=== PATIENT | male | born 1955 | race Caucasian/White ===

== ENCOUNTER → 2018-06-19 08:53 | Outpatient (CLI) | payer OTHER, SELFPAY ==
--- NOTE | 2018-06-19 09:00 | RAD_ITS ---
STUDY: X-RAY CHEST REASON FOR EXAM: Male, 62 years old. Pleural effusion TECHNIQUE: PA and lateral views of the chest. COMPARISON: None. FINDINGS: The lungs are clear and expanded. There is a small left-sided effusion. Normal size heart. Normal mediastinum and jaylyn. Normal visualized pulmonary arteries. Normal visualized aortic arch and descending thoracic aorta. There is a mild thoracolumbar dextroscoliosis. Normal visualized ribs, clavicles, and shoulders. There is no demonstrated abnormality of the visualized soft tissue structures of the upper abdomen. RAD/Chest PA and Lateral IMPRESSION: Small left-sided effusion. Mild thoracolumbar dextroscoliosis. Electronically Signed: Andrea Gary MD at 17:51 EDT , Service support ,
== END ==
PROVIDERS: Family Provider Family Medicine; PCP Family Medicine; Referring Provider Family Medicine; Visit Provider Family Medicine
DX: J90 Pleural effusion, not elsewhere classified (principal)
CPT/HCPCS: 71046

== ENCOUNTER → 2018-11-02 10:15 | Outpatient (CLI) | payer OTHER, SELFPAY ==
[2018-11-02 11:24] LABS: Absolute Lymphocyte Count 0.97 X10^3/uL (0.83-4.51); Absolute Neutrophil Count 2.4 X10^3/uL (2.0-7.7); Basophil# 0.04 X10^3/uL; Basophil% 0.9 % (0-1); Eosinophil# 0.18 X10^3/uL; Eosinophils% 4.1 % (0-5); Hematocrit 43.1 % (40-54); Hemoglobin 14.8 g/dL (13.0-16.5); Lymphocyte # 0.97 X10^3/ul (4.0); Lymphocyte % 22.2 % (19-41); Mean Corp Hgb Conc 34.3 g/dL (32-36); Mean Corpuscular Hgb 34.2 pg (27.0-32.0); Mean Corpuscular Volume 99.5 fL (80-94); Mean Platelet Vol. 10.7 fl (6.2-12.0); Monocyte# 0.73 X10^3/uL; Monocyte% 16.7 % (0-10); NRBC Flagged by Analyzer 0 % (0-5); Neutrophil # 2.42 X10^3/uL (2.7-7.7); Neutrophil % 55.6 % (47-70); Platelet Count 60 K/mm3 (150-450); RBC Distribution Width CV 16.2 % (11.6-14.6); RBC Distribution Width SD 59.4 fl (35.1-43.9); Red Blood Count 4.33 M/mm3 (4.6-6.2); White Blood Count 4.4 K/mm3 (4.4-11.0)
[2018-11-02 11:54] LABS: Anion Gap 11 (5-15); BUN 11 mg/dL (7-18); BUN/Creat Ratio 13.2 RATIO (10-20); Calcium,Total 9.1 mg/dL (8.5-10.1); Chloride 99 mmol/L (98-107); Creatinine, Serum 0.83 mg/dL (0.70-1.30); EST Glomerular Filtration Rate 99 mL/min (>60); Est Glom Filt Rate - Afr Amer 120 mL/min (>60); Glucose 92 mg/dL (74-106); Potassium 3.7 mmol/L (3.5-5.1); Sodium Level 135 mmol/L (136-145); T4 Total, Thyroxin 12.7 ug/dL (4.5-12.1); Thyroid Stim Hormone (TSH) 4.52 uIU/mL (0.358-3.74)
[2018-11-02 17:54] LABS: AST(SGOT) 130 U/L (15-37); Alanine Aminotransfer ALT/SGPT 62 U/L (16-61); Albumin, Serum 3.4 g/dL (3.2-5.0); Alkaline Phosphatase 234 U/L (45-117); Bilirubin, Direct 2.46 mg/dL (0.00-0.30); Globulin 4.4 g/dL (2.2-4.2); Protein, Total 7.8 g/dL (6.4-8.2)
[2018-11-03 09:59] LABS: T3 Total - Triiodothyronine 0.83 ng/mL (0.6-1.81)
== END ==
PROVIDERS: Family Provider Family Medicine; PCP Family Medicine; Referring Provider Family Medicine; Visit Provider Family Medicine
DX: R74.8 Abnormal levels of other serum enzymes (principal); R63.4 Abnormal weight loss
CPT/HCPCS: 36415; 80048; 80076; 84436; 84443; 84480; 85025

== ENCOUNTER → 2018-11-27 07:14 | Outpatient (CLI) | payer OTHER, SELFPAY ==
--- NOTE | 2018-11-27 07:17 | CT_ITS ---
STUDY: CT ABDOMEN WITH CONTRAST REASON FOR EXAM: Male, 62 years old. Elevated LFTs RADIATION DOSAGE (If Supplied By Facility): CTDIvol = ( 10.95 ) mGy, DLP = ( 383.05 ) mGycm TECHNIQUE: Transaxial images were obtained post I.V. administration of 100ml IV/Oral Isovue 300, and oral contrast. Sagittal and coronal images were reconstructed. Individualized dose optimization techniques were used for this CT. COMPARISON: None. FINDINGS: The visualized lung bases are unremarkable. The visualized portions of the heart are within normal limits. The liver is fatty infiltrated without mass or bile duct dilatation. Contracted thick-walled gallbladder containing sludge with subtle pericholecystic fluid. If concern for gallbladder disease ultrasound recommended.. Spleen is enlarged but homogeneous attenuation. Pancreas is normal in size and homogeneous attenuation. There is effacement of the peripancreatic fat which may represent early changes of acute pancreatitis. Normal bilateral adrenal glands. Normal right kidney. Normal left kidney. Normal visualized stomach. Normal small intestine. Normal colon. The appendix is visualized and appears normal. Minor atherosclerotic changes of the aorta without evidence for aneurysm Normal inferior vena cava. Normal retroperitoneum. Normal abdominal wall. Normal osseous structures. CT/Abdomen WITH IV Contrast IMPRESSION: Fatty infiltrated liver and splenomegaly Contracted thick-walled gallbladder with pericholecystic edema possibly representing acute cholecystitis. There is also mild effacement of the peripancreatic fat and mild pancreatitis cannot be entirely excluded. Clinical correlation recommended. Electronically Signed: Richard Elaine MD at 17:24 EDT , Service support ,
== END ==
PROVIDERS: Family Provider Family Medicine; PCP Family Medicine; Referring Provider Family Medicine; Visit Provider Family Medicine
DX: R74.8 Abnormal levels of other serum enzymes (principal)
CPT/HCPCS: 74160; Q9967

== ENCOUNTER → 2018-11-30 15:14 | Outpatient (CLI) | payer OTHER, SELFPAY ==
[2018-11-30 17:12] LABS: ALB/GLOB Ratio 0.7 RATIO (0.9-2.4); AST(SGOT) 63 U/L (15-37); Alanine Aminotransfer ALT/SGPT 51 U/L (16-61); Albumin, Serum 2.9 g/dL (3.2-5.0); Alkaline Phosphatase 162 U/L (45-117); Amylase 80 U/L (25-115); Anion Gap 8 (5-15); BUN 7 mg/dL (7-18); BUN/Creat Ratio 8.4 RATIO (10-20); Calcium,Total 8.7 mg/dL (8.5-10.1); Chloride 107 mmol/L (98-107); Creatinine, Serum 0.83 mg/dL (0.70-1.30); EST Glomerular Filtration Rate 99 mL/min (>60); Est Glom Filt Rate - Afr Amer 119 mL/min (>60); Globulin 4.1 g/dL (2.2-4.2); Glucose 89 mg/dL (74-106); Lipase 383 U/L (73-393); Potassium 3.5 mmol/L (3.5-5.1); Sodium Level 141 mmol/L (136-145)
[2018-11-30 17:18] LABS: Absolute Lymphocyte Count 1.55 X10^3/uL (0.83-4.51); Absolute Neutrophil Count 3.5 X10^3/uL (2.0-7.7); Basophil# 0.05 X10^3/uL; Basophil% 0.8 % (0-1); Eosinophil# 0.36 X10^3/uL; Eosinophils% 6.1 % (0-5); Hematocrit 43.9 % (40-54); Hemoglobin 14.9 g/dL (13.0-16.5); Lymphocyte # 1.55 X10^3/ul (4.0); Lymphocyte % 26.2 % (19-41); Mean Corp Hgb Conc 33.9 g/dL (32-36); Mean Corpuscular Hgb 34.9 pg (27.0-32.0); Mean Corpuscular Volume 102.8 fL (80-94); Mean Platelet Vol. 10.4 fl (6.2-12.0); Monocyte# 0.43 X10^3/uL; Monocyte% 7.3 % (0-10); NRBC Flagged by Analyzer 0 % (0-5); Neutrophil % 59.3 % (47-70); Platelet Count 93 K/mm3 (150-450); RBC Distribution Width CV 13.6 % (11.6-14.6); RBC Distribution Width SD 51.8 fl (35.1-43.9); Red Blood Count 4.27 M/mm3 (4.6-6.2); White Blood Count 5.9 K/mm3 (4.4-11.0)
== END ==
PROVIDERS: Family Provider Family Medicine; PCP Family Medicine; Referring Provider Family Medicine; Visit Provider Family Medicine
DX: K85.20 Alcohol induced acute pancreatitis without necrosis or infection (principal)
CPT/HCPCS: 36415; 80053; 82150; 83690; 85025

== ENCOUNTER 2021-05-23 11:48 | Inpatient (IN) | payer MEDICARE, SELFPAY ==
[2021-05-23] VITALS (9 sets, daily range): BP systolic 143–170; BP diastolic 78–97; PULSE 98–121; RESP 16–24; TEMP 36.8–37.2; O2SAT 92–93; BMI 27.5; BMI 26.6
--- NOTE | 2021-05-23 12:05 | US_ITS ---
STUDY: ABDOMINAL ULTRASOUND REASON FOR EXAM: Male, 65 years old. Jaundice -- ascites, eval liver, pancreas, spleen TECHNIQUE: Transabdominal ultrasound was performed with real-time and static smith scale imaging. TECHNICAL QUALITY: Limited. Examination limited due to the patient?s condition. COMPARISON: Comparison is made with prior CT scan the abdomen dated 11/27/2018. FINDINGS: Liver: The liver measures 13.5 cm. There is a heterogeneous echogenicity of the liver. Nodular contour suggestive of cirrhosis. The bile ducts are within normal limits. There is hepatic color flow. The direction of portal flow is hepatopetal. There is no demonstrated mass lesion. Portal vein measurement: Gallbladder: Normal distended gallbladder. The gallbladder wall is thickened and measures 4 mm. There is a negative sonographic Denson''s sign. There is no pericholecystic fluid. There are multiple echogenic structures within the gallbladder, consistent with multiple gallstones. Common Bile Duct (C.B.D.): The common bile duct was not visualized due to overlying bowel gas. Pancreas: Normal size of the head, body and tail of the pancreas. There is normal echogenicity of the pancreas. There is no demonstrated pancreatic mass or cyst. Spleen: There is splenomegaly. The spleen measures 14.6 cm x 7.3 cm x 7.7 cm. Right Kidney: Normal size of the right kidney. The right kidney measures 10.3 cm x 5.3 cm x 7.1 cm. Normal renal cortex. The right cortex measures 2.3 cm. There is no demonstrated renal mass or cyst. There is no right hydronephrosis. Left Kidney: Normal size of the left kidney. The left kidney measures 10.2 cm x 5.7 cm x 5.4 cm. Normal renal cortex. The left cortex measures 1.3 cm. There is no demonstrated renal mass or cyst. There is no left hydronephrosis. Aorta: Atherosclerotic plaque I.V.C.: The IVC is patent. There is mild ascites. US/Abdomen Complete IMPRESSION: Findings suggestive of a cirrhosis of the liver. Multiple gallstones. Splenomegaly. Ascites Electronically Signed: Andrzej Moncada MD at 14:15 EST ,
--- NOTE | 2021-05-23 12:05 | EKG12_ITS ---
Test Reason : ABDOMINAL PAIN Blood Pressure : / mmHG Vent. Rate : 105 BPM Atrial Rate : 105 BPM P-R Int : 170 ms QRS Dur : 098 ms QT Int : 374 ms P-R-T Axes : 048 -13 041 degrees QTc Int : 494 ms Sinus tachycardia Otherwise normal ECG Confirmed by MARY CARMEN FUENTES, BAM ([id number]), fan mail editor DAREN JIMÉNEZ ([id number]) on 05/24/2021 10:21:23 A M Referred By: FIDEL Confirmed By:ODILON LENTZ MD
--- NOTE | 2021-05-23 12:10 | NURSING ---
NO OLD EKGS
[2021-05-23] MEDS: 0.9% Normal Saline 1,000 ML 1000 ML IV (12:18)
[2021-05-23 12:31] LABS: AST(SGOT) 311 U/L (15-37); Alanine Aminotransfer ALT/SGPT 113 U/L (16-61); Albumin, Serum 2.7 g/dL (3.2-5.0); Alkaline Phosphatase 268 U/L (45-117); Anion Gap 12 (5-15); BUN 16 mg/dL (7-18); BUN/Creat Ratio 13.1 RATIO (10-20); Bilirubin, Direct 8.97 mg/dL (0.00-0.30); Chloride 94 mmol/L (98-107); Creatinine, Serum 1.22 mg/dL (0.70-1.30); EST Glomerular Filtration Rate 63 mL/min (>60); Est Glom Filt Rate - Afr Amer 76 mL/min (>60); Globulin 5.2 g/dL (2.2-4.2); Glucose 134 mg/dL (74-106); Lipase 789 U/L (73-393); Potassium 3.7 mmol/L (3.5-5.1); Protein, Total 7.9 g/dL (6.4-8.2); Sodium Level 130 mmol/L (136-145)
[2021-05-23 12:38] LABS: International Normalized Ratio 1.9; Partial Thromboplast Time 45.1 Seconds (24.1-36.2); Prothrombin Time (Protime)PT. 20.7 SECONDS (11.7-14.9)
[2021-05-23 13:05] LABS: Absolute Lymphocyte Count 0.94 X10^3/uL (0.83-4.51); Absolute Neutrophil Count 4.6 X10^3/uL (2.0-7.7); Basophil# 0.03 X10^3/uL; Basophil% 0.5 % (0-1); Eosinophil# 0.05 X10^3/uL; Eosinophils% 0.8 % (0-5); Hemoglobin 16.5 g/dL (13.0-16.5); Lymphocyte # 0.94 X10^3/ul (0.83-4.51); Lymphocyte % 14.5 % (19-41); Mean Corp Hgb Conc 37.5 g/dL (32-36); Mean Corpuscular Hgb 37.3 pg (27.0-32.0); Mean Corpuscular Volume 99.5 fL (80-94); Mean Platelet Vol. 11.9 fl (6.2-12.0); Monocyte# 0.85 X10^3/uL; Monocyte% 13.1 % (0-10); NRBC Flagged by Analyzer 0 % (0-5); Neutrophil # 4.58 X10^3/uL (2.7-7.7); Neutrophil % 70.8 % (47-70); POSITIVE COUNT YES; POSITIVE MORPHOLOGY YES; RBC Distribution Width CV 19.2 % (11.6-14.6); RBC Distribution Width SD 69.5 fl (35.1-43.9); Red Blood Count 4.42 M/mm3 (4.6-6.2); White Blood Count 6.5 K/mm3 (4.4-11.0)
[2021-05-23 13:07] LABS: Differential Indicated SCAN CRITERIA MET
--- NOTE | 2021-05-23 13:16 | EDS_ITS ---
HPI HPI - GI History of Present Illness Chief Complaint: Abd Pain Informant: patient and spouse/S.O. Narrative Narrative: Patient presenting significant other evaluation increasing abdominal distention and nausea over the past 3 weeks. History of alcohol dependence, he states he was told he had fatty liver 2 to 3 years ago outpatient work-up. He was sober for 10 months however started drinking again. He states he was drinking 2 beers a day would have 2-3 bourbons each evening. Over last 3 to 4 weeks increasing bourbon intake states 750ml bottle would last 3 days. They have also been noticing yellowing of eyes and skin over the same period time. Reports sinus congestion and intermittent dizziness over this period of time. No cough. No vomiting or diarrhea. Today however he was told he had a bowel movement to have black tarry stools. Denies abdominal pain. He does not take anticoagulation medications. He has never seen GI, has never had an upper endoscopy. Nonvaccinated for Covid. Prior similar symptoms: No PFSH PFSH Medical History (Updated 05/23/21 @ 16:[address] Danny Gleason DO) Cirrhosis ETOH abuse Hepatitis Home Medications NK 05/23/21 [History Last Taken Unknown] Allergy/AdvReac Type Severity Reaction Status Date / Time No Known Allergies Allergy Verified 05/23/21 11:49 Surgical History Previous back surgery Social History Smoking Status: Current every day smoker tobacco type: smokeless tobacco ROS ROS ED Constitutional Constitutional ED: Denies chills, fever(s) or sweats Eyes Eyes: Denies change in vision ENT ENT ED: Reports other Details: Sinus congestion ; Denies dysphagia or sore throat Cardiovascular Cardiovascular: Denies chest pain, leg edema, palpitations or racing heartbeat Respiratory/Chest Respiratory/Chest: Denies cough, dyspnea or dyspnea on exertion Gastrointestinal Gastrointestinal: Reports other Details: Abdominal distention, melena ; Denies abdominal pain, diarrhea, nausea or vomiting Genitourinary Genitourinary ED: Denies dysuria, hematuria or urinary frequency Musculoskeletal Musculoskeletal: Denies back pain, extremity pain or neck pain Integumentary Reports other Details: Yellowing of skin ; Denies rash or wounds Neurologic Neurologic: Denies headache(s), paresthesias or weakness EXAM Physical Exam Const Vital Signs: 05/23/21 11:49 05/23/21 13:25 Temperature 98.3 F Temperature Source Temporal Pulse Rate 121 H 101 H Respiratory Rate 24 H 21 H Blood Pressure 166/97 H 143/89 H Blood Pressure Mean 120 107 Pulse Ox 92 93 Oxygen Delivery Method Room Air Room Air Constitutional Narrative: Generalized jaundice, nontoxic General Appearance ED: NAD HEENT Reports moist mucous membranes normocephalic and atraumatic Eyes PERRL, EOMs intact bilaterally and conjunctivae normal General Eye ED: Yes normal appearance of both eyes and scleral icterus Neck no lymphadenopathy and supple General: Negative for tenderness Chest Wall Chest: Negative for tenderness Resp normal respiratory effort and normal air movement Effort and Inspection: symmetric chest movement; Negative for respiratory distress Cardio regular rhythm and no murmurs Rate: tachycardic Peripheral Pulses: pulses 2+ throughout GI normal to inspection, nondistended, normoactive bowel sounds and non-tender GI Narrative: Rectal exam, green color stool, guaiac returned positive. Inspection: abdominal distention Palpation: Negative for guarding or rebound tenderness present Back/Spine no CVA tenderness and no thoracic nor lumbar tenderness Extremity normal to inspection General Extremety ED: Negative for edema or tenderness General Extremity: Negative for edema Neuro oriented x3 and no sensory deficits noted Sensorium / Orientation: awake and alert Skin no rashes or lesions noted and no wounds MDM MDM MDM Narrative Medical decision making narrative: Patient clinical jaundice with concerns for hyperbilirubinemia he has distended abdomen with likely ascites with alcohol history. Stool guaiac was positive. Initially tachycardic which improved with fluids blood pressure stable. He is alert and oriented x3. Work-up initiated noting platelets of 40, INR 1.9, sodium 130, creatinine 1.22, total bili 12.8, direct bili 8.9, AST 311, ALT 113, alk phos 268, lipase 789 alcohol 162. Patient was given Protonix. Ultrasound obtained of the abdomen notes signs suggesting cirrhosis of the liver there is multiple gallstones, splenomegaly and ascites was noted. Patient elevated lipase however no abdominal pain. No vomiting. Pancreas was evaluated from ultrasound normal structures. Patient finding concern fluorosis component of alcoholic hepatitis. I did speak with GI Dr. Friend, agrees and recommending steroids with Solu-Medrol 40 mg IV daily. He will see him as an inpatient. I spoke with hospitalist Dr. Brody for admission to PCU. Lab Data Attestation: I reviewed the patient's lab results. Labs: Laboratory Results - last 24 hr 05/23/21 05/23/21 05/23/21 11:55 11:55 11:55 WBC 6.5 RBC 4.42 L Hgb 16.5 Hct 44.0 MCV 99.5 H MCH 37.3 H MCHC 37.5 H RDW Std Deviation 69.5 H RDW Coeff of Belinda 19.2 H Plt Count 40 L* MPV 11.9 Immature Gran % (Auto) 0.300 Neut % (Auto) 70.8 H Lymph % (Auto) 14.5 L Sebastian % (Auto) 13.1 H Eos % (Auto) 0.8 Baso % (Auto) 0.5 Absolute Neuts (auto) 4.6 Absolute Lymphs (auto) 0.94 Nucleated RBC % 0 Diff Path Review May foll Platelet Estimate MKD DEC RBC Morphology N CHROM Anisocytosis 1+ PT 20.7 H INR 1.9 APTT 45.1 H Sodium 130 L Potassium 3.7 Chloride 94 L Carbon Dioxide 24.0 Anion Gap 12 BUN 16 Creatinine 1.22 Estim Creat Clear Calc 61.50 Est GFR (MDRD) Af Amer 76 Est GFR (MDRD) Non-Af 63 BUN/Creatinine Ratio 13.1 Glucose 134 H Calcium 9.0 Total Bilirubin 12.80 H Direct Bilirubin 8.97 H AST 311 H ALT 113 H Alkaline Phosphatase 268 H Total Protein 7.9 Albumin 2.7 L Globulin 5.2 H Lipase 789 H Ethyl Alcohol Blood Type Antibody Screen 05/23/21 05/23/21 12:15 13:59 WBC RBC Hgb Hct MCV MCH MCHC RDW Std Deviation RDW Coeff of Beilnda Plt Count MPV Immature Gran % (Auto) Neut % (Auto) Lymph % (Auto) Sebastian % (Auto) Eos % (Auto) Baso % (Auto) Absolute Neuts (auto) Absolute Lymphs (auto) Nucleated RBC % Diff Path Review Platelet Estimate RBC Morphology Anisocytosis PT INR APTT Sodium Potassium Chloride Carbon Dioxide Anion Gap BUN Creatinine Estim Creat Clear Calc Est GFR (MDRD) Af Amer Est GFR (MDRD) Non-Af BUN/Creatinine Ratio Glucose Calcium Total Bilirubin Direct Bilirubin AST ALT Alkaline Phosphatase Total Protein Albumin Globulin Lipase Ethyl Alcohol 162.0 Blood Type B POSITIVE Antibody Screen NEGATIVE Radiography Diagnostic Testing: Clinical Impression(s) from Imaging Studies Abdomen Ultrasound 05/23/21 12:05 IMPRESSION: Findings suggestive of a cirrhosis of the liver. Multiple gallstones. Splenomegaly. Ascites Electronically Signed: Andrzej Moncada MD at 14:15 EST , EKG Initial EKG: Attestation: I personally reviewed and interpreted this EKG as follows: Comments: EKG sinus rate of 105, no ST or T wave changes. Discharge Plan Dx/Rx/DC Orders Clinical Impression: Acute alcoholic hepatitis, Hyperbilirubinemia, Cirrhosis, Thrombocytopenia, GI bleed, Alcohol dependence Disposition Disposition: Acute Care [facility]
[2021-05-23 14:13] LABS: Anisocytosis 1+; Platelet Count 40 K/mm3 (150-450); Platelet Estimate MKD DEC (ADEQ); Red Cell Morphology N CHROM NORMAL (NORM C&C)
--- NOTE | 2021-05-23 14:35 | NURSING ---
DR JANNET JORDAN
--- NOTE | 2021-05-23 14:52 | NURSING ---
PCU JANNET ALCOHOLIC HEPATITIS, HYPERBILIRUBINEMIS, ASCITES, GIB
--- NOTE | 2021-05-23 15:15 | CASEMGMT ---
KILEY FRANCIS Assessment: KILEY CM to room to meet with patient for initial transition planning/care coordination assessment. KILEY FRANCIS introduced self and role at [facility]. Patient voices understanding and consents to assessment at this time. Patient's Pat present at bedside and active in transition planning. Patient is alert and oriented and answers all questions appropriately, reclined on ER cart in no apparent distress. Care providers, pharmacy, and demographics verified/updated at this time. Admitting Dx: alcoholic hepatitis with upper GI bleed PCP: Julio Underwood Specialists: Denies Preferred Pharmacy: [facility] Insurance: Darlin [facility] Prescription Benefit: No, uses GoodRx Living Will/HPOA: Patient denies having a living will or HPOA. LNOK: Pat Bases Living Arrangements: Patient lives with , daughter and two grandsons (ages 14 and 16) in single story house with one step to enter the home. Patient states independent with ADLs prior to hospitalization. Patient is retired. Ambulates independently without the use of an assistive device. Smoking/ETOH: Former smoker (quit 5 yrs ago), currently chews oral tobacco, daily ETOH use (reports significant increased daily ETOH intake for the past 5-6 weeks and currently drinking 2 bottles of [place] per week), denies drug use. Patient reports he quit drinking ETOH on his own by tapering his daily intake approximately 3-4 years ago. Reports he was sober for 10 months and then began drinking again. Patient admits to experiencing withdrawal symptoms and shakiness without ETOH. Denies previous withdrawal related seizure history. Transportation: Patient has not felt well enough to drive for 3 weeks. available to drive patient and patient denies transportation concerns. DME/HHC/SNF: Patient reports he has grab bars in his home bathroom. Denies any other DME and denies need for DME at this time. Denies previous HHC or SNF stays. Patient and have no concerns with going home at time of discharge. CM to follow for any discharge planning/needs. Patient voices no concerns/needs at this time. Advised patient and to ask for CM if any questions/concerns/needs arise. Voices understanding. Plan: home
--- NOTE | 2021-05-23 15:33 | HP.PCM.HOS_ITS ---
Documented by User: Jo Ann Walters NP, STOCK PARTS INSPECTOR-C 05/23/21 17:18 HPI - General General Date of Admission: 05/23/21 HPI Narrative LISSETT CASILLAS, is a 65 M who presents to the emergency room due to abdominal bloating, nausea. Patient has an extensive history of alcohol use. He states he has been drinking heavily for 50 years. He states he was seen by his PCP a few years ago for possible cirrhosis and states at that time was told he had fatty liver. He states he weened himself off of and was sober for 10 to 11 months. He states he relapsed and has been drinking heavily again. His last drink was around 9:30 this morning which was a glass of bourbon. He states a bottle of bourbon will typically last him 3 days and he also drinks beer as well. Patient states over the past month he has noted increased abdominal swelling, fatigue, lightheadedness and nausea. He states he has not had an appetite and has had poor oral intake. He denies fever, chills. Denies shortness of breath. Reports black stools today. Denies previous black stools or darrel blood in stool. States his urine has been orange in color. Denies hematemesis. He denies other medical history besides chewing tobacco use. [facility] Medical History Cirrhosis ETOH abuse Hepatitis Home Medications NK 05/23/21 [History Last Taken Unknown] Allergy/AdvReac Type Severity Reaction Status Date / Time No Known Allergies Allergy Verified 05/23/21 11:49 Family History (Updated 05/23/21 @ 16:51 by Jo Ann Walters NP, STOCK PARTS INSPECTOR-C) Father No cardiac disease Mother CAD (coronary artery disease) Surgical History Previous back surgery Social History (Updated 05/23/21 @ 16:52 by Jo Ann Walters NP, STOCK PARTS INSPECTOR-C) household members: spouse current occupational status: retired Smoking Status: Former smoker Smokeless tobacco user: chewing tobacco alcohol intake: current alcohol intake frequency: 3 or more drinks per day Alcohol type: beer and hard liquor ROS Constitutional Constitutional: Reports fatigue and weakness; Denies change in weight, chills or fever(s) Eyes Eyes: Reports other Details: jaundice Cardiovascular Cardiovascular: Reports lightheadedness; Denies chest pain, edema, palpitations or syncope Respiratory/Chest Respiratory/Chest: Denies cough, dyspnea, productive cough, shortness of breath at rest, shortness of breath with exertion or wheezing Gastrointestinal Gastrointestinal: Reports melena and other Details: abdominal distention ; Denies abdominal pain, constipation, diarrhea, nausea or vomiting Genitourinary Genitourinary: Denies burning urination, difficulty urinating, dysuria, hematuria, urinary frequency, urinary incontinence or urinary urgency Musculoskeletal Musculoskeletal: Denies back pain, joint pain or muscle weakness Integumentary Integumentary: Denies erythema, lesions, rash or wounds Neurologic Neurologic: Reports dizziness; Denies abnormal speech, confusion, focal weakness, numbness, paresthesias, seizure-like activity or syncope Psychiatric Psychiatric: Denies anxiety or depression Hematologic/Lymphatic Hematologic/Lymphatic: Denies anemia, easy bleeding or easy bruising Allergic/Immunologic Allergic/Immunologic: Denies hives or asthma Vital Signs Vital Signs Vital Signs: 05/23/21 11:49 05/23/21 13:25 05/23/21 15:24 Temperature 98.3 F 98.2 F Temperature Source Temporal Temporal Pulse Rate 121 H 101 H 100 Respiratory Rate 24 H 21 H 23 H Blood Pressure 166/97 H 143/89 H 152/78 H Blood Pressure Mean 120 107 102 Pulse Ox 92 93 92 Oxygen Delivery Method Room Air Room Air Room Air Weight Weight: 192 lb 0.362 oz Body Mass Index (BMI) 27.5 Physical Exam Const alert, oriented x3 and no apparent distress Constitutional Narrative: Jaundiced appearing Orientation / Consciousness: awake, oriented to person, oriented to place and oriented to time HEENT normocephalic and moist oral mucous membranes Eyes PERRL, EOMs intact bilaterally and conjunctivae normal Neck no lymphadenopathy Resp normal respiratory effort and clear to auscultation bilaterally Cardio regular rate, regular rhythm and no murmurs Peripheral Pulses: pulses 2+ throughout GI normal to inspection, nondistended, normoactive bowel sounds and non-tender GI Narrative: Abdominal distention, ascites Extremity normal to inspection Skin no rashes or lesions noted Skin Narrative: Lower extremity petechial rash Lesions: no lesions Rashes: no rashes Trauma: no lacerations or abrasions Neuro CN's II-XII intact bilaterally, no focal motor deficits, no sensory deficits noted and deep tendon reflexes 2+ bilaterally Psych mental status grossly normal and affect normal Results Lab / Micro Data Result Diagrams: 05/23/21 11:55 05/23/21 11:55 Labs: Laboratory Results - last 24 hr 05/23/21 11:55: PT 20.7 H, INR 1.9, APTT 45.1 H 05/23/21 11:55: WBC 6.5, RBC 4.42 L, Hgb 16.5, Hct 44.0, MCV 99.5 H, MCH 37.3 H, MCHC 37.5 H, RDW Std Deviation 69.5 H, RDW Coeff of Belinda 19.2 H, Plt Count 40 L*, MPV 11.9, Immature Gran % (Auto) 0.300, Neut % (Auto) 70.8 H, Lymph % (Auto) 14.5 L, [place] % (Auto) 13.1 H, Eos % (Auto) 0.8, Baso % (Auto) 0.5, Absolute Neuts (auto) 4.6, Absolute Lymphs (auto) 0.94, Nucleated RBC % 0, Diff Path Review August, Platelet Estimate MKD DEC, RBC Morphology N CHROM, Anisocytosis 1+ 05/23/21 11:55: Sodium 130 L, Potassium 3.7, Chloride 94 L, Carbon Dioxide 24.0, Anion Gap 12, BUN 16, Creatinine 1.22, Estim Creat Clear Calc 61.50, Est GFR (MDRD) Af Amer 76, Est GFR (MDRD) Non-Af 63, BUN/Creatinine Ratio 13.1, Glucose 134 H, Calcium 9.0, Total Bilirubin 12.80 H, Direct Bilirubin 8.97 H, AST 311 H, ALT 113 H, Alkaline Phosphatase 268 H, Total Protein 7.9, Albumin 2.7 L, Globulin 5.2 H, Lipase 789 H 05/23/21 12:15: Blood Type B POSITIVE, Antibody Screen NEGATIVE 05/23/21 13:59: Ethyl Alcohol 162.0 Micro: Microbiology 05/23/21 13:23 Nasal Secretion SARS-CoV-2 Antigen (Rapid) - Final 05/23/21 12:19 Stool Stool Occult Blood (LOULOU) - Final Occult Blood Positive Radiology Impression Abdomen Ultrasound 05/23/21 12:05 IMPRESSION: Findings suggestive of a cirrhosis of the liver. Multiple gallstones. Splenomegaly. Ascites Electronically Signed: Andrzej Moncada MD at 14:15 EST , A/P Addt'l Comments Addt'l Comments 1. Alcoholic decompensated cirrhosis/ascites/hepatitis-abdominal ultrasound suggestive of cirrhosis, ascites. Platelet 40. Bilirubin and lipase elevated. GI consult. Spironolactone 50 mg daily and Lasix 20 mg daily with further adjustment per GI. IV PPI. IV Solu-Medrol 40 mg daily. Consider paracentesis with labs if no improvement with spironolactone, Lasix-will defer to GI. Advised on strict alcohol cessation. Fluid/Na restriction. 2. Thrombocytopenia-secondary to above. Avoid heparin products. Trend CBC. 3. Chronic alcohol abuse/impending withdrawal-initiate withdrawal protocol. Phenobarb taper. CIWA/Ativan protocol. Thiamine, folic acid, multivitamin supplementation. Patient currently not amenable to addiction medicine consult however would recommend continued discussion even long-term alcohol use. 4. Elevated blood pressure without history of hypertension-initiated on spironolactone and Lasix for cirrhosis. As needed hydralazine. 5. Moderate to severe protein calorie malnutrition-poor oral intake, muscle and fat loss. Dietitian consult. 6. Chewing tobacco use-encouraged cessation. 7. Former smoker-states he quit several years ago. Encouraged continued cessation. DVT prophylaxis-SCDs, pharmacologic prophylaxis contraindicated due to thrombocytopenia This patient was seen by RONEN Vitale under the supervision of Dr. Brody. Time spent examining patient, reviewing data and subsequent management of care: 17 Minutes Documented by User: Dr. Bert Brody MD 05/23/21 19:02 HPI - General General Date of Admission: 05/23/21 Date of Service: 05/23/21 Chief Complaint: jaundice, abdominal swelling worsening for last 3 weeks. Heavily drinking alcohol for 2 to 3 months. Melena today HPI Narrative There is a 65-year-old question gentleman with history of chronic alcohol use, dependence and tolerance since teenage came to ER with worsening of abdominal distention, nausea, bloating sensation for last 3 weeks. Patient denies abdominal pain but has increasing abdominal girth and is deeply jaundiced. His noticed yellowing skin for last 1 months. Patient also has black stool, melena today. Denies any previous history of hematemesis, melena or hematochezia. Never had EGD or colonoscopy. Patient denies fever or chills or abdominal pain. He did not drink for 10 months after that he started feeling better and then drinking back for last 2 to 3 months heavily, one and half bottle of bourbon whiskey in 2 days. He started drinking in teenage with beer which progressively got worse. Patient states he goes into severe withdrawal after 9 years of stopping drinking. His last drink was just before coming ER around 9:51 AM. He has required IV drip in the past to control withdrawal symptoms as per the patient. Vitals in the ER shows tachycardia, heart rate 120), tachypnea respiratory rate 2400, BP 176/97, pulse ox 92% on room air. His labs, CT abdomen reviewed and mentioned in HPI. [facility] Medical History Cirrhosis ETOH abuse Hepatitis Home Medications NK 05/23/21 [History Last Taken Unknown] Allergy/AdvReac Type Severity Reaction Status Date / Time No Known Allergies Allergy Verified 05/23/21 11:49 Family History (Updated 05/23/21 @ 16:51 by Jo Ann Walters NP, STOCK PARTS INSPECTOR-C) Father No cardiac disease Mother CAD (coronary artery disease) Surgical History Previous back surgery Social History (Updated 05/23/21 @ 16:52 by Jo Ann Walters NP, STOCK PARTS INSPECTOR-C) household members: spouse current occupational status: retired Smoking Status: Former smoker Smokeless tobacco user: chewing tobacco alcohol intake: current alcohol intake frequency: 3 or more drinks per day Alcohol type: beer and hard liquor ROS ROS Narrative Constitutional: Reports fatigue and weakness, malnourished HEENT: Reports systems reviewed and no addt'l complaints, except as documented Respiratory/Chest: Denies chest pain, shortness of breath at rest. Dyspnea on exertion Gastrointestinal: As mentioned in HPI. Melena Genitourinary: Denies burning urination or new urinary tract symptoms Musculoskeletal: Denies joint pain and limited range of motion Neurologic: Denies seizure-like activity skin: No ulcer. No rash Endocrinology: Reports systems reviewed and no addt'l complaints, except as documented Hematologic/Lymphatic: Reports systems reviewed and no addt'l complaints, except as documented Rest 14 ROS are negative except as mentioned in HPI Physical Exam Narrative Physical exam General: Alert, Oriented x3, Cooperative, cachectic look, BMI 26.6 kg/m? HEENT: Icterus present. Pale conjunctiva. Atraumatic, PERRLA, EOMI, No rmocephalic Oral: Oral mucosa dry. No Gingival or Mucosal Lesions/ Ulcerations Neck: Supple, No JVD, Negative Carotid Bruits Lungs: Air entry diminished in bilateral lung bases. No crepitation/rhonchi Cardiovascular: Sinus tachycardia, Normal S1, Normal S2, No murmurs Abdomen: Bowel Sounds Present, Soft, distended. Fluid thrill and shifting dullness presents history of ascites. Nontender abdomen. No rebound tenderness. : No renal angle tenderness. No suprapubic tenderness. No urine retention. No burning micturition Extremities: No edema, Capillary Refill Less than 3 Seconds Skin: Jaundice is clean. Mild healed bruise/scab on lower legs. No open ulcer. Musculoskeletal: Loss of muscles bulk of extremity, temporal loss of fat. No Tenderness to Palpation of Joints or Extremities Neurological: Cranial nerves II-XII grossly intact, DTR 2+/4 and Symmetrical, Neuro grossly intact Psych/Mental Status: Flat affect. Results Lab / Micro Data Result Diagrams: 05/23/21 11:55 05/23/21 11:55 Charges/Coding Visit Charges Inpatient E&M: 01351 Init Hosp L3 Procedures Hospitalists Procedures: 90547 Advncd Care Plan 30 Min A/P Addt'l Comments Addt'l Comments 1. Upper GI bleed most probably from esophageal varices/portal hypertensive gastropathy: Patient is being admitted in PCU. H&H 16.5/44. Platelet count 40,000 suggestive of severe thrombocytopenia. Patient had one-time melena. Blood pressure is high patient has sinus tachycardia. Patient had IV Protonix 80 mg bolus and then IV Protonix 40 mg every 12 hourly. GI DrErasto Babin is consulted and allergy discussed with him. Plan for EGD tomorrow a.m. 2. Active alcohol drinking with with decompensated alcoholic cirrhosis with jaundice, severe thrombocytopenia, ascites, splenomegaly 60 of portal hypertension. Patient INR is elevated 1.9, total bilirubin 12.8 mainly delayed bilirubinemia, 8.97. AST 311, ALT 113, Touche 2 1 ratio. Alkaline phosphatase 268. Right upper quadrant sonogram. Right upper quadrant sonogram shows cirrhosis of liver with multiple gallstones, splenomegaly and ascites consistent with clinical features. RUQ also shows hepatopetal color-flow, bile ducts within normal limit, no demonstrated mass. GB wall 4 mm, no pericholecystic fluid or negative sonographic Denson sign. Multiple gallstones. CT abdomen in November 2018 shows fatty liver and splenomegaly with contracted thick-walled gallbladder with pericholecystic edema cystic acute cholecystitis at that time. Lasix 20 mg IV now and then started on spironolactone 100 mg oral and Lasix 40 mg oral daily. Started on Coreg for portal hypertension. Patient is started on Solu-Medrol 40 mg IV daily for control of acute direct hyperkalemia most relief from alcoholic hepatitis. Diuresis co-infected is 52.8 which is a poor prognostic sign. 3. Chronic alcohol use with high risk of going acute alcohol withdrawal syndrome: Patient is started on phenobarbital based other adjunctive medications for control of alcohol withdrawal syndrome. Also on IV Ativan as per CIWA protocol. 4. Hypertension and tachycardia: May be related or beginning of alcohol withdrawal. Patient on Lasix and spironolactone and IV hydralazine. Patient also on phenobarbital and hydroxyzine for alcohol withdrawal syndrome. Patient also on Coreg. 5. Severe protein calorie malnutrition evidenced by diffuse muscle loss of extremities and temporal fossa and loss of subcutaneous fat. Echo Tech is consulted. VTE prophylaxis: Bilateral SCDs. Fungal prophylaxis contraindicated Living will/advanced directive/end of life care: Patient does not have living will or advanced directive. His is next to kin and wants to be power of immigration attorney for health. After discussion of benefits/risks procedures involved with full code, DNR CC arrest and DNR CC, the patient opted for full code. Patient does want artificial life support including intubation, tube feed, v entilator and/chest compression, central venous catheter, vasopressor and DC shock if needed Total time spent in [id number] encounter in discussion of advanced directive 16 minutes. Clinical Impression(s) from Imaging Studies Abdomen Ultrasound 05/23/21 12:05
[2021-05-23 17:36] LABS: Mucous, Urine 0 SEEN /hpf (<or=2+); Squamous Epithelial Cells - UA 0 SEEN /hpf (0-5)
[2021-05-23 17:41] LABS: Magnesium 2.2 mg/dL (1.6-2.6)
[2021-05-23 17:45] LABS: Color, Urine Amber (Yellow); Glucose, Dipstick Normal (Normal); Ketone-Dipstick 15 mg/dl (Negative); Leukocyte Esterase-Dipstick 25 /ul (Negative); Nitrite-Dipstick Positive (Negative); Occult Blood-Urine 25 /ul (Negative); Protein-Dipstick 30 mg/dl (Negative); Urine Clarity Clear (Clear); Urine Urobilinogen 12 mg/dl (Normal)
[2021-05-23 17:59] LABS: Urine Bilirubin Dipstick 6 mg/dL (Negative)
[2021-05-23 18:03] LABS: Bacteria 1+ /hpf (None Seen); Red Blood Cells-Urine 0-5 SEEN /hpf (0-5); White Blood Cells 0-5 SEEN /hpf (0-5)
[2021-05-23] MEDS: Phenobarbital 32.4 MG Tablet 64.8 MG PO ×2 (18:10→21:38)
[2021-05-23 18:16] LABS: Hemoglobin A1c 4.7 % (3.8-5.6)
--- NOTE | 2021-05-23 19:25 | CON.PCM.GI_ITS ---
HPI Consult Data Date of Consult: 05/23/21 HPI Narrative HPI Narrative: LISSETT CASILLAS, is a 65 M who presents from home with worsening abdominal distention. He has been having increasing abdominal distention and nausea over the past 3 weeks. History of alcohol dependence, he states he was told he had fatty liver 2 to 3 years ago outpatient work-up. He was sober for 10 months however started drinking again. He states he was drinking 2 beers a day would have 2-3 bourbons each evening. Over last 3 to 4 weeks increasing bourbon intake states 750ml bottle would last 3 days. They have also been noticing yellowing of eyes and skin over the same period time. Reports sinus congestion and intermittent dizziness over this period of time. No cough. No vomiting or diarrhea. Today however he was told he had a bowel movement to have black tarry stools. Denies abdominal pain. He does not take anticoagulation medications. He has never seen GI, has never had an upper endoscopy. [facility] Medical History Cirrhosis ETOH abuse Hepatitis Home Medications NK 05/23/21 [History Last Taken Unknown] Allergy/AdvReac Type Severity Reaction Status Date / Time No Known Allergies Allergy Verified 05/23/21 11:49 Family History (Updated 05/23/21 @ 16:51 by Jo Ann Walters NP, SHEET METAL DUCT INSTALLER APPRENTICE-C) Father No cardiac disease Mother CAD (coronary artery disease) Surgical History Previous back surgery Social History (Updated 05/23/21 @ 16:52 by Jo Ann Walters NP, SHEET METAL DUCT INSTALLER APPRENTICE-C) household members: spouse current occupational status: retired Smoking Status: Former smoker Smokeless tobacco user: chewing tobacco alcohol intake: current alcohol intake frequency: 3 or more drinks per day Alcohol type: beer and hard liquor ROS Gastrointestinal Gastrointestinal: Reports abdominal pain Physical Exam Const alert General Appearance: cooperative Orientation / Consciousness: oriented to person HEENT hearing grossly normal bilaterally Head and Scalp: normal to inspection Face and Sinus: face symmetric Nose: external nose normal Mouth: oral and palatal mucosa normal Eyes conjunctivae normal General Eye: normal appearance of both eyes Neck full ROM General: normal visual inspection Lymph Lymphatic: no lymphadenopathy noted Chest inspection of chest normal and palpation of chest normal Chest: symmetrical chest wall rise Resp normal respiratory effort Effort and Inspection: able to speak in complete sentences Cardio regular rate GI non-distended Palpation: soft Percussion: normal to percussion Rectal Exam: deferred Neuro Speech: speech normal Gait (Neuro): normal gait Lab / Micro Data Result Diagrams: 05/23/21 11:55 05/23/21 11:55 Labs: Laboratory Results - last 24 hr 05/23/21 11:55: PT 20.7 H, INR 1.9, APTT 45.1 H 05/23/21 11:55: WBC 6.5, RBC 4.42 L, Hgb 16.5, Hct 44.0, MCV 99.5 H, MCH 37.3 H, MCHC 37.5 H, RDW Std Deviation 69.5 H, RDW Coeff of Belinda 19.2 H, Plt Count 40 L*, MPV 11.9, Immature Gran % (Auto) 0.300, Neut % (Auto) 70.8 H, Lymph % (Auto) 14.5 L, [place] % (Auto) 13.1 H, Eos % (Auto) 0.8, Baso % (Auto) 0.5, Absolute Neuts (auto) 4.6, Absolute Lymphs (auto) 0.94, Nucleated RBC % 0, Diff Path Review May foll, Platelet Estimate MKD DEC, RBC Morphology N CHROM, Anisocytosis 1+ 05/23/21 11:55: Sodium 130 L, Potassium 3.7, Chloride 94 L, Carbon Dioxide 24.0, Anion Gap 12, BUN 16, Creatinine 1.22, Estim Creat Clear Calc 61.50, Est GFR (MDRD) Af Amer 76, Est GFR (MDRD) Non-Af 63, BUN/Creatinine Ratio 13.1, Glucose 134 H, Calcium 9.0, Total Bilirubin 12.80 H, Direct Bilirubin 8.97 H, AST 311 H, ALT 113 H, Alkaline Phosphatase 268 H, Total Protein 7.9, Albumin 2.7 L, Globulin 5.2 H, Lipase 789 H 05/23/21 11:55: Magnesium 2.2 05/23/21 11:55: Hemoglobin A1c 4.7 05/23/21 12:15: Blood Type B POSITIVE, Antibody Screen NEGATIVE 05/23/21 13:59: Ethyl Alcohol 162.0 05/23/21 17:20: Urine Color Melania, Urine Clarity Clear, Urine pH 6.0, Ur Specific [place] 1.020, Urine Protein 30 H, Urine Glucose (UA) Normal, Urine Ketones 15 H, Urine Occult Blood 25 H, Urine Nitrite Positive H, Urine Bilirubin 6 H, Urine Urobilinogen 12 H, Ur Leukocyte Esterase 25 H, Urine RBC 0-5 SEEN, Urine WBC 0-5 SEEN, Ur Squamous Epith Cells 0 SEEN, Urine Bacteria 1+, Urine Mucus 0 SEEN Micro: Microbiology 05/23/21 13:23 Nasal Secretion SARS-CoV-2 Antigen (Rapid) - Final 05/23/21 12:19 Stool Stool Occult Blood (LOULOU) - Final Occult Blood Positive Radiology Impression Abdomen Ultrasound 05/23/21 12:05 IMPRESSION: Findings suggestive of a cirrhosis of the liver. Multiple gallstones. Splenomegaly. Ascites Electronically Signed: Andrzej Moncada MD at 14:15 EST Reading Location ID and State: [facility] / [place] , Service support , Assessment & Plan Assessment/Plan (1) Acute alcoholic hepatitis: PLAN: Patient has a high Madrey is 63. Recommend steroid therapy with Solu-Medrol. He can be transitioned to prednisolone or prednisone as an outpatient. (2) Cirrhosis: PLAN: This is likely secondary to alcoholic cirrhosis. We will also need to check him for chronic hepatitis B and chronic hepatitis C. (3) Thrombocytopenia: PLAN: This is likely secondary to splenic sequestration from cirrhosis versus bone marrow suppression from acute alcoholic toxicity. (4) GI bleed: PLAN: He should undergo upper endoscopy to rule out variceal bleed as a cause of his hematemesis. Recommend Protonix. He does not have to get octreotide at this time. Not recommended any antibiotics at this time. Charges/Coding Visit Charges Inpatient E&M: 96293 Init Hosp L3
[2021-05-23] MEDS: Spironolactone 50 MG Tablet PO (19:44)
[2021-05-23] MEDS: Carvedilol 6.25 MG Tablet PO (19:55)
[2021-05-23] MEDS: Furosemide 20 MG/2 ML VIAL IV (20:05)
[2021-05-23 22:03] LABS: Hemoglobin 15.8 g/dL (13.0-16.5); POSITIVE COUNT YES
[2021-05-24] VITALS (20 sets, daily range): BP systolic 109–139; BP diastolic 63–86; PULSE 68–85; RESP 16–18; TEMP 36.3–37.6; O2SAT 90–94; BMI 26.6
[2021-05-24] MEDS: Phenobarbital 32.4 MG Tablet 64.8 MG PO ×6 (02:35→22:21)
--- NOTE | 2021-05-24 05:00 | EKG12_ITS ---
Test Reason : AM EKG Blood Pressure : / mmHG Vent. Rate : 072 BPM Atrial Rate : 072 BPM P-R Int : 164 ms QRS Dur : 092 ms QT Int : 438 ms P-R-T Axes : 027 001 022 degrees QTc Int : 479 ms Normal sinus rhythm Normal ECG When compared with ECG of 23-MAY-2021 12:22, MANUAL COMPARISON REQUIRED, DATA IS UNCONFIRMED Confirmed by MARY CARMEN FUENTES, BAM ([id number]), editorial director DAREN JIMÉNEZ ([id number]) on 05/24/2021 1:39:55 PM Referred By: JANNET Confirmed By:ODILON LENTZ MD
[2021-05-24 05:33] LABS: Absolute Lymphocyte Count 0.47 X10^3/uL (0.83-4.51); Absolute Neutrophil Count 3.8 X10^3/uL (2.0-7.7); Hematocrit 36.4 % (40-54); Hemoglobin 13.5 g/dL (13.0-16.5); Lymphocyte # 0.47 X10^3/ul (0.83-4.51); Lymphocyte % 10.3 % (19-41); Mean Corp Hgb Conc 37.1 g/dL (32-36); Mean Corpuscular Hgb 36.3 pg (27.0-32.0); Mean Corpuscular Volume 97.8 fL (80-94); Mean Platelet Vol. 11.5 fl (6.2-12.0); Monocyte# 0.31 X10^3/uL; Monocyte% 6.8 % (0-10); NRBC Flagged by Analyzer 0 % (0-5); Neutrophil # 3.77 X10^3/uL (2.7-7.7); Neutrophil % 82.7 % (47-70); POSITIVE COUNT YES; POSITIVE DIFFERENTIAL YES; POSITIVE MORPHOLOGY YES; RBC Distribution Width CV 18.6 % (11.6-14.6); RBC Distribution Width SD 65.6 fl (35.1-43.9); Red Blood Count 3.72 M/mm3 (4.6-6.2); White Blood Count 4.6 K/mm3 (4.4-11.0)
[2021-05-24 05:34] LABS: Differential Indicated SCAN CRITERIA MET
[2021-05-24 05:35] LABS: Platelet Count 33 K/mm3 (150-450)
[2021-05-24 05:41] LABS: International Normalized Ratio 2.3; Prothrombin Time (Protime)PT. 24.4 SECONDS (11.7-14.9)
[2021-05-24 05:48] LABS: Anisocytosis 2+; Differential Comment SCANNED; Macrocytosis 2+; Platelet Estimate MKD DEC (ADEQ); Target Cells RARE
[2021-05-24 06:10] LABS: ALB/GLOB Ratio 0.4 RATIO (0.9-2.4); AST(SGOT) 239 U/L (15-37); Alanine Aminotransfer ALT/SGPT 92 U/L (16-61); Alkaline Phosphatase 223 U/L (45-117); Anion Gap 7 (5-15); BUN 13 mg/dL (7-18); BUN/Creat Ratio 14.4 RATIO (10-20); Calcium,Total 8.1 mg/dL (8.5-10.1); Chloride 99 mmol/L (98-107); EST Glomerular Filtration Rate 89 mL/min (>60); Est Glom Filt Rate - Afr Amer 108 mL/min (>60); Estimated Creatinine Clearance 83.36 ml/min; Globulin 4.6 g/dL (2.2-4.2); Glucose 121 mg/dL (74-106); Potassium 4.3 mmol/L (3.5-5.1); Protein, Total 6.6 g/dL (6.4-8.2); Sodium Level 131 mmol/L (136-145); Thyroid Stim Hormone (TSH) 0.81 uIU/mL (0.358-3.74)
[2021-05-24] MEDS: 0.9% Saline Lock 10 ML Syringe IV (09:11)
[2021-05-24] MEDS: 0.9% Normal Saline 1,000 ML 15 ML IV (12:00)
--- NOTE | 2021-05-24 12:00 | EGD_PTH ---
PATIENT: LISSETT CASILLAS V LOC: U U#:[id number] AGE/SX: 65/M ROOM: [facility] RE05/23/[address]: Dr. Coreen Green DO : 1955 BED: 1 DIS: 05/26/2021 SPEC #: [id number] RECD: 05/24/21 14:30 STATUS: GONZALO JIMENEZ #: [id number] CHITO: 05/24/21 12:[address]: Ra Olafhsaan DEPT: SURGICAL PATHOLOGY RECD BY: Michael Dupont ENTERED: 05/25/21 09:26 SP TYPE: EGD BIOPSY REE DR: DO Dr. Coreen Mcdowell DO Dr. Prakash Chand, MD Tissues: Duodenum, NOS Procedures: Surgery Specimen Level IV HEADER OPERATION: EGD with biopsy (MAC) PRE-OP DIAGNOSIS: Acute alcoholic hepatitis, cirrhosis, thrombocytopenia, GI bleed TISSUE SUBMITTED: Duodenal ulcer biopsy MICROSCOPIC DIAGNOSIS Duodenal ulcer, biopsy: Minimal nonspecific chronic inflammation. Focal changes suggestive of gastric metaplasia. AM:nick 05/28/2021 MICROSCOPIC DESCRIPTION Slides are reviewed. GROSS DESCRIPTION Received in fixative is one container labeled with the patient's name and designated duodenal ulcer biopsy. The specimen consists of multiple irregular fragments of light rosenberg soft tissue that in aggregate measure 0.5 x 0.2 x 0.1 cm. The specimen is totally submitted in one cassette. / AMARILIS:nick 05/25/2021 TC:3 CPT: 76714
--- NOTE | 2021-05-24 12:02 | SUR.PREOP ---
Pt removing wedding band, silver in color, given to at bedside
--- NOTE | 2021-05-24 12:59 | OP.CCLET_ITS ---
12/24/2021 Julio Underwood Re : Upper GI endoscopy procedure for Luiz Garcia Dear Kj This procedure was performed on May. My impressions and recommendations are as follows: Impressions : - Esophageal plaques were found, consistent with candidiasis. - Grade I esophageal varices. - Portal hypertensive gastropathy. - One oozing duodenal ulcer with a visible vessel. Treated with a heater probe. Biopsied. Recommendations : - Return patient to hospital [facility] for ongoing care. - Advance diet as tolerated. - Continue present medications. Fluconazole 200 mg a day x10 days. Protonix 40 mg twice a day, nadolol 10 mg a day - Await pathology results. - Return to my office. My findings are described in the full procedure note, which is enclosed. If I can be of further assistance, please feel free to contact me at . Sincerely, Ministerio Friend, 05/24/2021 12:59:02 PM This report has been signed electronically.
--- NOTE | 2021-05-24 12:59 | OP.EGD_ITS ---
Patient Name: Luiz Garcia Procedure Date: 05/24/2021 12:33 PM Date of : 1955 Age: 65 Procedure: Upper GI endoscopy Indications: Coffee-ground emesis Providers: Ministerio Babin DO Medicines: See the Anesthesia note for documentation of the administered medications Patient Profile: This is a 65 year old male. Refer to note in patient chart for documentation of history and physical. Patient has symptoms. The symptoms first began 01,. Complications: No immediate complications. Procedure: Pre-Anesthesia Assessment: - Prior to the procedure, a History and Physical was performed, and patient medications and allergies were reviewed. The patient is competent. The risks and benefits of the procedure and the sedation options and risks were discussed with the patient. All questions were answered and informed consent was obtained. Patient identification and proposed procedure were verified by the physician in the pre-procedure area. Mental Status Examination: alert and oriented. Airway Examination: normal oropharyngeal airway and neck mobility. Respiratory Examination: clear to auscultation. CV Examination: normal. Prophylactic Antibiotics: The patient does not require prophylactic antibiotics. Prior Anticoagulants: The patient has taken no previous anticoagulant or antiplatelet agents. ASA Grade Assessment: II - A patient with mild systemic disease. After reviewing the risks and benefits, the patient was deemed in satisfactory condition to undergo the procedure. The anesthesia plan was to use moderate sedation / analgesia (conscious sedation). Immediately prior to administration of medications, the patient was re-assessed for adequacy to receive sedatives. The heart rate, respiratory rate, oxygen saturations, blood pressure, adequacy of pulmonary ventilation, and response to care were monitored throughout the procedure. The physical status of the patient was re-assessed after the procedure. After obtaining informed consent, the endoscope was passed under direct vision. Throughout the procedure, the patient's blood pressure, pulse, and oxygen saturations were monitored continuously. The gastroscope was introduced through the mouth, and advanced to the second part of duodenum. The upper GI endoscopy was accomplished without difficulty. The patient tolerated the procedure well. Moderate Sedation: Moderate (conscious) sedation was administered by the endoscopy nurse and supervised by the endoscopist. The patient's oxygen saturation, heart rate, blood pressure and response to care were monitored. Total physician intraservice time was 15 minutes. Moderate (conscious) sedation was administered by the endoscopy nurse and supervised by the endoscopist. The patient's oxygen saturation, heart rate, blood pressure and response to care were monitored. Total physician intraservice time was 15 minutes. Scope In: 12:47:35 PM Scope Out: 12:50:54 PM Total Procedure Duration Time 0 hours 3 minutes 19 seconds Findings: Diffuse, yellow plaques were found in the upper third of the esophagus and in the middle third of the esophagus. Grade I varices were found in the middle third of the esophagus and in the lower third of the esophagus. They were 5 mm in largest diameter. Severe portal hypertensive gastropathy was found in the entire examined stomach. One oozing cratered duodenal ulcer with a visible vessel was found in the duodenal bulb. The lesion was 6 mm in largest dimension. Coagulation for hemostasis using heater probe was successful. Biopsies were taken with a cold forceps for histology. Verification of patient identification for the specimen was done. Estimated blood loss was minimal. Impression: - Esophageal plaques were found, consistent with candidiasis. - Grade I esophageal varices. - Portal hypertensive gastropathy. - One oozing duodenal ulcer with a visible vessel. Treated with a heater probe. Biopsied. Recommendation: - Return patient to [facility] for [facility] care. - Advance diet as tolerated. - Continue present medications. Fluconazole 200 mg a day x10 days. Protonix 40 mg twice a day, nadolol 10 mg a day - Await pathology results. - Return to my office. Procedure Code(s): --- Professional --- 59431, 59, Esophagogastroduodenoscopy, flexible, transoral; with control of bleeding, any method 71402, Esophagogastroduodenoscopy, flexible, transoral; with biopsy, single or multiple 95100, 59, Moderate sedation services provided by the same physician or other qualified health care transport nurse performing the diagnostic or therapeutic service that the sedation supports, requiring the presence of an independent trained observer to assist in the monitoring of the patient's level of consciousness and physiological status; initial 15 minutes of intraservice time, patient age 5 years or older 16123, 59, Moderate sedation services provided by the same physician or other qualified health care transport nurse performing the diagnostic or therapeutic service that the sedation supports, requiring the presence of an independent trained observer to assist in the monitoring of the patient's level of consciousness and physiological status; initial 15 minutes of intraservice time, patient age 5 years or older CPT copyright 2017 [employer]. All rights reserved. The codes documented in this report are preliminary and upon data coder operator review may be revised to meet current compliance requirements. Ministerio Babin DO 05/24/2021 12:59:02 PM This report has been signed electronically. Number of Addenda: 1 Note Initiated On: 05/24/2021 12:33 PM Addendum Number: 1 Addendum Date: 12/24/2021 6:42:59 AM MAC was used for sedation during this procedure. Ministerio Babin DO 12/24/2021 6:43:06 AM This report has been signed electronically.
[2021-05-24 13:02] LABS: Pathologist Review Reviewed
[2021-05-24 13:17] LABS: Pathologist Review Reviewed
[2021-05-24] MEDS: Spironolactone 50 MG Tablet PO (13:55)
[2021-05-24] MEDS: Thiamine Hydrochloride 100 MG Tablet PO (13:56)
[2021-05-24] MEDS: Multivitamins,Therapeutic Tablet 1 TABLET PO (13:56)
[2021-05-24] MEDS: Furosemide 40 MG Tablet PO (13:56)
[2021-05-24] MEDS: Folic Acid 1 MG Tablet PO (13:56)
[2021-05-24] MEDS: Carvedilol 6.25 MG Tablet PO ×2 (13:57→22:23)
[2021-05-24] MEDS: Phytonadione (Vit K1) 5 MG TABLET PO (13:57)
--- NOTE | 2021-05-24 16:48 | PN.HOSP_ITS ---
Subjective Subjective Feeling ok today. No sign of withdrawal at this time. Waiting for EGD. Has no interest in following with 180 at this time and feels that he will be able to quit drinking alcohol. Objective Data Objective Data Vital Signs: Vital Signs Temp Pulse Resp BP Pulse Ox 98.0 F 83 18 119/75 92 05/24/21 16:40 05/24/21 16:40 05/24/21 16:40 05/24/21 16:40 05/24/21 16:40 Oxygen Flow Rate (L/min) 2 Oxygen Delivery Method Room Air Weight: 84.187 kg Body Mass Index (BMI) 26.6 Intake & Output: Intake and Output for Last 24 Hours 05/22/21 05/23/21 05/24/21 23:59 23:59 23:59 Intake Total 1145 / 1145 170 / 170 Output Total 125 / 125 Balance 1020 / 1020 170 / 170 Medical Nutrition Assessment Dietitian: Malnutrition Criteria Met Start: 05/24/21 10:17 Freq: Status: Active Protocol: Document 05/24/21 10:17 AG (Rec: 05/24/21 10:17 [id number]) Nutrition Malnutrition Evidence of Malnutrition Exists Yes Malnutrition (moderate): Chronic Evidenced By Suboptimal Energy Intake ( Moderate),Physical Changes ( Moderate) Clinical Problem Chronic Disease or Condition Related Malnutrition Etiology chronic, moderate malnutrition r/t inadequate protein/ calorie intake d/t excessive alcohol consumption Signs/Symptoms as evidenced by estimated PO intake meeting <75% of estimated energy needs >3 months, moderate muscle wasting/fat loss per physical exam in temporal, orbital, and acromion regions. Status Active Problem Recommendation Dietitian Recommendations/Changes advance diet as tolerated to cardiac. May benefit from Ensure Compact 4oz 4x/day w/ medpass when PO diet resumed. Lab / Micro Data Result Diagrams: 05/24/21 04:52 05/24/21 04:52 Labs: Laboratory Results - last 24 hr 05/23/21 11:55: Diff Path Review Reviewed 05/23/21 11:55: Magnesium 2.2 05/23/21 11:55: Hemoglobin A1c 4.7 05/23/21 17:20: Urine Color Melania, Urine Clarity Clear, Urine pH 6.0, Ur Specific [place] 1.020, Urine Protein 30 H, Urine Glucose (UA) Normal, Urine Ketones 15 H, Urine Occult Blood 25 H, Urine Nitrite Positive H, Urine Bilirubin 6 H, Urine Urobilinogen 12 H, Ur Leukocyte Esterase 25 H, Urine RBC 0-5 SEEN, Urine WBC 0-5 SEEN, Ur Squamous Epith Cells 0 SEEN, Urine Bacteria 1+, Urine Mucus 0 SEEN 05/23/21 21:50: Hgb 15.8, Hct 41.0 05/24/21 04:52: WBC 4.6, RBC 3.72 L, Hgb 13.5, Hct 36.4 L, MCV 97.8 H, MCH 36.3 H, MCHC 37.1 H, RDW Std Deviation 65.6 H, RDW Coeff of Belinda 18.6 H, Plt Count 33 L*, MPV 11.5, Immature Gran % (Auto) 0.200, Neut % (Auto) 82.7 H, Lymph % (Auto) 10.3 L, [place] % (Auto) 6.8, Eos % (Auto) 0.0, Baso % (Auto) 0.0, Absolute Neuts (auto) 3.8, Absolute Lymphs (auto) 0.47 L, Nucleated RBC % 0, Differential Comment SCANNED, Diff Path Review Reviewed, Platelet Estimate MKD DEC, Anisocytosis 2+, Macrocytosis 2+, Target Cells RARE 05/24/21 04:52: Sodium 131 L, Potassium 4.3, Chloride 99, Carbon Dioxide 25.0, Anion Gap 7, BUN 13, Creatinine 0.90, Estim Creat Clear Calc 83.36, Est GFR (MDRD) Af Amer 108, Est GFR (MDRD) Non-Af 89, BUN/Creatinine Ratio 14.4, Glucose 121 H, Calcium 8.1 L, Total Bilirubin 9.90 H, AST 239 H, ALT 92 H, Alkaline Phosphatase 223 H, Total Protein 6.6, Albumin 2.0 L, Globulin 4.6 H, Albumin/Globulin Ratio 0.4 L, TSH 0.81 05/24/21 04:52: Phosphorus 2.0 L, Magnesium 2.0 05/24/21 04:52: PT 24.4 H, INR 2.3 05/24/21 07:43: Ammonia 11.0 Micro: Microbiology 05/23/21 13:23 Nasal Secretion SARS-CoV-2 Antigen (Rapid) - Final 05/23/21 12:19 Stool Stool Occult Blood (LOULOU) - Final Occult Blood Positive Physical Exam Const alert, oriented x3 and no apparent distress Exam Limitations: no limitations HEENT head/scalp atraumatic, moist oral mucous membranes and oropharynx normal Head and Scalp: normocephalic Eyes PERRL, EOMs intact bilaterally and conjunctivae normal Eyes Narrative: + Scleral icterus Resp normal respiratory effort, no retractions, no use of accessory muscles and clear to auscultation bilaterally Resp Narrative: Diminished but clear Auscultation: Negative for crackles, rales, rhonchi or wheezes Cardio regular rate, regular rhythm, S1 normal heart sound, S2 normal heart sound, no murmurs, no rub, no gallops, no clicks and no JVD GI soft to palpation and non-tender GI Narrative: Mildly distended with positive fluid wave, bowel sounds normal Extremity Extremity Narrative: Trace to 1+ bilateral lower extremity edema, no cyanosis or clubbing Peripheral Pulses: Yes pulses 2+ throughout Neuro oriented x3, CN's II-XII intact bilaterally, moves all extremities, no focal motor deficits and no sensory deficits noted Sensorium / Orientation: awake and alert Assessment & Plan Assessment/Plan (1) Acute alcoholic hepatitis: (2) Hyperbilirubinemia: (3) Cirrhosis: (4) Thrombocytopenia: (5) GI bleed: (6) Alcohol dependence: (7) Elevated INR: (8) Hyponatremia: (9) Hypophosphatemia: PLAN: Acute alcoholic hepatitis -Continue steroid therapy with Solu-Medrol -Liver enzymes are improving -Bilirubin down to 9.9 today from 12 Liver cirrhosis -Hepatitis studies are pending however suspected to be alcoholic cirrhosis -We will need to start Lasix and Aldactone prior to discharge -GI is following Hypophosphatemia -IV sodium Phos replacement -Repeat Phos level in a.m. Elevated INR -May be related to nutrition and therefore 5 mg of oral vitamin K given -May also be related to Thrombocytopenia -Suspected that this is secondary to splenic sequestration and bone marrow suppression with alcohol use -Continue to monitor -Currently stable -Check CBC in a.m. GI bleed -Hemoglobin is stable however Hemoccult was positive -EGD performed today and showed esophageal plaques consistent with candidiasis, grade 1 esophageal varices, portal hypertensive gastropathy with 1 oozing duodenal ulcer and visible vessel that was treated with heater probe -Protonix 40 mg p.o. twice daily recommended to continue at discharge Esophageal varices -No banding required at this time -Nadolol 10 mg a day initiated -GI to follow as an outpatient Esophageal candidiasis -Fluconazole 200 mg a day x10 days initiated Peptic ulcer disease -Protonix p.o. twice daily until follow-up with gastroenterology -Status post heater probe -Biopsies taken Alcohol abuse with impending withdrawal -Continue phenobarbital taper -CIWA with Ativan protocol -Supportive medication Thiamine and folate Patient is reluctant to talk to 180 at this point and indicates he think feels like he can do this on his own -I did highly recommend that he talk to 180 or have some support after julio ibrahim and discussed with him how imperative it will be for him to quit drinking Severe malnutrition -We will liberalize diet once EGD has been completed -Supplements History of tobacco abuse -Patient quit smoking however uses chewing tobacco at this time -Recommend cessation of chewing tobacco DVT prophylaxis -No pharmacological prophylaxis secondary to severe thrombocytopenia -Continue SCDs CODE STATUS -Full code verified Charges/Coding Visit Charges Inpatient E&M: 10792 Subs Hosp L2
[2021-05-24] MEDS: Ceftriaxone 1 GM/50 ML BAG IV (21:34)
[2021-05-25] VITALS (13 sets, daily range): BP systolic 98–126; BP diastolic 61–81; PULSE 60–80; RESP 15–20; TEMP 36.4–36.7; O2SAT 90–92
--- NOTE | 2021-05-25 | FLU_PTH ---
PATIENT: LISSETT CASILLAS V LOC: [facility] U#:[id number] AGE/SX: 65/M ROOM: [facility] RE05/23/[address]: Dr. Coreen Green DO : 1955 BED: 1 DIS: 05/26/2021 SPEC #: [id number] RECD: 05/28/21 11:01 STATUS: GONZALO REQ #: [id number] CHITO: 05/25/21 00:[address]: Coreen Green DEPT: CYTOLOGY RECD BY: Jayson Gonzalez ENTERED: 05/28/21 11:02 SP TYPE: Fluid OTHR DR: DO Dr. Bert Mcdowell MD Dr. Rahsaan Friend, Tissues: PARACENTESIS FLUID Procedures: Special Stain Group II Surgery Specimen Level IV Cytospin Fluid HEADER OPERATION: Paracentesis PRE-OP DIAGNOSIS: Ascites TISSUE SUBMITTED: Paracentesis fluid for cytology DIAGNOSIS CYTOLOGY Paracentesis fluid for cytology (cytospin and cell block): Negative for malignant cells. AM:nick 05/29/2021 CYTOLOGY STUDY Slides are reviewed. CYTOLOGY GROSS Received is 100 ml of red cloudy fluid labeled with the patient's name and and designated per the requisition as paracentesis. Submitted for cytology preparation including cell block. / nick 05/28/2021 TC:5 CPT: 77503, 11540
[2021-05-25] MEDS: Phenobarbital 32.4 MG Tablet 64.8 MG PO ×6 (02:03→22:18)
[2021-05-25 05:48] LABS: Absolute Lymphocyte Count 0.54 X10^3/uL (0.83-4.51); Absolute Neutrophil Count 5.4 X10^3/uL (2.0-7.7); Hematocrit 36.5 % (40-54); Hemoglobin 13.4 g/dL (13.0-16.5); Lymphocyte # 0.54 X10^3/ul (0.83-4.51); Lymphocyte % 8.1 % (19-41); Mean Corp Hgb Conc 36.7 g/dL (32-36); Mean Corpuscular Hgb 35.9 pg (27.0-32.0); Mean Corpuscular Volume 97.9 fL (80-94); Mean Platelet Vol. 11.9 fl (6.2-12.0); Monocyte# 0.69 X10^3/uL; Monocyte% 10.4 % (0-10); NRBC Flagged by Analyzer 0 % (0-5); Neutrophil % 81.2 % (47-70); POSITIVE COUNT YES; POSITIVE DIFFERENTIAL YES; POSITIVE MORPHOLOGY YES; RBC Distribution Width CV 18.9 % (11.6-14.6); Red Blood Count 3.73 M/mm3 (4.6-6.2); White Blood Count 6.7 K/mm3 (4.4-11.0)
[2021-05-25 05:56] LABS: Differential Indicated SCAN CRITERIA MET
[2021-05-25 05:57] LABS: Platelet Count 35 K/mm3 (150-450)
[2021-05-25 06:23] LABS: ALB/GLOB Ratio 0.5 RATIO (0.9-2.4); AST(SGOT) 172 U/L (15-37); Alanine Aminotransfer ALT/SGPT 78 U/L (16-61); Albumin, Serum 1.9 g/dL (3.2-5.0); Alkaline Phosphatase 235 U/L (45-117); Anion Gap 6 (5-15); BUN 19 mg/dL (7-18); BUN/Creat Ratio 15.7 RATIO (10-20); Calcium,Total 7.8 mg/dL (8.5-10.1); Chloride 98 mmol/L (98-107); Creatinine, Serum 1.21 mg/dL (0.70-1.30); EST Glomerular Filtration Rate 64 mL/min (>60); Est Glom Filt Rate - Afr Amer 77 mL/min (>60); Estimated Creatinine Clearance 62.01 ml/min; Globulin 4.2 g/dL (2.2-4.2); Glucose 136 mg/dL (74-106); Potassium 3.9 mmol/L (3.5-5.1); Protein, Total 6.1 g/dL (6.4-8.2); Sodium Level 131 mmol/L (136-145)
[2021-05-25 06:26] LABS: Anisocytosis 2+; Macrocytosis 2+; Platelet Estimate MKD DEC (ADEQ)
[2021-05-25] MEDS: Carvedilol 6.25 MG Tablet PO ×2 (10:10→22:17)
[2021-05-25] MEDS: Folic Acid 1 MG Tablet PO (10:11)
[2021-05-25] MEDS: Thiamine Hydrochloride 100 MG Tablet PO (10:11)
[2021-05-25] MEDS: Multivitamins,Therapeutic Tablet 1 TABLET PO (10:11)
[2021-05-25] MEDS: Furosemide 40 MG Tablet PO (10:11)
[2021-05-25] MEDS: Spironolactone 50 MG Tablet PO (10:11)
--- NOTE | 2021-05-25 11:47 | PN.HOSP_ITS ---
Subjective Subjective Patient states he is feeling okay today. No active signs of withdrawal. Still states he does not want 180 involvement. No acute issues overnight. Objective Data Objective Data Vital Signs: Vital Signs Temp Pulse Resp BP Pulse Ox 97.7 F L 76 20 H 116/66 92 05/25/21 10:04 05/25/21 10:04 05/25/21 10:04 05/25/21 10:04 05/25/21 10:04 Oxygen Flow Rate (L/min) 2 Oxygen Delivery Method Nasal Cannula Weight: 84.187 kg Body Mass Index (BMI) 26.6 Intake & Output: Intake and Output for Last 24 Hours 05/23/21 05/24/21 05/25/21 23:59 23:59 23:59 Intake Total 1145 / 1145 795.17 / 795.17 110.25 / 110.25 Output Total 125 / 125 Balance 1020 / 1020 795.17 / 795.17 110.25 / 110.25 Medical Nutrition Assessment Dietitian: Malnutrition Criteria Met Start: 05/24/21 10:17 Freq: Status: Active Protocol: Document 05/24/21 10:17 AG (Rec: 05/24/21 10:17 [id number]) Nutrition Malnutrition Evidence of Malnutrition Exists Yes Malnutrition (moderate): Chronic Evidenced By Suboptimal Energy Intake ( Moderate),Physical Changes ( Moderate) Clinical Problem Chronic Disease or Condition Related Malnutrition Etiology chronic, moderate malnutrition r/t inadequate protein/ calorie intake d/t excessive alcohol consumption Signs/Symptoms as evidenced by estimated PO intake meeting <75% of estimated energy needs >3 months, moderate muscle wasting/fat loss per physical exam in temporal, orbital, and acromion regions. Status Active Problem Recommendation Dietitian Recommendations/Changes advance diet as tolerated to cardiac. May benefit from Ensure Compact 4oz 4x/day w/ medpass when PO diet resumed. Lab / Micro Data Result Diagrams: 05/25/21 05:09 05/25/21 05:09 Labs: Laboratory Results - last 24 hr 05/23/21 11:55: Diff Path Review Reviewed 05/24/21 04:52: Diff Path Review Reviewed 05/25/21 05:09: WBC 6.7, RBC 3.73 L, Hgb 13.4, Hct 36.5 L, MCV 97.9 H, MCH 35.9 H, MCHC 36.7 H, RDW Std Deviation 68.0 H, RDW Coeff of Belinda 18.9 H, Plt Count 35 L*, MPV 11.9, Immature Gran % (Auto) 0.300, Neut % (Auto) 81.2 H, Lymph % (Auto) 8.1 L, [place] % (Auto) 10.4 H, Eos % (Auto) 0.0, Baso % (Auto) 0.0, Absolute Neuts (auto) 5.4, Absolute Lymphs (auto) 0.54 L, Nucleated RBC % 0, Diff Path Review August, Platelet Estimate MKD DEC, Anisocytosis 2+, Macrocytosis 2+ 05/25/21 05:09: Sodium 131 L, Potassium 3.9, Chloride 98, Carbon Dioxide 27.0, Anion Gap 6, BUN 19 H, Creatinine 1.21, Estim Creat Clear Calc 62.01, Est GFR (MDRD) Af Amer 77, Est GFR (MDRD) Non-Af 64, BUN/Creatinine Ratio 15.7, Glucose 136 H, Calcium 7.8 L, Total Bilirubin 9.10 H, AST 172 H, ALT 78 H, Alkaline Phosphatase 235 H, Total Protein 6.1 L, Albumin 1.9 L, Globulin 4.2, Albumin/Globulin Ratio 0.5 L Micro: Microbiology 05/23/21 13:23 Nasal Secretion SARS-CoV-2 Antigen (Rapid) - Final 05/23/21 12:19 Stool Stool Occult Blood (LOULOU) - Final Occult Blood Positive Physical Exam Const alert, oriented x3 and no apparent distress Constitutional Narrative: Upper middle-aged white male lying in bed, sleeping but awakens easily, still jaundiced appearing, nontoxic Orientation / Consciousness: awake, oriented to person, oriented to place and oriented to time Exam Limitations: no limitations HEENT normocephalic, head/scalp atraumatic, moist oral mucous membranes and oropharynx normal HEENT Narrative: , Mallampati is 2, no thrush, buccal jaundice Head and Scalp: normocephalic Eyes Eyes Narrative: + Scleral icterus Resp normal respiratory effort, no retractions, no use of accessory muscles and clear to auscultation bilaterally Resp Narrative: Diminished but clear Auscultation: Negative for crackles, rales, rhonchi or wheezes Cardio regular rate, regular rhythm, S1 normal heart sound, S2 normal heart sound, no murmurs, no rub, no gallops, no clicks and no JVD Peripheral Pulses: pulses 2+ throughout GI normal to inspection, nondistended, normoactive bowel sounds, soft to palpation and non-tender GI Narrative: Mildly distended with positive fluid wave, bowel sounds normal Extremity normal to inspection Extremity Narrative: Trace to 1+ bilateral lower extremity edema, no cyanosis or clubbing Peripheral Pulses: Yes pulses 2+ throughout Skin Lesions: no lesions Rashes: no rashes Trauma: no lacerations or abrasions Neuro oriented x3, CN's II-XII intact bilaterally, moves all extremities, no focal motor deficits and deep tendon reflexes 2+ bilaterally Sensorium / Orientation: awake and alert Psych mental status grossly normal Assessment & Plan Assessment/Plan (1) Acute alcoholic hepatitis: (2) Hyperbilirubinemia: (3) Cirrhosis: (4) Thrombocytopenia: (5) GI bleed: (6) Alcohol dependence: (7) Elevated INR: (8) Hyponatremia: (9) Hypophosphatemia: (10) Esophageal varices: (11) Portal hypertension: (12) Ascites: PLAN: Acute alcoholic hepatitis -Continue steroid therapy with Solu-Medrol -Liver enzymes are improving -Bilirubin down to 9.1 today from 12 Liver cirrhosis -Hepatitis studies are pending however suspected to be alcoholic cirrhosis -continue Lasix 40 mg daily--> may need to increase the dose -Continue Aldactone 50 mg daily -GI is following Hypophosphatemia -Resolved Elevated INR -May be related to nutrition and therefore 5 mg of oral vitamin K given -May also be related to Liver disease -repeat INR in am Thrombocytopenia -Suspected that this is secondary to splenic sequestration and bone marrow suppression with alcohol use -Continue to monitor -Currently stable -Check CBC in a.m. GI bleed -Hemoglobin is stable however Hemoccult was positive -EGD performed today and showed esophageal plaques consistent with candidiasis, grade 1 esophageal varices, portal hypertensive gastropathy with 1 oozing duodenal ulcer and visible vessel that was treated with heater probe -Protonix 40 mg p.o. twice daily recommended to continue at discharge -Ceftriaxone initiated for SBP prophylaxis and will need discharged on therapy to complete treatment Esophageal varices -No banding required at this time -Continue Coreg 6.25 and convert to nadolol at discharge -GI to follow as an outpatient Esophageal candidiasis -Fluconazole 200 mg a day x10 days initiated Peptic ulcer disease -Protonix p.o. twice daily until follow-up with gastroenterology -Status post heater probe -Biopsies taken Alcohol abuse with impending withdrawal -Continue phenobarbital taper -CIWA with Ativan protocol -Supportive medication Thiamine and folate Patient is reluctant to talk to 180 at this point and indicates he think feels like he can do this on his own -I did highly recommend that he talk to 180 or have some support after discharge and discussed with him how imperative it will be for him to quit drinking--> patient remains reluctant Severe malnutrition -We will liberalize diet once EGD has been completed -Supplements History of tobacco abuse -Patient quit smoking however uses chewing tobacco at this time -Recommend cessation of chewing tobacco DVT prophylaxis -No pharmacological prophylaxis secondary to severe thrombocytopenia -Continue SCDs CODE STATUS -Full code verified Charges/Coding Visit Charges Inpatient E&M: 55774 Subs Hosp L2
--- NOTE | 2021-05-25 11:51 | US_ITS ---
PROCEDURE: Ultrasound guided paracentesis. DATE OF EXAMINATION: 05/25/2021.. INDICATION: Male, 65 years old. Ascites. PHYSICIAN: Andrzej Moncada M.D. TECHNIQUE: The risks, benefits, and alternatives to the procedure were explained to the patient. The specific risks of bleeding, infection, and damage to bowel were detailed and accepted. Witnessed informed consent was obtained. The abdomen was ultrasonographically surveyed. An appropriate pocket of fluid was identified at the right lower quadrant. The skin were cleaned and prepped in the usual sterile fashion. Using ultrasound guidance, the peritoneal cavity was accessed with a 5-Pashto paracentesis needle/catheter system. The trocar was removed. A total of 2270 ml of stella color fluid were removed from the peritoneal cavity. A 120 mL sample was sent to the laboratory. The catheter was removed and a sterile dressing was applied. The procedure was well tolerated. US/Paracentesis with US IMPRESSION: Ultrasound guided paracentesis. Electronically Signed: Andrzej Moncada MD at 15:25 EST ,
[2021-05-25] MEDS: Ceftriaxone 1 GM/50 ML BAG IV (12:24)
[2021-05-25] MEDS: Lidocaine 2% (20 ml mdv) 20 ML Vial INFILT (14:46)
[2021-05-25 16:26] LABS: Glucose, Body Fluid 136 mg/dL (40-70); LDH,Body Fluid 53 Units/l (Not Establ.); Protein, Body Fluid 0.7 g/dL (Not Establ.)
[2021-05-25 16:57] LABS: Body Fluid Mononuclear WBC % 83.3 %; Body Fluid Polynuclear WBC # 0.024 10^3/uL; Body Fluid Polynuclear WBC % 16.7 %; Body Fluid Total Cells Counted 0.173 10^3/ul; Red Cell Count/Body Fluid 0.008 10^6/ul; White Blood Count/Body Fluid 0.144 10^3/uL
[2021-05-25 19:33] LABS: Auto B Fluid Analyzer BKGD Ct COUNTS W/IN LIMITS (W/IN LIMITS)
[2021-05-25 19:35] LABS: Appearance/Body Fluid CLOUDY; Color/Body Fluid YELLOW; Lymphocytes 35 %; Neutrophil (Segs) 22 %; Other Cell Type/BF 43 %; Source- Body Fluid PERITONEAL FLUID
[2021-05-25 19:37] LABS: Body Fluid QC Type(s) BF1Q
[2021-05-26] VITALS (7 sets, daily range): BP systolic 113–115; BP diastolic 73–82; PULSE 64–80; RESP 12–16; TEMP 36.4–36.8; O2SAT 90–94
[2021-05-26 06:25] LABS: ALB/GLOB Ratio 0.4 RATIO (0.9-2.4); AST(SGOT) 135 U/L (15-37); Alanine Aminotransfer ALT/SGPT 72 U/L (16-61); Albumin, Serum 1.8 g/dL (3.2-5.0); Alkaline Phosphatase 282 U/L (45-117); Anion Gap 6 (5-15); BUN 19 mg/dL (7-18); Calcium,Total 7.9 mg/dL (8.5-10.1); Chloride 98 mmol/L (98-107); Creatinine, Serum 1.19 mg/dL (0.70-1.30); EST Glomerular Filtration Rate 65 mL/min (>60); Est Glom Filt Rate - Afr Amer 79 mL/min (>60); Estimated Creatinine Clearance 63.05 ml/min; Globulin 4.3 g/dL (2.2-4.2); Glucose 141 mg/dL (74-106); Protein, Total 6.1 g/dL (6.4-8.2); Sodium Level 131 mmol/L (136-145)
[2021-05-26 06:26] LABS: International Normalized Ratio 2.7; Prothrombin Time (Protime)PT. 28.1 SECONDS (11.7-14.9)
[2021-05-26] MEDS: Folic Acid 1 MG Tablet PO (08:01)
[2021-05-26] MEDS: Furosemide 40 MG Tablet PO (08:01)
[2021-05-26] MEDS: Spironolactone 50 MG Tablet PO (08:01)
[2021-05-26] MEDS: Carvedilol 6.25 MG Tablet PO (08:02)
[2021-05-26] MEDS: Multivitamins,Therapeutic Tablet 1 TABLET PO (08:02)
[2021-05-26] MEDS: Thiamine Hydrochloride 100 MG Tablet PO (08:02)
--- NOTE | 2021-05-26 11:04 | PCM.DC.SUM ---
Providers Date of Admission: 05/23/21 Primary Care Physician: Dr. Julio Underwood, Consultations 05/23/21 18:18 Consult: Gastroenterology Routine Consulting Provider: Ministerio Babin Reason for Consult: hepatitis/cirrhosis/ascites EMERGENT Consult: No MD Notified: Yes Date Notified: 05/23/21 Time Notified: 18:18 Method of Notification: Verbal Comments:: notified by ER Reason For Visit: alcoholic hepatitis with upper gi bleed Diagnosis Discharge Diagnosis (1) Acute alcoholic hepatitis: Status: Acute Code(s): K70.10 - Alcoholic hepatitis without ascites (2) Hyperbilirubinemia: Status: Acute Code(s): E80.6 - Other disorders of bilirubin metabolism (3) Cirrhosis: Status: Acute Code(s): K74.60 - Unspecified cirrhosis of liver (4) Thrombocytopenia: Status: Acute Code(s): D69.6 - Thrombocytopenia, unspecified (5) GI bleed: Status: Acute Code(s): K92.2 - Gastrointestinal hemorrhage, unspecified (6) Alcohol dependence: Status: Acute Code(s): F10.20 - Alcohol dependence, uncomplicated (7) Elevated INR: Status: Acute Code(s): R79.1 - Abnormal coagulation profile (8) Hyponatremia: Status: Acute Code(s): E87.1 - Hypo-osmolality and hyponatremia (9) Hypophosphatemia: Status: Acute Code(s): E83.39 - Other disorders of phosphorus metabolism (10) Esophageal varices: Status: Acute Code(s): I85.00 - Esophageal varices without bleeding (11) Portal hypertension: Status: Acute Code(s): K76.6 - Portal hypertension (12) Ascites: Status: Acute Code(s): R18.8 - Other ascites Medications at Discharge Home Medications carvedilol 6.25 mg PO BID #60 tab 05/26/21 ciprofloxacin HCl [Cipro] 500 mg PO BID #6 tab 05/26/21 fluconazole 200 mg PO DAILY #10 tab 05/26/21 furosemide 40 mg PO DAILY #30 tab 05/26/21 pantoprazole [Protonix] 40 mg PO BID #60 tab 05/26/21 prednisone 40 mg PO DAILY #120 tab 05/26/21 spironolactone 50 mg PO DAILY #30 tab 05/26/21 Hospital Course Operations None Procedures EGD and Paracardiocentesis Summary of Care Provided Minutes Spent on Discharge: 45 Hospital Course: Mr. Garcia is a 65-year-old white male who presented to the emergency department due to abdominal pain bloating and nausea on 05/23/2021. The patient had a known history of extensive alcohol abuse and indicated he been drinking fairly heavily for about 50 years. He was told a few years ago by his primary care physician that he had fatty liver and reported that he had weaned himself off of alcohol and was sober for about 10 to 11 months at that time. He relapsed and has again been drinking heavily. His last drink was about 930 on the day of admission at which time he had a glass of bourbon. He reports a bottle of bourbon will typically last about 3 days and he also drinks beer as well. He indicated on admission that over the last month he had had increased abdominal swelling, fatigue, lightheadedness, and nausea. His appetite has been poor and his oral intake has been inadequate. He reported black stools on the day of admission but had no previous black stools or darrel blood in the stool. He also indicated that his urine has been orange upon presentation. His vital signs were stable on admission however his laboratory data was markedly abnormal. He had a stable hemoglobin however was found to have thrombocytopenia with a platelet count of 40,000. His INR was elevated at 1.9 on admission and maxed out at 2.7 during his hospitalization. He was given 5 mg of oral vitamin K during his stay for possible nutritional vitamin K deficiencies however his INR did not improve with vitamin K administration so I suspect that his INR elevation is predominantly due to liver failure. He had hyponatremia throughout his hospitalization but remained stable. His kidney function was normal. His bilirubin on presentation was 12.8 and trended down slowly to 8.5 on discharge. He had mild transaminitis during his hospitalization with an ALT of 113 on admission which had trended down to 72 on the day of discharge and an AST of 311 on admission and had trended down to 135 on the day of discharge. Was obtained and found to be normal. On admission he was placed on phenobarbital for acute alcohol withdrawal as well as supplemental medications to address symptoms associated with withdrawal. The patient did quite well and had no prolific signs of DTs or alcohol withdrawal. Given his dark stools an EGD was performed by gastroenterology on 05/24/2021 which showed esophageal plaques that were consistent with candidiasis, grade 1 esophageal varices, portal hypertensive gastropathy and 1 oozing duodenal ulcer that had a visible vessel and was treated with heater probe. With these findings he was started on fluconazole 200 mg a day and is to complete a 10-day course. He was placed on Protonix 40 mg p.o. twice daily until he follows with Dr. Babin, and he was placed on a beta-nithya of which were utilized carvedilol 6.25 mg p.o. twice daily. With his GI bleeding he was placed on antibiotics for SBP prophylaxis with ceftriaxone he completed 2 doses prior to discharge and then was discharged on ciprofloxacin 100 mg p.o. twice daily for another 3 days to complete 5 days course. He was also initiated on Lasix and Aldactone during his hospitalization. He had a decent amount of ascites noted on physical exam and imaging and therefore a paracentesis was performed on 05/25/2021 at which time 2270 cc of fluid were removed. Fluid studies were sent and cultures were pending on discharge. Cell counts were not suggestive of SBP at the time. An ultrasound of the liver was performed as well which showed cirrhosis of the liver, multiple gallstones, splenomegaly, and ascites. He did well during his hospitalization and was stable for discharge on 05/26/2021. Prescriptions for all the above medications were faxed to the pharmacy and filled prior to discharge. He was instructed to follow-up with Dr. Babin from gastroenterology in 2 weeks and is to call on Friday for an appointment. We also advised that he call his primary care physician for an appointment in the next 1 to 2 weeks and request a basic metabolic profile be performed within the next week to assess electrolytes and renal function given the new initiation of Lasix and Aldactone. Discharge diagnoses: Liver cirrhosis secondary to alcohol use Mild acute alcoholic hepatitis Hypophosphatemia-resolved Elevated INR secondary to liver disease Thrombocytopenia secondary to splenomegaly and liver disease Acute GI bleed Peptic ulcer disease Esophageal varices Esophageal candidiasis Alcohol abuse Severe malnutrition History of tobacco abuse Physical Exam Const alert, oriented x3 and no apparent distress Constitutional Narrative: Upper middle-aged white male sitting up in bed, appears comfortable, nontoxic, has just finished breakfast and is watching television General Appearance: cooperative, comfortable, well kempt and well developed Orientation / Consciousness: awake, oriented to person, oriented to place and oriented to time Exam Limitations: no limitations HEENT normocephalic, head/scalp atraumatic, hearing grossly normal bilaterally, moist oral mucous membranes and oropharynx normal HEENT Narrative: Mallampati is 2-3, buccal jaundice is noted, no thrush Eyes PERRL, EOMs intact bilaterally and conjunctivae normal Eyes Narrative: + Scleral icterus Neck no lymphadenopathy, supple and no JVD Neck Narrative: Trachea midline, no thyroid enlargement Resp normal respiratory effort, no retractions, no use of accessory muscles and clear to auscultation bilaterally Resp Narrative: Diminished but clear Auscultation: Negative for crackles, rales, rhonchi or wheezes Cardio regular rate, regular rhythm, S1 normal heart sound, S2 normal heart sound, no murmurs, no rub, no gallops, no clicks and no JVD Peripheral Pulses: pulses 2+ throughout GI normal to inspection, nondistended, normoactive bowel sounds, soft to palpation and non-tender GI Narrative: Abdomen is mildly distended but improved since paracentesis Extremity normal to inspection Extremity Narrative: Trace extremity edema, no cyanosis or clubbing Skin no wounds, skin turgor normal and no jaundice Skin Narrative: Skin scaling bilateral lower extremities Lesions: no lesions Rashes: no rashes Trauma: no lacerations or abrasions Neuro oriented x3, CN's II-XII intact bilaterally, moves all extremities, no focal motor deficits and deep tendon reflexes 2+ bilaterally Sensorium / Orientation: awake and alert Speech: speech normal Motor Exam: strength 5/5 throughout Psych mental status grossly normal and affect normal Psych Narrative: Very pleasant and appropriately interactive Medical Records Data Medical Nutrition Assessment Dietitian: Malnutrition Criteria Met Start: 05/24/21 10:17 Freq: Status: Active Protocol: Document 05/24/21 10:17 (Rec: 05/24/21 10:17 [id number]) Nutrition Malnutrition Evidence of Malnutrition Exists Yes Malnutrition (moderate): Chronic Evidenced By Suboptimal Energy Intake ( Moderate),Physical Changes ( Moderate) Clinical Problem Chronic Disease or Condition Related Malnutrition Etiology chronic, moderate malnutrition r/t inadequate protein/ calorie intake d/t excessive alcohol consumption Signs/Symptoms as evidenced by estimated PO intake meeting <75% of estimated energy needs >3 months, moderate muscle wasting/fat loss per physical exam in temporal, orbital, and acromion regions. Status Active Problem Recommendation Dietitian Recommendations/Changes advance diet as tolerated to cardiac. May benefit from Ensure Compact 4oz 4x/day w/ medpass when PO diet resumed. Weight / BMI Weight Weight: 84.187 kg Body Mass Index (BMI) 26.6 ABG / Lab / Microbiology Data Result Diagrams: 05/25/21 05:09 05/26/21 05:10 Laboratory: Laboratory Results - last 24 hr 05/25/21 14:45: Fluid Glucose 136 H, Fluid Total Protein 0.7, Fluid LDH 53 05/25/21 14:45: Fluid Source PERITONEAL FLUID, Fluid Color YELLOW, Fluid Appearance CLOUDY, Fluid WBC 0.144, Fluid RBC 0.008, Fluid Tot Cell Count 0.173, Fld Polynuclear WBCs # 0.024, Fld Polynuclear WBCs % 16.7, Fluid Mononuclear WBCs 0.120, Fld Mononuclear WBCs % 83.3, Fluid Neutrophils 22, Fluid Lymphocytes 35, Fluid Other Cells 43, Fl Pathologist Comment May follow, Fluid Comment 2 SEE COMMENT 05/26/21 05:10: Sodium 131 L, Potassium 4.0, Chloride 98, Carbon Dioxide 27.0, Anion Gap 6, BUN 19 H, Creatinine 1.19, Estim Creat Clear Calc 63.05, Est GFR (MDRD) Af Amer 79, Est GFR (MDRD) Non-Af 65, BUN/Creatinine Ratio 16.0, Glucose 141 H, Calcium 7.9 L, Total Bilirubin 8.50 H, AST 135 H, ALT 72 H, Alkaline Phosphatase 282 H, Total Protein 6.1 L, Albumin 1.8 L, Globulin 4.3 H, Albumin/Globulin Ratio 0.4 L 05/26/21 05:10: PT 28.1 H, INR 2.7 Microbiology: Microbiology 05/23/21 13:23 Nasal Secretion SARS-CoV-2 Antigen (Rapid) - Final 05/23/21 12:19 Stool Stool Occult Blood (LOULOU) - Final Occult Blood Positive Radiography Diagnostic Testing: Radiology Impression Paracentesis Ultrasound 05/25/21 11:51 IMPRESSION: Ultrasound guided paracentesis. Electronically Signed: Andrzej Moncada MD at 15:25 EST , D/C Instructions Discharge Diet: Low fat / Low cholesterol, 8 Cup Fluid Restriction and 2000 mg Sodium Diet Discharge Activity: Return to Normal Activity Meaningful Use Info Meaningful Use Diagnoses (Choose all that apply): None applicable Discharge Plan Admission Admit Date/Time: 05/23/21 14:45 Primary Reason for Your Visit: Alcoholic Hepatitis Attending Provider: Coreen Green Primary Care Provider: Julio Underwood Consulting Providers: Ministerio Babin Instructions Additional Instructions / Restrictions: Please call primary care physician's office on Friday and request a basic metabolic profile to follow kidney function and electrolytes with Lasix and spironolactone use Please call Dr. Babin's office on Friday to make an appointment within the next 2 weeks Please complete all antibiotics as prescribed Discharge Orders/Prescriptions Prescriptions: New furosemide 40 mg Tablet 40 mg PO DAILY Qty: 30 RF: 0 carvedilol 6.25 mg Tablet 6.25 mg PO BID Qty: 60 RF: 0 spironolactone 50 mg Tablet 50 mg PO DAILY Qty: 30 RF: 0 prednisone 10 mg tablet 40 mg PO DAILY Qty: 120 RF: 0 ciprofloxacin HCl [Cipro] 500 mg tablet 500 mg PO BID Qty: 6 RF: 0 pantoprazole [Protonix] 40 mg tablet,delayed release (DR/EC) 40 mg PO BID Qty: 60 RF: 0 fluconazole 200 mg tablet 200 mg PO DAILY Qty: 10 RF: 0 Referrals / Follow Up: Julio Underwood DO [Primary Care Provider] - In 1 Week Ministerio Babin DO [STAFF PHYSICIAN] - Within 2 Weeks (Call office for appointment) Disposition Disposition (needs filled in before D/C Order can be placed): Home, Self Care Charges/Coding Visit Charges Inpatient E&M: 74041 Disch Hosp
[2021-05-26] MEDS: Ceftriaxone 1 GM/50 ML BAG IV (11:11)
[2021-05-26] MEDS: 0.9% Saline Lock 10 ML Syringe IV (11:14)
[2021-05-28 12:42] LABS: Pathologist Review Reviewed
[2021-05-28 14:03] LABS: Pathologist Comment/Body Fluid Reviewed
== END 2021-05-26 15:00 | disposition home or self-care (01) | DRG 378 ==
LOC: ED 14:53 → PCU 15:19
PROVIDERS: Anesthesiology; Internal Medicine Gastroenterology; Nurse Practitioner Family; Admitting Provider Internal Medicine; Emergency Provider Emergency Medicine; PCP Family Medicine; Visit Provider Internal Medicine
PROC: 0DJ08ZZ Inspection of Upper Intestinal Tract, Via Natural or Artificial Opening Endoscopic (ICD-10-PCS; CPT 43235; principal; 2021-05-24 11:55)
DX: K26.4 Chronic or unspecified duodenal ulcer with hemorrhage (principal); E44.0 Moderate protein-calorie malnutrition; B37.81 Candidal esophagitis; E87.1 Hypo-osmolality and hyponatremia; K76.6 Portal hypertension; D69.6 Thrombocytopenia, unspecified; E83.39 Other disorders of phosphorus metabolism; K70.31 Alcoholic cirrhosis of liver with ascites; I85.00 Esophageal varices without bleeding; F10.20 Alcohol dependence, uncomplicated; K70.10 Alcoholic hepatitis without ascites; F17.220 Nicotine dependence, chewing tobacco, uncomplicated; K80.20 Calculus of gallbladder without cholecystitis without obstruction; K31.89 Other diseases of stomach and duodenum; E56.1 Deficiency of vitamin K; K27.4 Chronic or unspecified peptic ulcer, site unspecified, with hemorrhage; Z87.891 Personal history of nicotine dependence
CPT/HCPCS: 36415; 49083; 76700; 80048; 80053; 80076; 81001; 82077; 82140; 82274; 82945; 83036; 83615; 83690; 83735; 84100; 84157; 84443; 85014; 85018; 85025; 85610; 85730; 86850; 86900; 86901; 87426; 88108; 88305; 88313; 89050; 93005; 97162; 97802; 99284; 99406; J7030; J7050; A4216; J1940; J2405; J3490

== ENCOUNTER 2021-06-04 12:19 | Outpatient (CLI) | payer MEDICARE, SELFPAY ==
[2021-06-04 13:25] LABS: Erythrocyte Sedimentation Rate 12 mm/hr (0-20)
[2021-06-04 13:26] LABS: International Normalized Ratio 1.7; Prothrombin Time (Protime)PT. 19.6 SECONDS (11.7-14.9)
[2021-06-04 13:27] LABS: Partial Thromboplast Time 35.8 Seconds (24.1-36.2)
[2021-06-04 13:46] LABS: ALB/GLOB Ratio 0.5 RATIO (0.9-2.4); AST(SGOT) 97 U/L (15-37); Alanine Aminotransfer ALT/SGPT 103 U/L (16-61); Albumin, Serum 2.2 g/dL (3.2-5.0); Alkaline Phosphatase 337 U/L (45-117); Anion Gap 4 (5-15); BUN 17 mg/dL (7-18); BUN/Creat Ratio 14.4 RATIO (10-20); Calcium,Total 8.9 mg/dL (8.5-10.1); Chloride 100 mmol/L (98-107); Creatinine, Serum 1.18 mg/dL (0.70-1.30); EST Glomerular Filtration Rate 66 mL/min (>60); Est Glom Filt Rate - Afr Amer 79 mL/min (>60); Ferritin 1308 ng/mL (26-388); Globulin 4.7 g/dL (2.2-4.2); Glucose 107 mg/dL (74-106); Protein, Total 6.9 g/dL (6.4-8.2); Sodium Level 131 mmol/L (136-145)
[2021-06-04 15:11] LABS: Absolute Lymphocyte Count 1.12 X10^3/uL (0.83-4.51); Absolute Neutrophil Count 7.8 X10^3/uL (2.0-7.7); Basophil# 0.04 X10^3/uL; Basophil% 0.4 % (0-1); Eosinophil# 0.21 X10^3/uL; Eosinophils% 2.1 % (0-5); Lymphocyte # 1.12 X10^3/ul (0.83-4.51); Lymphocyte % 11.1 % (19-41); Mean Corpuscular Volume 99.6 fL (80-94); Mean Platelet Vol. 12.4 fl (6.2-12.0); Monocyte# 0.88 X10^3/uL; Monocyte% 8.7 % (0-10); NRBC Flagged by Analyzer 0 % (0-5); Neutrophil # 7.83 X10^3/uL (2.7-7.7); Neutrophil % 77.2 % (47-70); POSITIVE COUNT YES; POSITIVE MORPHOLOGY YES; Platelet Count 51 K/mm3 (150-450); RBC Distribution Width CV 20.8 % (11.6-14.6); RBC Distribution Width SD 75.5 fl (35.1-43.9); Red Blood Count 4.46 M/mm3 (4.6-6.2); White Blood Count 10.1 K/mm3 (4.4-11.0)
[2021-06-04 15:46] LABS: Differential Indicated SCAN CRITERIA MET; Hemoglobin 16.5 g/dL (13.0-16.5); Mean Corp Hgb Conc 37.2 g/dL (32-36)
[2021-06-04 15:55] LABS: Differential Comment SCANNED
[2021-06-04 15:56] LABS: Hypochromasia 1+; Platelet Estimate MOD DEC (ADEQ); Target Cells 1+
[2021-06-06 16:10] LABS: Anti-Centromere B Ab <0.2 AI (0.0-0.9); Anti-Chromatin <0.2 AI (0.0-0.9); Anti-Jo <0.2 AI (0.0-0.9); Anti-Scleroderma-70 AB <0.2 AI (0.0-0.9); RNP Ab <0.2 AI (0.0-0.9); SJOGREN'S Anti-SS-A test < 0.2 AI (0.0-0.9); SJOGREN'S Anti-SS-B test < 0.2 AI (0.0-0.9); Smith Ab <0.2 AI (0.0-0.9)
[2021-06-06 17:50] LABS: Anti-Mitochondrial AB <20.0 Units (0.0-20.0); Anti-dsDNA Ab <1 IU/mL (0-9)
[2021-06-08 03:07] LABS: Angiotensin Convert Enzyme 132 U/L (14-82); Ceruloplasmin 19.5 mg/dL (16.0-31.0); Cytoplasmic Ab (C-ANCA) <1:20 titer (Neg:<1:20); HEPATITIS B SURFACE AG Negative (Negative); Hepatitis A IgM Antibody Positive (Negative); Hepatitis B Core AB IgM Negative (Negative)
[2021-06-08 15:21] LABS: AFP, Tumor Marker 5.8 ng/mL (0.0-8.3); Anti-Smooth Muscle ABS 14 Units (0-19); Copper, Serum or Plasma 98 ug/dL (69-132); Haptoglobin < 10 mg/dL (32-363); Hep C Antibodies 0.2 s/co ratio (0.0-0.9); Perinuclear Ab (P-ANCA) <1:20 titer (Neg:<1:20)
== END 2021-06-04 23:59 | disposition home or self-care (01) ==
PROVIDERS: PCP Family Medicine; Referring Provider Nurse Practitioner Adult Health; Visit Provider Nurse Practitioner Adult Health
DX: K74.60 Unspecified cirrhosis of liver (principal)
CPT/HCPCS: 36415; 80053; 80074; 82105; 82164; 82390; 82525; 82728; 83010; 83516; 85025; 85610; 85652; 85730; 86140; 86225; 86235; 86256

== ENCOUNTER 2021-07-02 15:09 | Outpatient (CLI) | payer MEDICARE, SELFPAY ==
[2021-07-02 15:47] LABS: Absolute Lymphocyte Count 0.95 X10^3/uL (0.83-4.51); Absolute Neutrophil Count 6.1 X10^3/uL (2.0-7.7); Basophil# 0.01 X10^3/uL; Basophil% 0.1 % (0-1); Eosinophil# 0.02 X10^3/uL; Eosinophils% 0.3 % (0-5); Hematocrit 46.4 % (40-54); Hemoglobin 17.1 g/dL (13.0-16.5); Lymphocyte # 0.95 X10^3/ul (0.83-4.51); Lymphocyte % 12.6 % (19-41); Mean Corp Hgb Conc 36.9 g/dL (32-36); Mean Corpuscular Hgb 37.7 pg (27.0-32.0); Mean Corpuscular Volume 102.4 fL (80-94); Mean Platelet Vol. 10.6 fl (6.2-12.0); Monocyte# 0.41 X10^3/uL; Monocyte% 5.4 % (0-10); NRBC Flagged by Analyzer 0 % (0-5); Neutrophil # 6.12 X10^3/uL (2.7-7.7); Neutrophil % 81.2 % (47-70); POSITIVE COUNT YES; Platelet Count 61 K/mm3 (150-450); RBC Distribution Width CV 16.8 % (11.6-14.6); RBC Distribution Width SD 63.4 fl (35.1-43.9); Red Blood Count 4.53 M/mm3 (4.6-6.2); White Blood Count 7.5 K/mm3 (4.4-11.0)
[2021-07-02 16:10] LABS: International Normalized Ratio 1.6; Prothrombin Time (Protime)PT. 18.5 SECONDS (11.7-14.9)
[2021-07-02 16:11] LABS: Vitamin B12 1785 pg/mL (211-911)
[2021-07-02 16:13] LABS: Ammonia < 10.0 umol/L (11-32)
[2021-07-02 16:23] LABS: ALB/GLOB Ratio 0.6 RATIO (0.9-2.4); AST(SGOT) 147 U/L (15-37); Alanine Aminotransfer ALT/SGPT 250 U/L (16-61); Albumin, Serum 2.5 g/dL (3.2-5.0); Alkaline Phosphatase 201 U/L (45-117); Anion Gap 7 (5-15); BUN 25 mg/dL (7-18); BUN/Creat Ratio 18.9 RATIO (10-20); Bilirubin, Direct 2.67 mg/dL (0.00-0.30); Calcium,Total 9.1 mg/dL (8.5-10.1); Chloride 100 mmol/L (98-107); Creatinine, Serum 1.32 mg/dL (0.70-1.30); EST Glomerular Filtration Rate 58 mL/min (>60); Est Glom Filt Rate - Afr Amer 70 mL/min (>60); Globulin 4.5 g/dL (2.2-4.2); Glucose 98 mg/dL (74-106); Potassium 4.3 mmol/L (3.5-5.1); Sodium Level 135 mmol/L (136-145)
[2021-07-02 16:24] LABS: Differential Indicated SCAN CRITERIA MET
[2021-07-02 16:26] LABS: Platelet Estimate MOD DEC (ADEQ)
[2021-07-02 16:27] LABS: Anisocytosis 1+; Macrocytosis 1+; Red Cell Morphology N CHROM NORMAL (NORM C&C)
[2021-07-05 18:28] LABS: Vitamin D 1,25-Dihydroxy 34.3 pg/mL (19.9-79.3)
== END 2021-07-02 23:59 | disposition home or self-care (01) ==
PROVIDERS: PCP Family Medicine; Visit Provider Nurse Practitioner Adult Health
DX: K74.60 Unspecified cirrhosis of liver (principal)
CPT/HCPCS: 36415; 80053; 82140; 82248; 82607; 82652; 82746; 85025; 85610

== ENCOUNTER → 2021-07-27 | Outpatient (CLI) | payer MEDICARE, SELFPAY ==
--- NOTE | 2021-07-27 10:09 | RAD_ITS ---
INDICATION: PORTAL HTN EXAMINATION/TECHNIQUE: X-RAY - XR Chest 2 Views COMPARISON: 06/19/2018. FINDINGS: LINES/DEVICES: None. LUNGS: No consolidation, edema or effusion. No pneumothorax. MEDIASTINUM AND CARDIOVASCULAR STRUCTURES: Cardiac silhouette not enlarged. Central airways and mediastinal contour are unremarkable. BONES AND SOFT TISSUES: Unremarkable. RAD/Chest PA and Lateral IMPRESSION: No radiographic evidence of acute cardiopulmonary disease. Electronically Signed: Mike Hanson MD at 13:23 EDT ,
[2021-07-27 11:01] LABS: Absolute Lymphocyte Count 0.97 X10^3/uL (0.83-4.51); Absolute Neutrophil Count 5.1 X10^3/uL (2.0-7.7); Basophil# 0.01 X10^3/uL; Basophil% 0.1 % (0-1); Hematocrit 41.6 % (40-54); Hemoglobin 14.8 g/dL (13.0-16.5); Lymphocyte # 0.97 X10^3/ul (0.83-4.51); Mean Corp Hgb Conc 35.6 g/dL (32-36); Mean Corpuscular Hgb 36.6 pg (27.0-32.0); Mean Platelet Vol. 10.8 fl (6.2-12.0); Monocyte# 0.75 X10^3/uL; Monocyte% 10.8 % (0-10); NRBC Flagged by Analyzer 0 % (0-5); Neutrophil # 5.09 X10^3/uL (2.7-7.7); Neutrophil % 73.7 % (47-70); POSITIVE COUNT YES; POSITIVE MORPHOLOGY YES; Platelet Count 66 K/mm3 (150-450); RBC Distribution Width CV 17.5 % (11.6-14.6); RBC Distribution Width SD 67.7 fl (35.1-43.9); Red Blood Count 4.04 M/mm3 (4.6-6.2); White Blood Count 6.9 K/mm3 (4.4-11.0)
[2021-07-27 11:06] LABS: Differential Indicated SCAN CRITERIA MET
[2021-07-27 11:34] LABS: Rheumatoid Factor < 10.0 IU/mL (<15)
[2021-07-27 11:43] LABS: Anisocytosis 1+; Macrocytosis 1+
[2021-07-30 14:32] LABS: CCP IgG Antibodies 8 units (0-19)
== END | disposition home or self-care (01) ==
LOC: RAD 09:54
PROVIDERS: PCP Family Medicine; Visit Provider Internal Medicine Rheumatology
DX: R89.9 Unspecified abnormal finding in specimens from other organs, systems and tissues (principal); K76.6 Portal hypertension; K70.30 Alcoholic cirrhosis of liver without ascites; K25.9 Gastric ulcer, unspecified as acute or chronic, without hemorrhage or perforation
CPT/HCPCS: 36415; 71046; 85025; 86200; 86431

== ENCOUNTER 2021-07-31 11:09 | Day surgery (SDC) | payer MEDICARE, SELFPAY ==
[2021-07-31] VITALS (7 sets, daily range): BP systolic 86–129; BP diastolic 39–86; PULSE 69–78; RESP 16–18; TEMP 36.1–36.4; O2SAT 3–100; BMI 23.3
[2021-07-31] MEDS: Lactated Ringers 1,000 ML 15 ML IV (11:34)
--- NOTE | 2021-07-31 12:18 | PCM.HP.BLA ---
History and Physical Date of Admission: 07/31/21 LISSETT CASILLAS, is a 65 M who presents to the office today for one month f/u acute alcoholic hepatitis and cirrhosis with ascites Feeling more tired and more brain fog--wonders if it's because he is tapering off prednisone, currently at 20 mg daily. He took 40 mg daily x 1 month and now we're tapering him off. Fingers are clamping shut intermittently during the day, started 8 yrs ago but worse recently. Occas cramps in foot and thigh. One episode of sleepwalking, became aware but was out of it. Doing things like leaving the stove burners on. Voice hoarse still since endoscopy Stools normal brown now, BM 1-2x per day Urine clear to light yellow His eyes were yellow a couple weeks ago, had labs done at PCP, reports bilirubin was in 6-range which was improved He has repeat EGD 07/31/21 to f/u esophageal varices Patient introduced to this practice during hospitalization 05/23/21-05/26/21 for acute alcoholic hepatitis and new diagnosis of cirrhosis with ascites. No alcohol since his admission; his last drink was on the morning of admission. He had presented to the emergency department due to abdominal pain, bloating and nausea, hx of extensive alcohol abuse, hx of fatty liver. He had dark stool on day of admission and his urine had been orange; now stools have been normal, and urine is now yellow. He and his report his jaundice is less obvious. He denies pruritus. Denies confusion, mental fogginess. He is less tired overall than before hospitalization, however he reports feeling tired after he takes his medications. BM 1-2x per day, no melena or hematochezia. While hospitalized he was started on carvedilol, furosemide, spironolactone, pantoprazole, and prednisone. High Maddrey score 64 so his alcoholic hepatitis was treated with Solu-Medrol inpatient then transitioned to prednisone. Dr Babin did EGD, found esophageal varices, portal hypertensive gastropathy, bleeding duodenal ulcer which was treated with a heater probe and biopsied, esophageal candidiasis. He was treated with 5 days of fluconazole for the candidiasis. Pathology: gastric metaplasia from duodenal ulcer biopsy. Ammonia was normal. He has had a normal hemoglobin. He has thrombocytopenia, platelets 35,000 at discharge. INR was max of 2.7. He has hyponatremia. Kidney function has been normal. Bilirubin was 12.8 at presentation and decreased to 8.5 at discharge. Using his labs at discharge his MELD score was 30. Primary care doctor got labs on 05/30/2021, bilirubin was 9.8. An ultrasound of the liver was performed as well which showed cirrhosis of the liver, multiple gallstones, splenomegaly, and ascites. CT: Fatty infiltrated liver and splenomegaly Contracted thick-walled gallbladder with pericholecystic edema possibly representing acute cholecystitis. There is also mild effacement of the peripancreatic fat and mild pancreatitis cannot be entirely excluded. He had paracentesis with 2270 mL ascites removed, negative for malignancy. EGD 05/24/21: Impression: - Esophageal plaques were found, consistent with candidiasis. - Grade I esophageal varices. - Portal hypertensive gastropathy. - One oozing duodenal ulcer with a visible vessel. Treated with a heater probe. Biopsied. ROS Const Constitutional: Positive for fatigue and weight change ENT ENT: Positive for hoarseness and sore throat; No difficulty swallowing Gastro GI: No abdominal pain, belching, bloating, change in bowel habits, change in stool character, coffee ground emesis, constipation, cramping, diarrhea, heartburn, difficulty swallowing, feeling full early, excessive flatus, incontinent of stools, Vomiting blood/hematemesis, Blood in stool, loose stools, Black,tarry stools, nausea/dyspepsia, pain with swallowing, vomiting or other Genitourinary Male: Positive for urinary frequency and urinary urgency Musc Musculoskeletal: Positive for joint pain, muscle cramps, muscle weakness and stiffness Skin Skin: No yellowing of the eye or itchy eyes Psych Psychiatric: No anxiety and No depression Endo Endocrine: Positive for fatigue and weight change Aller/Imm Allergy/Immunologic: No itchy eyes Pedro/Lymp Hematologic/Lymphatic: No easy bleeding or easy bruising Exam Const General: ill appearing chronically Eyes Conjunctivae: conjunctivae normal Sclera: sclerae normal GI Inspection: distended and other (bruising from his recent hernia repair surgery) Palpation: soft and tender in the epigastrum and in the RUQ Quality Reporting Tobacco Screening ([facility] 138) Smoking Status: Former smoker Assessment and Plan Assessment and Plan (1) Cirrhosis: Status: Acute (2) Acute alcoholic hepatitis: Status: Acute Orders: Orders: Vitamin B12 Today K74.60 Folates, (Folic Acid) Today K74.60 Comprehensive Metabolic Profil Today K74.60 Prothrombin Time w/INR Today K74.60 CBC W/Diff, Automated Today K74.60 Ammonia Today K74.60 Vitamin D 1,25-Dihydroxy Today K74.60 Plan - Melissa Navarrete [facility], [facility]: Labs today Continue tapering off prednisone, used for alcoholic hepatitis Continue diuretics for ascites Continue carvedilol for esophageal varices Nystatin swish and swallow for hoarse voice from keara Lactulose for hepatic encephalopathy He is scheduled for EGD in 4 wks to f/u F/u after EGD w/ Dr Babin Plan Details Other Medications: New: nystatin 500,000 units (5 mL) PO Q6H 473 mL 0RF swish and swallow lactulose 20 grams (30 mL) PO BID 3,000 mL 1RF I have re-examined the patient. There are no clinical changes since date of exam.
--- NOTE | 2021-07-31 12:43 | OP.EGD_ITS ---
Patient Name: Luiz Garcia Procedure Date: 07/31/2021 11:29 AM Date of : 1955 Age: 65 Procedure: Upper GI endoscopy Indications: Cirrhosis with suspected esophageal varices Providers: Ministerio Babin DO Referring MD: Julio Underwood Medicines: See the Anesthesia note for documentation of the administered medications Patient Profile: This is a 65 year old male. Refer to note in patient chart for documentation of history and physical. Patient has symptoms. Complications: No immediate complications. Procedure: Pre-Anesthesia Assessment: - Prior to the procedure, a History and Physical was performed, and patient medications and allergies were reviewed. The risks and benefits of the procedure and the sedation options and risks were discussed with the patient. All questions were answered and informed consent was obtained. Patient identification and proposed procedure were verified by the physician in the pre-procedure area. Mental Status Examination: alert and oriented. Airway Examination: normal oropharyngeal airway and neck mobility. Respiratory Examination: clear to auscultation. CV Examination: normal. Prophylactic Antibiotics: The patient does not require prophylactic antibiotics. Prior Anticoagulants: The patient has taken no previous anticoagulant or antiplatelet agents. After reviewing the risks and benefits, the patient was deemed in satisfactory condition to undergo the procedure. The anesthesia plan was to use moderate sedation / analgesia (conscious sedation). Immediately prior to administration of medications, the patient was re-assessed for adequacy to receive sedatives. The heart rate, respiratory rate, oxygen saturations, blood pressure, adequacy of pulmonary ventilation, and response to care were monitored throughout the procedure. The physical status of the patient was re-assessed after the procedure. After obtaining informed consent, the endoscope was passed under direct vision. Throughout the procedure, the patient's blood pressure, pulse, and oxygen saturations were monitored continuously. The gastroscope was introduced through the mouth, and advanced to the second part of duodenum. The upper GI endoscopy was accomplished without difficulty. The patient tolerated the procedure well. Moderate Sedation: Moderate (conscious) sedation was administered by the endoscopy nurse and supervised by the endoscopist. The patient's oxygen saturation, heart rate, blood pressure and response to care were monitored. Total physician intraservice time was 15 minutes. Scope In: 12:24:18 PM Scope Out: 12:33:52 PM Total Procedure Duration Time 0 hours 9 minutes 34 seconds Findings: Three columns of non-bleeding grade II varices were found in the mid esophagus and in the distal esophagus, 35 cm from the incisors. They were 5 mm in largest diameter. Stigmata of recent bleeding were evident and red liliana signs were present. Three bands were successfully placed with incomplete eradication of varices. There was no bleeding during the procedure. Mild portal hypertensive gastropathy was found in the entire examined stomach. Four non-bleeding cratered gastric ulcers with no stigmata of bleeding were found in the gastric antrum. The largest lesion was 6 mm in largest dimension. Biopsies were taken with a cold forceps for histology. Verification of patient identification for the specimen was done. Estimated blood loss was minimal. Patchy mildly erythematous mucosa without active bleeding and with no stigmata of bleeding was found in the duodenal bulb. Impression: - Recently bleeding grade II esophageal varices. Incompletely eradicated. Banded. - Portal hypertensive gastropathy. - Non-bleeding gastric ulcers with no stigmata of bleeding. Biopsied. - Erythematous duodenopathy. Recommendation: - Discharge patient to home. - Resume previous diet. - Use Protonix (pantoprazole) 40 mg PO BID for 8 weeks. - Use sucralfate tablets 1 gram PO BID for 4 weeks. - Continue present medications. Procedure Code(s): --- Professional --- 04546, Esophagogastroduodenoscopy, flexible, transoral; with band ligation of esophageal/gastric varices 45304, Esophagogastroduodenoscopy, flexible, transoral; with biopsy, single or multiple G0500, Moderate sedation services provided by the same physician or other qualified health home health care respiratory therapist performing a gastrointestinal endoscopic service that sedation supports, requiring the presence of an independent trained observer to assist in the monitoring of the patient's level of consciousness and physiological status; initial 15 minutes of intra-service time; patient age 5 years or older (additional time may be reported with 65275, as appropriate) CPT copyright 2017 [employer]. All rights reserved. The codes documented in this report are preliminary and upon sports commentator review may be revised to meet current compliance requirements. Ministerio Babin DO 07/31/2021 12:43:26 PM This report has been signed electronically. Number of Addenda: 1 Note Initiated On: 07/31/2021 11:29 AM Addendum Number: 1 Addendum Date: 01/03/2022 6:24:45 AM MAC was used as sedation for this procedure. Ministerio Babin DO 01/03/2022 6:24:53 AM This report has been signed electronically.
--- NOTE | 2021-07-31 12:43 | OP.CCLET_ITS ---
01/03/2022 Julio Underwood Re : Upper GI endoscopy procedure for Luiz Garcia Dear Kj This procedure was performed on Saturday, July 31, 2021. My impressions and recommendations are as follows: Impressions : - Recently bleeding grade II esophageal varices. Incompletely eradicated. Banded. - Portal hypertensive gastropathy. - Non-bleeding gastric ulcers with no stigmata of bleeding. Biopsied. - Erythematous duodenopathy. Recommendations : - Discharge patient to home. - Resume previous diet. - Use Protonix (pantoprazole) 40 mg PO BID for 8 weeks. - Use sucralfate tablets 1 gram PO BID for 4 weeks. - Continue present medications. My findings are described in the full procedure note, which is enclosed. If I can be of further assistance, please feel free to contact me at . Sincerely, Ministerio Babin, 07/31/2021 12:43:26 PM This report has been signed electronically.
== END 2021-07-31 13:42 | disposition home or self-care (01) ==
LOC: EN 11:13 → AC 11:13
PROVIDERS: PCP Family Medicine; Referring Provider Family Medicine; Visit Provider Internal Medicine Gastroenterology
PROC: 0DJ08ZZ Inspection of Upper Intestinal Tract, Via Natural or Artificial Opening Endoscopic (ICD-10-PCS; CPT 43235; principal; 2021-07-31 11:55)
DX: K70.10 Alcoholic hepatitis without ascites (principal); K76.6 Portal hypertension; I85.01 Esophageal varices with bleeding; K74.60 Unspecified cirrhosis of liver; K31.89 Other diseases of stomach and duodenum; Z87.891 Personal history of nicotine dependence; K25.9 Gastric ulcer, unspecified as acute or chronic, without hemorrhage or perforation
CPT/HCPCS: 43239; 43244; 87426; C9803; J7120; J2405

== ENCOUNTER 2021-08-03 08:05 | Inpatient (IN) | payer MEDICARE, SELFPAY ==
[2021-08-03] VITALS (37 sets, daily range): BP systolic 64–100; BP diastolic 31–68; PULSE 78–105; RESP 17–23; TEMP 36.4–37.6; O2SAT 88–97; BMI 23.6; BMI 23.1
--- NOTE | 2021-08-03 08:27 | EKG12_ITS ---
Test Reason : Blood Pressure : / mmHG Vent. Rate : 084 BPM Atrial Rate : 084 BPM P-R Int : 148 ms QRS Dur : 086 ms QT Int : 370 ms P-R-T Axes : 008 -15 001 degrees QTc Int : 437 ms Normal sinus rhythm Nonspecific ST-Segment abnormality Compared with the previous ECG of 05/24/2021 (05:00) there are similar type changes Confirmed by MIRTHA FUENTES, DESHAWN ([id number]), news videotape editor DAREN JIMÉNEZ ([id number]) on 08/06/2021 11:25:08 AM Referred By: ERNIE Confirmed By:DESHAWN SHANNON MD
--- NOTE | 2021-08-03 08:28 | EX.ED.DYSGE1 ---
HPI History of Present Illness Chief Complaint: Weakness Informant: patient and family Onset/Context/Timing Onset: Days (2) Context: Gradual Onset Timing: Continuous Quality: Weak and sore/achy Location: Mainly both lower extremities Current Severity: Severe Maximum Severity: Severe Worsened by: Trying to walk Relieved by: Resting lying down Associated Symptoms Associated Symptoms: Hematuria overnight, no others that are new Narrative Narrative: Patient has hepatic cirrhosis, he is chronically disoriented off and on, it waxes and wanes, and that is no different. 2 days ago he had an EGD and had some varices that were banded according to family. He was not vomiting any blood prior to that, nor is he now. Denies any blood in his stools that he knows of. Blood at the urethral meatus and with urinating started overnight and into this morning. No recent falls or injury. He has been drinking water, his appetite is poor but he has been eating some things and when he does swallow he has no issues or symptoms. No more confusion than usual. He is on lactulose and has been compliant with it. [facility] Medical History Alcohol dependence Anxiety Ascites Chewing tobacco use Cirrhosis ETOH abuse GI bleed Hepatitis History of ulceration Hyperbilirubinemia Hypertension Hyponatremia Hypophosphatemia Occasional tremors Poor historian Portal hypertension Shortness of breath on exertion Thrombocytopenia Home Medications lactulose 20 gram/30 mL oral solution 20 g PO BID #3000 ml 07/02/21 [Rx Last Taken Unknown] prednisone 10 mg tablet See Rx Instructions PO DAILY #60 tab 07/09/21 [Rx Last Taken 07/31/21] carvedilol 6.25 mg tablet 6.25 mg PO BID #60 tab 07/18/21 [Rx Last Taken 07/31/21] furosemide 40 mg tablet 40 mg PO DAILY #30 tab 07/18/21 [Rx Last Taken Unknown] pantoprazole 40 mg tablet,delayed release 40 mg PO BID #60 tab 07/18/21 [Rx Last Taken 07/31/21] spironolactone 50 mg tablet 50 mg PO DAILY #30 tab 07/18/21 [Rx Last Taken Unknown] sucralfate 100 mg/mL oral suspension 10 ml PO Q6H 28 Days #1120 ml 07/31/21 [Rx Last Taken Unknown] Allergy/AdvReac Type Severity Reaction Status Date / Time No Known Allergies Allergy Verified 08/03/21 08:09 Family History Father No cardiac disease Mother CAD (coronary artery disease) Surgical History Hx of esophagogastroduodenoscopy Previous back surgery Social History household members: spouse current occupational status: retired Smoking Status: Smoker, status unknown tobacco type: smokeless tobacco Smokeless tobacco user: chewing tobacco alcohol intake: current alcohol intake frequency: 3 or more drinks per day Alcohol type: beer and hard liquor ROS ROS ED Constitutional Constitutional ED: Reports fatigue; Denies chills or fever(s) Eyes Eyes: Denies change in vision or diplopia ENT ENT ED: Reports dry mouth; Denies rhinorrhea or sore throat Cardiovascular Cardiovascular: Denies chest pain or palpitations Respiratory/Chest Respiratory/Chest: Denies cough or dyspnea Gastrointestinal Gastrointestinal: Denies abdominal pain, diarrhea, nausea or vomiting Genitourinary Genitourinary ED: Denies dysuria or hematuria Musculoskeletal Musculoskeletal: Reports extremity pain; Denies back pain or neck pain Integumentary Denies abscess or rash Neurologic Neurologic: Reports as per HPI, confusion and weakness; Denies headache(s) or paresthesias Psychiatric Psychiatric: Denies anxiety or suicidal thoughts EXAM Physical Exam Const Vital Signs: 08/03/21 08:06 08/03/21 08:27 08/03/21 08:46 Temperature 98.0 F Temperature Source Oral Pulse Rate 88 78 Respiratory Rate 18 20 H Respiratory Effort Respiratory Pattern Blood Pressure 85/59 L Blood Pressure Mean 67 Pulse Ox 89 94 94 Oxygen Delivery Method Room Air Nasal Cannula Nasal Cannula Oxygen Flow Rate (L/min) 2 2 08/03/21 08:49 08/03/21 09:08 08/03/21 10:02 Temperature 98.8 F Temperature Source Oral Pulse Rate 81 89 Respiratory Rate 20 H 22 H Respiratory Effort Normal Non-Labored Respiratory Pattern Normal Blood Pressure 89/61 L 100/60 Blood Pressure Mean 70 73 Pulse Ox 92 93 Oxygen Delivery Method Nasal Cannula Nasal Cannula Oxygen Flow Rate (L/min) 2 2 Positive well nourished and well developed General Appearance ED: well developed and NAD HEENT Reports moist mucous membranes HEENT Narrative: Oral mucous membranes are moist but lips are dry normocephalic and atraumatic Eyes PERRL and EOMs intact bilaterally General Eye ED: Yes scleral icterus Neck full ROM and supple Resp normal respiratory effort and clear to auscultation bilaterally Cardio regular rate, regular rhythm and no murmurs GI non-tender GI Narrative: Very mildly distended, soft, and not firm. No tenderness, nor rebound tenderness. Auscultation: normoactive bowel sounds Palpation: soft Back/Spine no CVA tenderness General Back: other FROM Extremity normal to inspection and no pedal edema Extremity Narrative: All compartments in both lower extremities are soft and nondistended and normal, symmetric appearing. No palpable cords. No tender joints, no calf tenderness, no foot tenderness. They are normal-appearing with 2+/4 pulses bilaterally. Better range of motion when I assist him with regards to the hip and knee, which do not hurt to range passively. General Extremety ED: Negative for edema, pulses abnormal or tenderness General Extremity: Negative for edema or pulses abnormal Neuro oriented x3, CN's II-XII intact bilaterally and no sensory deficits noted Neuro Narrative: Occasional mild disorientation although patient eventually answers orientation questions correctly, such as the day of the week, date, year. Patient moves all 4 extremities, and symmetrically. Strength evaluation of the lower extremities is limited somewhat by pain when he moves them, from the knees down both sides. Sensorium / Orientation: awake and alert Skin no rashes or lesions noted and no wounds General Skin Exam: jaundice MDM MDM MDM Narrative Medical decision making narrative: Work-up consistent with septic shock due to lactate over 4 (according to SIRS criteria), he is mildly hypotensive but keenly alert clinically. After the initial 500cc bolus of IV fluids, an additional 2 L were ordered to make his 30 cc/kg bolus. Antibiotics were ordered, plan is for admission to the hospital for what appears to be left lower lobe pneumonia. At this point he has not yet urinated for us, he has no symptoms of urinary retention and prefer to hold off on a catheter. At this time prior to initiating the additional 2 L of IV fluid as noted above, his blood pressure has come up some at 100/60. Troponin nonspecifically elevated in context of what is a normal EKG and no symptoms of angina, I suspect this is probably related to hypoxemia due to the pneumonia. On 2 L nasal cannula he is satting well into the 90s and is not dyspneic. He states he has not had a cough recently either. Since the infiltrates showed up on the x-ray done a week ago, and he has not been treated with antibiotics, I suspect that the procedure that he had 2 days ago did not cause the pneumonia. Lab Data Attestation: I reviewed the patient's lab results. Labs: Laboratory Results - last 24 hr 08/03/21 08/03/21 08/03/21 08:38 08:38 08:38 WBC 18.1 H RBC 3.99 L Hgb 15.1 Hct 42.2 MCV 105.8 H MCH 37.8 H MCHC 35.8 RDW Std Deviation 66.4 H RDW Coeff of Belinda 16.9 H Plt Count 61 L MPV 10.4 Immature Gran % (Auto) 1.400 H Neut % (Auto) 85.9 H Lymph % (Auto) 6.0 L Burke % (Auto) 5.8 Eos % (Auto) 0.3 Baso % (Auto) 0.6 Absolute Neuts (auto) 15.6 H Absolute Lymphs (auto) 1.09 Nucleated RBC % 0.1 Differential Comment Platelet Estimate MKD DEC RBC Morphology N CHROM Anisocytosis 1+ PT INR Sodium 134 L Potassium 5.0 Chloride 98 Carbon Dioxide 28.0 Anion Gap 8 BUN 39 H Creatinine 1.95 H Estim Creat Clear Calc 38.48 Est GFR (MDRD) Af Amer 44 L Est GFR (MDRD) Non-Af 37 L BUN/Creatinine Ratio 20.0 Glucose 120 H Lactic Acid Calcium 9.6 Total Bilirubin 13.90 H Direct Bilirubin 7.89 H AST 88 H ALT 110 H Alkaline Phosphatase 219 H Ammonia < 10.0 L Troponin I High Sens 265 H* Total Protein 5.6 L Albumin 1.7 L Globulin 3.9 Albumin/Globulin Ratio 0.4 L 08/03/21 08/03/21 08:38 08:38 WBC RBC Hgb Hct MCV MCH MCHC RDW Std Deviation RDW Coeff of Belinda Plt Count MPV Immature Gran % (Auto) Neut % (Auto) Lymph % (Auto) Burke % (Auto) Eos % (Auto) Baso % (Auto) Absolute Neuts (auto) Absolute Lymphs (auto) Nucleated RBC % Differential Comment Platelet Estimate RBC Morphology Anisocytosis PT 27.2 H INR 2.6 Sodium Potassium Chloride Carbon Dioxide Anion Gap BUN Creatinine Estim Creat Clear Calc Est GFR (MDRD) Af Amer Est GFR (MDRD) Non-Af BUN/Creatinine Ratio Glucose Lactic Acid 4.6 H* Calcium Total Bilirubin Direct Bilirubin AST ALT Alkaline Phosphatase Ammonia Troponin I High Sens Total Protein Albumin Globulin Albumin/Globulin Ratio Radiography Chest X-Ray - ED: 1 View, Read by ED Physician and Left Infiltrate Diagnostic Testing: Clinical Impression(s) from Imaging Studies Chest X-Ray 08/03/21 08:50 IMPRESSION: Progressive left lower lobe infiltrate with blunting of the left costophrenic angle. 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
[2021-08-03 08:50] LABS: Absolute Lymphocyte Count 1.09 X10^3/uL (0.83-4.51); Absolute Neutrophil Count 15.6 X10^3/uL (2.0-7.7); Basophil% 0.6 % (0-1); Eosinophil# 0.05 X10^3/uL; Eosinophils% 0.3 % (0-5); Hematocrit 42.2 % (40-54); Hemoglobin 15.1 g/dL (13.0-16.5); Lymphocyte # 1.09 X10^3/ul (0.83-4.51); Mean Corp Hgb Conc 35.8 g/dL (32-36); Mean Corpuscular Hgb 37.8 pg (27.0-32.0); Mean Corpuscular Volume 105.8 fL (80-94); Mean Platelet Vol. 10.4 fl (6.2-12.0); Monocyte# 1.05 X10^3/uL; Monocyte% 5.8 % (0-10); NRBC Flagged by Analyzer 0.1 % (0-5); Neutrophil % 85.9 % (47-70); POSITIVE COUNT YES; POSITIVE MORPHOLOGY YES; Platelet Count 61 K/mm3 (150-450); RBC Distribution Width CV 16.9 % (11.6-14.6); RBC Distribution Width SD 66.4 fl (35.1-43.9); Red Blood Count 3.99 M/mm3 (4.6-6.2); White Blood Count 18.1 K/mm3 (4.4-11.0)
--- NOTE | 2021-08-03 08:50 | RAD_ITS ---
STUDY: X-RAY CHEST REASON FOR EXAM: Male, 65 years old. Weakness. TECHNIQUE: Single AP portable view of the chest. COMPARISON: Comparison is made with prior study dated 07/27/2021. FINDINGS: EKG electrodes are seen. Since prior study, there is evidence of progressive infiltrate in the posterior medial segment of the left lower lobe. There is blunting of the left phrenic angle. Normal size heart. Normal mediastinum and jaylyn. Normal visualized pulmonary arteries. Normal visualized aortic arch and descending thoracic aorta. There are degenerative changes of the visualized thoracic spine. Normal visualized ribs, clavicles, and shoulders. There is no demonstrated abnormality of the visualized soft tissue structures of the upper abdomen. RAD/Chest 1 View (Portable) IMPRESSION: Progressive left lower lobe infiltrate with blunting of the left costophrenic angle. Electronically Signed: Andrzej Moncada MD at 9:14 EDT ,
[2021-08-03 08:55] LABS: Differential Indicated SCAN CRITERIA MET
[2021-08-03 08:59] LABS: International Normalized Ratio 2.6; Prothrombin Time (Protime)PT. 27.2 SECONDS (11.7-14.9)
[2021-08-03 09:26] LABS: ALB/GLOB Ratio 0.4 RATIO (0.9-2.4); AST(SGOT) 88 U/L (15-37); Alanine Aminotransfer ALT/SGPT 110 U/L (16-61); Albumin, Serum 1.7 g/dL (3.2-5.0); Alkaline Phosphatase 219 U/L (45-117); Anion Gap 8 (5-15); BUN 39 mg/dL (7-18); Bilirubin, Direct 7.89 mg/dL (0.00-0.30); Calcium,Total 9.6 mg/dL (8.5-10.1); Chloride 98 mmol/L (98-107); Creatinine, Serum 1.95 mg/dL (0.70-1.30); EST Glomerular Filtration Rate 37 mL/min (>60); Est Glom Filt Rate - Afr Amer 44 mL/min (>60); Estimated Creatinine Clearance 38.48 ml/min; Globulin 3.9 g/dL (2.2-4.2); Glucose 120 mg/dL (74-106); Protein, Total 5.6 g/dL (6.4-8.2); Sodium Level 134 mmol/L (136-145); Troponin-I HS 265 pg/mL (3.0-78.0)
[2021-08-03 09:28] LABS: Anisocytosis 1+; Platelet Estimate MKD DEC (ADEQ); Red Cell Morphology N CHROM NORMAL (NORM C&C)
[2021-08-03 09:32] LABS: Lactic Acid 4.6 mmol/L (0.4-1.9)
--- NOTE | 2021-08-03 09:32 | NURSING ---
Dr. Harris made aware lactic 4.6
[2021-08-03 09:56] LABS: Ammonia < 10.0 umol/L (11-32)
[2021-08-03] MEDS: 0.9% Normal Saline 1,000 ML 999 ML IV ×2 (09:57→11:56)
--- NOTE | 2021-08-03 10:03 | NURSING ---
DR AYALA FOR DR KEITH
--- NOTE | 2021-08-03 10:15 | NURSING ---
PCU LUCY SEPSIS, PNEUMONIA, HEMATURIA, AI, HYPOXIA, ALCOHOLIC CIRRHOSIS
--- NOTE | 2021-08-03 10:24 | NURSING ---
Addendum entered by Britney Ventura 08/03/21 10:25: 116 Original Note: 114
--- NOTE | 2021-08-03 10:36 | ED.RN ---
NOTIFIED OF LAST 2 CONSECUTIVE PRESSURES OF MAP <65. MD STATES TO CONTINUE FLUID BOLUS AND MONITOR. NO CHANGES IN LOC OF PATIENT.
--- NOTE | 2021-08-03 12:23 | HP.PCM.HOS_ITS ---
HPI - General General Date of Admission: 08/03/21 Date of Service: 08/03/21 Chief Complaint: weakness HPI Narrative LISSETT CASILLAS, is a 65 M who presents with weakness, confusion and shortness of breath. Presents to the emergency room as he was having pain in the leg just unable to get up. Patient presented to the emergency room where he was noted to be hypotensive and lactic acid was elevated 4.6. Patient received 30 cc/kg of IV fluids in the emergency room. Chest x-ray is concerning for pneumonia and patient did receive ceftriaxone and azithromycin in the emergency room. Patient had esophageal varices seal banding performed on and patient actually felt fine after going home that day but the following day, on the , patient just felt weak and was unable to get up. In the interim, patient not been eating or drinking much and just feeling to progress which is what led him to present to the hospital. He has been coughing which has been productive and short of breath. [facility] Medical History Alcohol dependence Anxiety Ascites Chewing tobacco use Cirrhosis ETOH abuse GI bleed Hepatitis History of ulceration Hyperbilirubinemia Hypertension Hyponatremia Hypophosphatemia Occasional tremors Poor historian Portal hypertension Shortness of breath on exertion Thrombocytopenia Home Medications lactulose 20 gram/30 mL oral solution 20 g PO BID #3000 ml 07/02/21 [Rx Last Taken Unknown] prednisone 10 mg tablet See Rx Instructions PO DAILY #60 tab 07/09/21 [Rx Last Taken 07/31/21] carvedilol 6.25 mg tablet 6.25 mg PO BID #60 tab 07/18/21 [Rx Last Taken 2] furosemide 40 mg tablet 40 mg PO DAILY #30 tab 07/18/21 [Rx Last Taken Unknown] pantoprazole 40 mg tablet,delayed release 40 mg PO BID #60 tab 07/18/21 [Rx Last Taken 07/31/21] spironolactone 50 mg tablet 50 mg PO DAILY #30 tab 07/18/21 [Rx Last Taken Unknown] sucralfate 100 mg/mL oral suspension 10 ml PO Q6H 28 Days #1120 ml 07/31/21 [Rx Last Taken Unknown] Allergy/AdvReac Type Severity Reaction Status Date / Time No Known Allergies Allergy Verified 08/03/21 08:09 Family History (Updated 08/03/21 @ 12:[address] Lj Christian DO) Father No cardiac disease Mother CAD (coronary artery disease) Uncle Cirrhosis Surgical History Hx of esophagogastroduodenoscopy Previous back surgery Social History (Updated 08/03/21 @ 12:[address] Lj Christian DO) household members: spouse current occupational status: retired Smoking Status: Smoker, status unknown tobacco type: smokeless tobacco Smokeless tobacco user: chewing tobacco alcohol intake: former year quit: 2021 ROS ROS Narrative Patient does have abdominal distention and did have a paracentesis back in May but has not required 1 since. Denies any lower extremity edema. Patient does have had tremors that has had for years but has gotten worse as of late. Does have periods where the tremor does get worse and better at times. Does have bruising and jaundice. All review of systems were negative except as mentioned above in the history of present illness and the other review of systems. Vital Signs Vital Signs Vital Signs: 08/03/21 08:06 08/03/21 08:27 08/03/21 08:46 Temperature 36.7 C Temperature Source Oral Pulse Rate 88 78 Respiratory Rate 18 20 H Respiratory Effort Respiratory Pattern Blood Pressure 85/59 L Blood Pressure Mean 67 Blood Pressure Source Blood Pressure Position Blood Pressure Location Pulse Ox 89 94 94 Oxygen Delivery Method Room Air Nasal Cannula Nasal Cannula Oxygen Flow Rate (L/min) 2 2 08/03/21 08:49 08/03/21 09:08 08/03/21 10:02 Temperature 37.1 C Temperature Source Oral Pulse Rate 81 89 Respiratory Rate 20 H 22 H Respiratory Effort Normal Non-Labored Respiratory Pattern Normal Blood Pressure 89/61 L 100/60 Blood Pressure Mean 70 73 Blood Pressure Source Blood Pressure Position Blood Pressure Location Pulse Ox 92 93 Oxygen Delivery Method Nasal Cannula Nasal Cannula Oxygen Flow Rate (L/min) 2 2 08/03/21 10:07 08/03/21 10:31 08/03/21 10:58 Temperature 37.2 C 36.9 C Temperature Source Oral Oral Pulse Rate 88 91 90 Respiratory Rate 18 17 17 Respiratory Effort Respiratory Pattern Blood Pressure 74/53 L 84/50 L 93/59 L Blood Pressure Mean 60 61 70 Blood Pressure Source Monitor Blood Pressure Position Semi-Fowlers Blood Pressure Location Right Arm Pulse Ox 93 93 94 Oxygen Delivery Method Nasal Cannula Nasal Cannula Nasal Cannula Oxygen Flow Rate (L/min) 2 2 3 08/03/21 11:21 Temperature Temperature Source Pulse Rate 89 Respiratory Rate Respiratory Effort Respiratory Pattern Blood Pressure Blood Pressure Mean Blood Pressure Source Blood Pressure Position Blood Pressure Location Pulse Ox Oxygen Delivery Method Oxygen Flow Rate (L/min) Weight Weight: 73.3 kg Body Mass Index (BMI) 23.1 Physical Exam Const alert and no apparent distress General Appearance: cooperative HEENT normocephalic, head/scalp atraumatic and moist oral mucous membranes Eyes Eyes Narrative: Icterus Neck no lymphadenopathy Resp normal respiratory effort, no retractions, no use of accessory muscles and clear to auscultation bilaterally Cardio regular rate, regular rhythm, S1 normal heart sound and S2 normal heart sound GI normal to inspection, nondistended, normoactive bowel sounds, soft to palpation, non-tender and non-distended Extremity normal to inspection and full ROM Skin Skin Narrative: Palmar erythema Neuro Neuro Narrative: Asterixis Sensorium / Orientation: awake and alert Psych affect normal Mood & Affect: depressed Results Lab / Micro Data Attestation: I reviewed the patient's lab results. Result Diagrams: 08/03/21 08:38 08/03/21 08:38 Labs: Laboratory Results - last 24 hr 08/03/21 08:38: Sodium 134 L, Potassium 5.0, Chloride 98, Carbon Dioxide 28.0, Anion Gap 8, BUN 39 H, Creatinine 1.95 H, Estim Creat Clear Calc 38.48, Est GFR (MDRD) Af Amer 44 L, Est GFR (MDRD) Non-Af 37 L, BUN/Creatinine Ratio 20.0, Glucose 120 H, Calcium 9.6, Total Bilirubin 13.90 H, Direct Bilirubin 7.89 H, AST 88 H, ALT 110 H, Alkaline Phosphatase 219 H, Troponin I High Sens 265 H*, Total Protein 5.6 L, Albumin 1.7 L, Globulin 3.9, Albumin/Globulin Ratio 0.4 L 08/03/21 08:38: Ammonia < 10.0 L 08/03/21 08:38: WBC 18.1 H, RBC 3.99 L, Hgb 15.1, Hct 42.2, MCV 105.8 H, MCH 37.8 H, MCHC 35.8, RDW Std Deviation 66.4 H, RDW Coeff of Belinda 16.9 H, Plt Count 61 L, MPV 10.4, Immature Gran % (Auto) 1.400 H, Neut % (Auto) 85.9 H, Lymph % (Auto) 6.0 L, Rice % (Auto) 5.8, Eos % (Auto) 0.3, Baso % (Auto) 0.6, Absolute Neuts (auto) 15.6 H, Absolute Lymphs (auto) 1.09, Nucleated RBC % 0.1, Differential Comment , Platelet Estimate MKD DEC, RBC Morphology N CHROM, Aniso cytosis 1+ 08/03/21 08:38: PT 27.2 H, INR 2.6 08/03/21 08:38: Lactic Acid 4.6 H* Radiology Impression Chest X-Ray 08/03/21 08:50 IMPRESSION: Progressive left lower lobe infiltrate with blunting of the left costophrenic angle. Electronically Signed: Andrzej Moncada MD at 9:14 EDT , Assessment & Plan Assessment/Plan (1) Elevated INR: (2) Acute alcoholic hepatitis: (3) Sepsis: QUALIFIERS: Sepsis type: sepsis due to unspecified organism Sepsis acute organ dysfunction status: with acute organ dysfunction Severe sepsis acute organ dysfunction type: acute renal failure Acute renal failure type: unspecified Severe sepsis shock status: without septic shock Qualified Code(s): A41.9 - Sepsis, unspecified organism; R65.20 - Severe sepsis without s eptic shock; N17.9 - Acute kidney failure, unspecified (4) Pneumonia: QUALIFIERS: Pneumonia type: due to unspecified organism Laterality: bilateral Lung location: lower lobe of lung Qualified Code(s): J18.9 - Pneumonia, unspecified organism (5) Elevated troponin: (6) ROLAND (acute kidney injury): PLAN: 1. Sepsis * Present on arrival * qSOFA of 2 * Septic shock ruled out patient responded well with IV fluids * Secondary to pneumonia * Follow-up infectious work-up 2. Pneumonia * Presumed pneumococcal * Continue with ceftriaxone azithromycin * Check urinary antigen Streptococcus Legionella 3. Acute kidney injury * Likely prerenal * Continue with IV fluids * Consider additional studies if no improvement or worsening. * Low suspicion for hepatorenal syndrome 4. Elevated troponins * Suspect due to demand, type II event * Patient not a candidate for aspirin or antiplatelet medications given his severe thrombocytopenia * Will check 2D echocardiogram and if gross abnormality may consider cardiology consultation. Patient is not a candidate for a cardiac catheterization given his multiple medical comorbidities. 5. Cirrhosis * Secondary to alcohol * Patient stopped drinking alcohol May 2021 * Patient had recent variceal banding performed by Dr. Babin. * No urgent needs for gastroenterology at this point in time so we will hold off on consulting. Patient made aware. Patient did request that Dr. Babin be made aware of the patient being hospitalized and will forward this note to Dr. Babin. 6. Thrombocytopenia * Secondary to cirrhosis and probable splenomegaly * Chronic 7. VTE prophylaxis * Hold chemical prophylaxis is contraindicated with thrombocytopenia * SCDs 8. CODE STATUS * Addressed with the patient. Patient wishes to be DNR Comfort Care arrest no intubation 9. COVID-19, unvaccinated * Patient denies any recent exposure to any with COVID-19 and that he himself denies ever having had COVID-19. * Patient at higher risk given his other underlying medical comorbidities for potential for severe infection from COVID-19. Charges/Coding Visit Charges Inpatient E&M: 32134 Init Hosp L3
--- NOTE | 2021-08-03 12:31 | ECHOCS_ITS ---
Reason For Study: Elevated Troponins Procedure This was a 2D Doppler, Color Flow transthoracic echocardiogram. The study was technically difficult. Contrast injection was performed. Second Tech needed to help hold patient on left side for Definity images. Exam performed portable in ICU/CCU. Left Ventricle Based upon the 2D echocardiographic and contrast enhanced images obtained there appears to be grossly normal left ventricular size, wall motion, and systolic function. The estimated ejection fraction is 70 %. Diastolic function is indeterminate. Right Ventricle Based upon the 2D echocardiographic images obtained there appears to be grossly normal right ventricular size and systolic function. Atria Normal left atrium. Normal right atrium. No doppler evidence for ASD. Mitral Valve There is no mitral annular calcification. Normal mitral valve. Trivial mitral valve insufficiency. Tricuspid Valve Normal tricuspid valve. Trivial tricuspid valve insufficiency. Unable to estimate RV systolic pressure/pulmonary artery pressure due to technically difficult study. Aortic Valve The aortic valve is not well visualized. Pulmonic Valve The pulmonic valve is not well visualized. Great Vessels The aortic root was not well visualized. Pericardium/Pleural No pericardial effusion. Echolucency compatible with a pleural effusion. Medication Diluted definity 3ml given slow IV push to enhance endocardial definition. MMode/2D Measurements & Calculations LVIDd: 4.3 cm IVSd: 1.00 cm LA dimension: 2.9 cm LVIDs: 2.9 cm LVPWd: 1.3 cm FS: 31.2 % Time Measurements MV dec time: 0.26 sec Doppler Measurements & Calculations MV E max chandrakant: 52.1 cm/sec Lat Peak E' Chandrakant: 6.8 cm/sec Med Peak E' Chandrakant: 6.9 cm/sec MV A max chandrakant: 67.6 cm/sec E/E' lat: 7.7 E/E' med: 7.5 MV E/A: 0.77 PA V2 max: 88.6 cm/sec ECHO/Echo Complete W/ Contrast Interpretation Summary The study was technically difficult. Contrast injection was performed. Based upon the 2D echocardiographic and contrast enhanced images obtained there appears to be grossly normal left ventricular size, wall motion, and systolic function. The estimated ejection fraction is 70 %. Trivial mitral valve insufficiency. Trivial tricuspid valve insufficiency. Echolucency compatible with a pleural effusion. Unable to estimate RV systolic pressure/pulmonary artery pressure due to techni ernst difficult study. Diastolic function is indeterminate. Ordering Physician: Lj Christian Referring Physician: Julio Underwood Performed By: Misbah Garcia RCS
[2021-08-03] MEDS: 0.9% Normal Saline 1,000 ML 150 ML IV (12:40)
[2021-08-03 12:45] LABS: Reflex Lactate? Y
--- NOTE | 2021-08-03 13:06 | NURSING ---
Pt's 2L of IV fluids per sepsis protocol was started in ED. Times of MAR are incorrect; Second bag started at 1100 when patient arrived to the unit and finished at 1200.
[2021-08-03 13:20] LABS: Lactic Acid 4.8 mmol/L (0.4-1.9)
--- NOTE | 2021-08-03 13:59 | NURSING ---
in to see patient plan for transfer to icu called supervisor shipping room awaiting bed
--- NOTE | 2021-08-03 14:00 | CASEMGMT ---
KILEY FRANCIS Face to Face with patient for initial transition planning/care coordination assessment. RN CM introduced self and role at [facility]. Patient lying in bed, alert and oriented. Patient willing to participate in assessment and is able to answer all questions appropriately. Care providers, pharmacy, and demographics verified. Patient wishes to discharge home, will monitor for need for HHC at discharge. Patient states he has no further needs or concerns at this time. CM to follow for discharge planning needs that may arise. PCP: Kj Specialists: Friend, VARSHA Preferred Pharmacy: [facility] Insurance: [employer] [facility] Prescription Benefit: yes Living Will/HPOA: none LNOK: , daughter Living Arrangements: Patient lives with in a 2 story home with bed and bath on first floor. 1 step to enter the home. Patient states he was independent at home with providing assistance at time Transportation: DME/HHC: patient states he has cane and grab bars at home. Will monitor for walker and home oxygen at discharge. No preferences for DME. Disposition Plan: Patient to discharge home with family support and follow-up plans in place. Will monitor for HHC at discharge pending therapy. Bryanna PARIKH, RN, CM
--- NOTE | 2021-08-03 14:13 | NURSING ---
Report called to INSPECTOR SALVAGEKILEY Garcia.
--- NOTE | 2021-08-03 14:17 | NURSING ---
This RN called Pt's , Pat, and informed her that pt is being sent up to ICU to room 201.
--- NOTE | 2021-08-03 14:27 | NURSING ---
took patient to icu
[2021-08-03] MEDS: 0.9% Saline Lock 10 ML Syringe IV ×2 (14:40→18:38)
[2021-08-03] MEDS: Hydrocortisone Sod Succinate 100 MG/2 ML Vial IV (14:53)
--- NOTE | 2021-08-03 15:00 | CON.PCM.CC_ITS ---
Assessment & Plan Assessment/Plan (1) Sepsis: QUALIFIERS: Sepsis type: sepsis due to unspecified organism Sepsis acute organ dysfunction status: with acute organ dysfunction Severe sepsis acute organ dysfunction type: acute renal failure Acute renal failure type: unspecified Severe sepsis shock status: without septic shock Qualified Code(s): A41.9 - Sepsis, unspecified organism; R65.20 - Severe sepsis without septic shock; N17.9 - Acute kidney failure, unspecified (2) Cirrhosis: (3) Elevated INR: (4) Esophageal varices in cirrhosis: (5) Portal hypertension: PLAN: RECOMMENDATIONS: 1. Attempts of vitamin K supplementation 2. Place PICC line for possible pressors 3. Obtain panculture 4. Continue empiric antibiotics 5. BiPAP rescue if necessary overnight. No intubation. IMPRESSIONS: 1. Sepsis secondary to possible left lower lobe pneumonia Patient does appear to have a possible infiltrate in the left lower lobe. Repeat chest x-ray following volume resuscitation may be more helpful. Patient would be at risk for SBP given recent banding. Ceftriaxone and azithromycin should be appropriate. Pancultures will be ordered. Patient will have a lower blood pressure secondary to oncotic issues associated with cirrhosis. Agree with placement of PICC line. Patient may require pressor therapy overnight, especially gram-negative's are noted. Patient did have significant collapse of the IVC and jugular veins with inhalation indicating low intravascular pressures. 2. Coagulopathy/thrombocytopenia/esophageal varices/portal hypertension secondary to cirrhosis Patient with recent GI banding. Patient stopped drinking in May 2021. No concerns for withdrawal at this time. Patient has not had any significant bleeding. Unclear if urethral bleeding is secondary to trauma. Patient will have a Parker placed. We will hold on irrigation at this time. Despite coagulopathy, hemoglobin is normal. We will hold off on any serial H&H's. 3. Acute kidney injury Clinical suspicion for prerenal etiology secondary to problem #1. Continue with IV fluids. Renal function was adequate previously, so hepatorenal syndrome is not highly suspected at this time. We will continue to monitor closely. Hyperkalemia likely secondary to acidosis related to problem #1. We will continue to address vascular status. Telemetry will be continued. 4. Elevated troponin/recent intervention/history of alcoholism Complicates care, management, recovery and prognosis. Clinical suspicion for supply demand mismatch for elevated troponin. Echocardiogram is currently pending. HPI Consult Data Date of Consult: 08/03/21 HPI Narrative HPI Narrative: LISSETT CASILLAS is a 65 M, with past medical history listed below, who presents to [facility] on 08/03/2021 secondary to progressive weakness and generalized achiness. Patient has a long history of hepatic cirrhosis with complications such as esophageal varices that were recently banded. Patient reported no hematemesis prior to this procedure. Patient denies any hematochezia or hematemesis. Patient reportedly has noted some blood at his urethral meatus that started overnight. Patient has not had any recent falls or injury. Patient does report a poor appetite and some soreness with swallowing. Patient does not believe that he is any more confused and has been compliant with his lactulose. Patient is not on any anticoagulation at this time. Patient is not reporting an abdominal pain. In the ER, patient was afebrile, but saturating 89% on room air. Patient's blood pressures were marginal 85/59. Laboratory work-up showed a white blood cell count of 18.1, hemoglobin of 15.1 and a platelet count of 61. Chemistries were obtained showing a potassium of 5, BUN of 39 and creatinine of 1.95. Total bili is elevated at 14 with a direct of 7.9. Ammonia was within normal limits. Troponin was slightly elevated. INR was elevated at 2.6. Patient's lactate was elevated. Chest x-ray showed a left lower lobe infiltrate. Patient did receive Rocephin, azithromycin and 30 cc/kg IV fluids. Patient arrived to the intensive care unit on nasal cannula oxygen. Patient states that he felt relatively improved from presentation. Patient reports global weakness, but is not reporting any abdominal pain. Patient does report hematuria without dysuria. Patient does not report any urethral trauma. Review of systems otherwise negative from a constitutional, HEENT, respiratory, cardiovascular, GI, genitourinary, musculoskeletal, skin, neurologic, psychiatric and hematologic system unless stated above. [facility] Medical History (Updated 08/03/21 @ 15:[address] Kunal Prince MD) Alcohol dependence Anxiety Ascites Chewing tobacco use Cirrhosis ETOH abuse GI bleed Hepatitis History of ulceration Hyperbilirubinemia Hypertension Hyponatremia Hypophosphatemia Occasional tremors Poor historian Portal hypertension Shortness of breath on exertion Thrombocytopenia Home Medications lactulose 20 gram/30 mL oral solution 20 g PO BID #3000 ml 07/02/21 [Rx Last Taken Unknown] prednisone 10 mg tablet See Rx Instructions PO DAILY #60 tab 07/09/21 [Rx Last Taken 07/31/21] carvedilol 6.25 mg tablet 6.25 mg PO BID #60 tab 07/18/21 [Rx Last Taken 07/31/21] furosemide 40 mg tablet 40 mg PO DAILY #30 tab 07/18/21 [Rx Last Taken Unknown] pantoprazole 40 mg tablet,delayed release 40 mg PO BID #60 tab 07/18/21 [Rx Last Taken 07/31/21] spironolactone 50 mg tablet 50 mg PO DAILY #30 tab 07/18/21 [Rx Last Taken Unkno wn] sucralfate 100 mg/mL oral suspension 10 ml PO Q6H 28 Days #1120 ml 07/31/21 [Rx Last Taken Unknown] Allergy/AdvReac Type Severity Reaction Status Date / Time No Known Allergies Allergy Verified 08/03/21 08:09 Family History Father No cardiac disease Mother CAD (coronary artery disease) Uncle Cirrhosis Surgical History Hx of esophagogastroduodenoscopy Previous back surgery Social History household members: spouse current occupational status: retired Smoking Status: Smoker, status unknown tobacco type: smokeless tobacco Smokeless tobacco user: chewing tobacco alcohol intake: former year quit: 2021 ROS ROS Narrative See HPI Physical Exam Const alert and no apparent distress General Appearance: cooperative HEENT normocephalic, head/scalp atraumatic and moist oral mucous membranes Eyes Eyes Narrative: Glasses in place Sclera: sclera abnormal Positive for bilateral (Icterus) Neck no lymphadenopathy Resp normal respiratory effort, no retractions, no use of accessory muscles and clear to auscultation bilaterally Cardio regular rate, regular rhythm, S1 normal heart sound and S2 normal heart sound GI soft to palpation and non-tender GI Narrative: Slightly distended abdomen. No rebound or guarding noted Extremity normal to inspection and full ROM Skin Skin Narrative: Palmar erythema Neuro Neuro Narrative: Asterixis Sensorium / Orientation: awake and alert Psych affect normal Mood & Affect: depressed Lab / Micro Data Result Diagrams: 08/03/21 08:38 08/03/21 08:38 Labs: Laboratory Results - last 24 hr 08/03/21 08:38: Sodium 134 L, Potassium 5.0, Chloride 98, Carbon Dioxide 28.0, Anion Gap 8, BUN 39 H, Creatinine 1.95 H, Estim Creat Clear Calc 38.48, Est GFR (MDRD) Af Amer 44 L, Est GFR (MDRD) Non-Af 37 L, BUN/Creatinine Ratio 20.0, Glucose 120 H, Calcium 9.6, Total Bilirubin 13.90 H, Direct Bilirubin 7.89 H, AST 88 H, ALT 110 H, Alkaline Phosphatase 219 H, Troponin I High Sens 265 H*, Total Protein 5.6 L, Albumin 1.7 L, Globulin 3.9, Albumin/Globulin Ratio 0.4 L 08/03/21 08:38: Ammonia < 10.0 L 08/03/21 08:38: WBC 18.1 H, RBC 3.99 L, Hgb 15.1, Hct 42.2, MCV 105.8 H, MCH 37.8 H, MCHC 35.8, RDW Std Deviation 66.4 H, RDW Coeff of Belinda 16.9 H, Plt Count 61 L, MPV 10.4, Immature Gran % (Auto) 1.400 H, Neut % (Auto) 85.9 H, Lymph % (Auto) 6.0 L, [place] % (Auto) 5.8, Eos % (Auto) 0.3, Baso % (Auto) 0.6, Absolute Neuts (auto) 15.6 H, Absolute Lymphs (auto) 1.09, Nucleated RBC % 0.1, Differential Comment , Platelet Estimate MKD DEC, RBC Morphology N CHROM, Anisocytosis 1+ 08/03/21 08:38: PT 27.2 H, INR 2.6 08/03/21 08:38: Lactic Acid 4.6 H* 08/03/21 12:43: Lactic Acid 4.8 H* Radiology Impression Chest X-Ray 08/03/21 08:50 IMPRESSION: Progressive left lower lobe infiltrate with blunting of the left costophrenic angle. Electronically Signed: Andrzej Moncada MD at 9:14 EDT , Charges/Coding Visit Charges Inpatient E&M: 72485 Init Hosp L3
[2021-08-03 16:11] LABS: Mucous, Urine 0 SEEN /hpf (<or=2+); Squamous Epithelial Cells - UA 0 SEEN /hpf (0-5)
[2021-08-03 16:22] LABS: Glucose, Dipstick Normal (Normal); Ketone-Dipstick 5 mg/dl (Negative); Leukocyte Esterase-Dipstick 100 /ul (Negative); Nitrite-Dipstick Negative (Negative); Occult Blood-Urine 150 /ul (Negative); Protein-Dipstick 30 mg/dl (Negative); Urine Urobilinogen 1 mg/dl (Normal)
[2021-08-03] MEDS: Sucralfate 1 GM Tablet PO ×2 (16:41→22:37)
[2021-08-03 16:47] LABS: Color, Urine Amber (Yellow); Urine Bilirubin Dipstick 3 mg/dL (Negative); Urine Clarity Sl Cldy (Clear)
[2021-08-03 16:50] LABS: Bacteria 2+ /hpf (None Seen); Red Blood Cells-Urine 0-5 SEEN /hpf (0-5); White Blood Cells 5-10 SEEN /hpf (0-5)
[2021-08-03 16:50] LABS: Reflex Lactate? Y
[2021-08-03] MEDS: Lactulose 20 GM/30 ML UDC PO (22:37)
[2021-08-03] MEDS: Pantoprazole Sodium 40 MG Tablet PO (22:37)
[2021-08-04] VITALS (52 sets, daily range): BP systolic 64–138; BP diastolic 52–111; PULSE 87–131; RESP 15–21; TEMP 36.1–36.9; O2SAT 86–97
[2021-08-04] MEDS: TITRATION PARAMETER CHANGE 1 EACH IV (00:25)
[2021-08-04] MEDS: Hydrocortisone Sod Succinate 100 MG/2 ML Vial 50 MG IV ×5 (00:25→22:46)
[2021-08-04 04:38] LABS: Absolute Lymphocyte Count 1.27 X10^3/uL (0.83-4.51); Absolute Neutrophil Count 17.2 X10^3/uL (2.0-7.7); Basophil# 0.12 X10^3/uL; Basophil% 0.6 % (0-1); Eosinophil# 0.05 X10^3/uL; Eosinophils% 0.3 % (0-5); Hematocrit 40.3 % (40-54); Hemoglobin 14.4 g/dL (13.0-16.5); Lymphocyte # 1.27 X10^3/ul (0.83-4.51); Lymphocyte % 6.4 % (19-41); Mean Corp Hgb Conc 35.7 g/dL (32-36); Mean Corpuscular Volume 106.3 fL (80-94); Mean Platelet Vol. 11.4 fl (6.2-12.0); Monocyte% 4.6 % (0-10); NRBC Flagged by Analyzer 0.1 % (0-5); Neutrophil # 17.22 X10^3/uL (2.7-7.7); Neutrophil % 87.3 % (47-70); POSITIVE COUNT YES; POSITIVE MORPHOLOGY YES; Platelet Count 66 K/mm3 (150-450); RBC Distribution Width CV 16.7 % (11.6-14.6); RBC Distribution Width SD 65.1 fl (35.1-43.9); Red Blood Count 3.79 M/mm3 (4.6-6.2); White Blood Count 19.7 K/mm3 (4.4-11.0)
[2021-08-04 04:39] LABS: Differential Indicated SCAN CRITERIA MET
[2021-08-04 04:45] LABS: International Normalized Ratio 2.9; Prothrombin Time (Protime)PT. 29.7 SECONDS (11.7-14.9)
[2021-08-04 04:53] LABS: ALB/GLOB Ratio 0.4 RATIO (0.9-2.4); AST(SGOT) 102 U/L (15-37); Alanine Aminotransfer ALT/SGPT 112 U/L (16-61); Albumin, Serum 1.4 g/dL (3.2-5.0); Alkaline Phosphatase 206 U/L (45-117); Anion Gap 3 (5-15); BUN 47 mg/dL (7-18); BUN/Creat Ratio 26.6 RATIO (10-20); Chloride 104 mmol/L (98-107); Creatinine, Serum 1.77 mg/dL (0.70-1.30); EST Glomerular Filtration Rate 41 mL/min (>60); Est Glom Filt Rate - Afr Amer 50 mL/min (>60); Estimated Creatinine Clearance 42.39 ml/min; Globulin 3.5 g/dL (2.2-4.2); Glucose 166 mg/dL (74-106); Protein, Total 4.9 g/dL (6.4-8.2); Sodium Level 135 mmol/L (136-145)
[2021-08-04 05:21] LABS: Anisocytosis 1+; Differential Comment SCANNED; Macrocytosis 1+; Pathologist Review May foll; Platelet Estimate MOD DEC (ADEQ); Vacuolated Cells 1+
[2021-08-04] MEDS: Sucralfate 1 GM Tablet PO ×4 (06:38→22:46)
--- NOTE | 2021-08-04 06:47 | PCM.PN.INT ---
Assessment & Plan Assessment/Plan (1) Sepsis: QUALIFIERS: Sepsis type: sepsis due to unspecified organism Sepsis acute organ dysfunction status: with acute organ dysfunction Severe sepsis acute organ dysfunction type: acute renal failure Acute renal failure type: unspecified Severe sepsis shock status: without septic shock Qualified Code(s): A41.9 - Sepsis, unspecified organism; R65.20 - Severe sepsis without septic shock; N17.9 - Acute kidney failure, unspecified (2) Cirrhosis: (3) Elevated INR: (4) Esophageal varices in cirrhosis: (5) Portal hypertension: PLAN: RECOMMENDATIONS: 1. Wean Levophed as tolerated 2. Initiate vancomycin given staff aureus 3. Wean supplemental oxygen as tolerated 4. Continue empiric antibiotics 5. BiPAP rescue if necessary overnight. No intubation. IMPRESSIONS: 1. Septic shock secondary to possible left lower lobe pneumonia Patient does appear to have a possible infiltrate in the left lower lobe. Repeat chest x-ray following volume resuscitation may be more helpful. Patient would be at risk for SBP given recent banding. Ceftriaxone and azithromycin should be appropriate. Pancultures pending. Patient will have a lower blood pressure secondary to oncotic issues associated with cirrhosis. Wean pressors as tolerated 2. Coagulopathy/thrombocytopenia/esophageal varices/portal hypertension secondary to cirrhosis Patient with recent GI banding. Patient stopped drinking in May 2021. No concerns for withdrawal at this time. Patient has not had any significant bleeding. Unclear if urethral bleeding is secondary to trauma. No significant hematuria but noted with Parker. We will hold on irrigation at this time. Despite coagulopathy, hemoglobin is normal. We will hold off on any serial H&H's. 3. Acute kidney injury Slightly improved. Clinical suspicion for prerenal etiology secondary to problem #1. Continue with IV fluids. Renal function was adequate previously, so hepatorenal syndrome is not highly suspected at this time. We will continue to monitor closely. Hyperkalemia likely secondary to acidosis related to problem #1. We will continue to address vascular status. Telemetry will be continued. 4. Acute hypoxic respiratory failure secondary to probable left lower lobe pneumonia Patient requiring significant supplemental oxygen. Initial chest x-ray did show some infiltrate in the left lower lobe. Will obtain a repeat chest x-ray to see if infiltrate is more noticeable. 5. Elevated troponin/recent intervention/history of alcoholism Complicates care, management, recovery and prognosis. Clinical suspicion for supply demand mismatch for elevated troponin. Echocardiogram is currently pending. TIME: 32 minutes critical care time spent addressing patient's septic shock, acute hypoxic respiratory failure, acute kidney injury, coagulopathy, review of all data and collaboration with care team Subjective Subjective The patient did okay overnight. The patient did have a PIC line placed yesterday evening without complications. Patient did have to be placed on Levophed overnight secondary to hypotension. Patient has tolerated this well. Overnight, patient has tested positive for staph aureus in multiple blood culture bottles. No significant nausea, vomiting or abdominal pain has been reported. Objective Data Objective Data Vital Signs: Vital Signs Temp Pulse Resp BP Pulse Ox 36.4 C L 94 18 98/68 96 08/04/21 06:00 08/04/21 06:00 08/04/21 06:00 08/04/21 06:00 08/04/21 06:00 Oxygen Flow Rate (L/min) 8 Oxygen Delivery Method High Flow Weight: 76.3 kg Body Mass Index (BMI) 23.1 Intake & Output: Intake and Output for Last 24 Hours 08/02/21 08/03/21 08/04/21 23:59 23:59 23:59 Intake Total 4013.57 / 4141.07 160.65 / 160.65 Output Total 420 / 870 850 / 850 Balance 3593.57 / 3271.07 -689.35 / -689.35 Lab / Micro Data Result Diagrams: 08/04/21 04:27 08/04/21 04:27 Labs: Laboratory Results - last 24 hr 08/03/21 08:38: Sodium 134 L, Potassium 5.0, Chloride 98, Carbon Dioxide 28.0, Anion Gap 8, BUN 39 H, Creatinine 1.95 H, Estim Creat Clear Calc 38.48, Est GFR (MDRD) Af Amer 44 L, Est GFR (MDRD) Non-Af 37 L, BUN/Creatinine Ratio 20.0, Glucose 120 H, Calcium 9.6, Total Bilirubin 13.90 H, Direct Bilirubin 7.89 H, AST 88 H, ALT 110 H, Alkaline Phosphatase 219 H, Troponin I High Sens 265 H*, Total Protein 5.6 L, Albumin 1.7 L, Globulin 3.9, Albumin/Globulin Ratio 0.4 L 08/03/21 08:38: Ammonia < 10.0 L 08/03/21 08:38: WBC 18.1 H, RBC 3.99 L, Hgb 15.1, Hct 42.2, MCV 105.8 H, MCH 37.8 H, MCHC 35.8, RDW Std Deviation 66.4 H, RDW Coeff of Belinda 16.9 H, Plt Count 61 L, MPV 10.4, Immature Gran % (Auto) 1.400 H, Neut % (Auto) 85.9 H, Lymph % (Auto) 6.0 L, [place] % (Auto) 5.8, Eos % (Auto) 0.3, Baso % (Auto) 0.6, Absolute Neuts (auto) 15.6 H, Absolute Lymphs (auto) 1.09, Nucleated RBC % 0.1, Differential Comment , Platelet Estimate MKD DEC, RBC Morphology N CHROM, Anisocytosis 1+ 08/03/21 08:38: PT 27.2 H, INR 2.6 08/03/21 08:38: Lactic Acid 4.6 H* 08/03/21 12:43: Lactic Acid 4.8 H* 08/03/21 16:00: Urine Color Melania, Urine Clarity Sl Cldy, Urine pH 6.0, Ur Specific [place] 1.020, Urine Protein 30 H, Urine Glucose (UA) Normal, Urine Ketones 5 H, Urine Occult Blood 150 H, Urine Nitrite Negative, Urine Bilirubin 3 H, Urine Urobilinogen 1 H, Ur Leukocyte Esterase 100 H, Urine RBC 0-5 SEEN, Urine WBC 5-10 SEEN, Ur Squamous Epith Cells 0 SEEN, Urine Bacteria 2+, Urine Mucus 0 SEEN 08/04/21 04:27: WBC 19.7 H, RBC 3.79 L, Hgb 14.4, Hct 40.3, MCV 106.3 H, MCH 38.0 H, MCHC 35.7, RDW Std Deviation 65.1 H, RDW Coeff of Belinda 16.7 H, Plt Count 66 L, MPV 11.4, Immature Gran % (Auto) 0.800, Neut % (Auto) 87.3 H, Lymph % (Auto) 6.4 L, [place] % (Auto) 4.6, Eos % (Auto) 0.3, Baso % (Auto) 0.6, Absolute Neuts (auto) 17.2 H, Absolute Lymphs (auto) 1.27, Nucleated RBC % 0.1, Differential Comment SCANNED, Diff Path Review May foll, Toxic Vacuolation 1+, Platelet Estimate MOD DEC, Anisocytosis 1+, Macrocytosis 1+ 08/04/21 04:27: PT 29.7 H, INR 2.9 08/04/21 04:27: Sodium 135 L, Potassium 5.0, Chloride 104, Carbon Dioxide 28.0, Anion Gap 3 L, BUN 47 H, Creatinine 1.77 H, Estim Creat Clear Calc 42.39, Est GFR (MDRD) Af Amer 50 L, Est GFR (MDRD) Non-Af 41 L, BUN/Creatinine Ratio 26.6 H, Glucose 166 H, Calcium 9.0, Total Bilirubin 13.50 H, AST 102 H, ALT 112 H, Alkaline Phosphatase 206 H, Total Protein 4.9 L, Albumin 1.4 L, Globulin 3.5, Albumin/Globulin Ratio 0.4 L Micro: Microbiology 08/03/21 08:04 Blood Culture (Wb) - Anticubital Right Blood Culture - Final Staphylococcus aureus 08/03/21 08:38 Blood Culture (Wb) - Anticubital Left Bacteria Detection (PCR) - Final Staphylococcus aureus 08/03/21 08:38 Blood Culture (Wb) - Anticubital Left Blood Culture - Preliminary Staphylococcus aureus 08/03/21 16:00 Urine Catheter - Parker Legionella Antigen - Final 08/03/21 16:00 Urine Catheter - Parker Streptococcus pneumoniae Antigen (M - Final Radiography Diagnostic Testing: Radiology Impression Chest X-Ray 08/03/21 08:50 IMPRESSION: Progressive left lower lobe infiltrate with blunting of the left costophrenic angle. Electronically Signed: Andrzej Moncada MD at 9:14 EDT , Echocardiogram 08/03/21 12:31 Interpretation Summary The study was technically difficult. Contrast injection was performed. Based upon the 2D echocardiographic and contrast enhanced images obtained there appears to be grossly normal left ventricular size, wall motion, and systolic function. The estimated ejection fraction is 70 %. Trivial mitral valve insufficiency. Trivial tricuspid valve insufficiency. Echolucency compatible with a pleural effusion. Unable to estimate RV systolic pressure/pulmonary artery pressure due to technically difficult study. Diastolic function is indeterminate. Ordering Physician: Lj Christian Referring Physician: Julio Underwood Performed By: Misbah Garcia RCS Physical Exam Const alert and no apparent distress Constitutional Narrative: Significant jaundice General Appearance: cooperative HEENT normocephalic, head/scalp atraumatic and moist oral mucous membranes Eyes Eyes Narrative: Glasses in place Sclera: sclera abnormal Positive for bilateral (Icterus) Neck no lymphadenopathy Resp normal respiratory effort, no retractions, no use of accessory muscles and clear to auscultation bilaterally Cardio regular rate, regular rhythm, S1 normal heart sound and S2 normal heart sound GI soft to palpation and non-tender GI Narrative: Slightly distended abdomen. No rebound or guarding noted Extremity normal to inspection and full ROM Skin Skin Narrative: Palmar erythema Neuro Neuro Narrative: Asterixis Sensorium / Orientation: awake and alert Psych affect normal Mood & Affect: depressed Charges/Coding Procedures Hospitalists Procedures: 47192 Critial Care 1st Hr
--- NOTE | 2021-08-04 07:02 | PN.HOSP_ITS ---
Subjective Subjective Developed aflutter today. Objective Data Objective Data Vital Signs: Vital Signs Temp Pulse Resp BP Pulse Ox 36.4 C L 94 18 97/74 96 08/04/21 06:00 08/04/21 06:00 08/04/21 06:00 08/04/21 06:45 08/04/21 06:00 Oxygen Flow Rate (L/min) 8 Oxygen Delivery Method High Flow Weight: 76.3 kg Body Mass Index (BMI) 23.1 Intake & Output: Intake and Output for Last 24 Hours 08/02/21 08/03/21 08/04/21 23:59 23:59 23:59 Intake Total 4013.57 / 4141.07 163.50 / 163.50 Output Total 420 / 870 850 / 850 Balance 3593.57 / 3271.07 -686.50 / -686.50 Lab / Micro Data Result Diagrams: 08/04/21 04:27 08/04/21 04:27 Labs: Laboratory Results - last 24 hr 08/03/21 08:38: Sodium 134 L, Potassium 5.0, Chloride 98, Carbon Dioxide 28.0, Anion Gap 8, BUN 39 H, Creatinine 1.95 H, Estim Creat Clear Calc 38.48, Est GFR (MDRD) Af Amer 44 L, Est GFR (MDRD) Non-Af 37 L, BUN/Creatinine Ratio 20.0, Glucose 120 H, Calcium 9.6, Total Bilirubin 13.90 H, Direct Bilirubin 7.89 H, AST 88 H, ALT 110 H, Alkaline Phosphatase 219 H, Troponin I High Sens 265 H*, Total Protein 5.6 L, Albumin 1.7 L, Globulin 3.9, Albumin/Globulin Ratio 0.4 L 08/03/21 08:38: Ammonia < 10.0 L 08/03/21 08:38: WBC 18.1 H, RBC 3.99 L, Hgb 15.1, Hct 42.2, MCV 105.8 H, MCH 37.8 H, MCHC 35.8, RDW Std Deviation 66.4 H, RDW Coeff of Belinda 16.9 H, Plt Count 61 L, MPV 10.4, Immature Gran % (Auto) 1.400 H, Neut % (Auto) 85.9 H, Lymph % (Auto) 6.0 L, [place] % (Auto) 5.8, Eos % (Auto) 0.3, Baso % (Auto) 0.6, Absolute Neuts (auto) 15.6 H, Absolute Lymphs (auto) 1.09, Nucleated RBC % 0.1, Differential Comment , Platelet Estimate MKD DEC, RBC Morphology N CHROM, Anisocytosis 1+ 08/03/21 08:38: PT 27.2 H, INR 2.6 08/03/21 08:38: Lactic Acid 4.6 H* 08/03/21 12:43: Lactic Acid 4.8 H* 08/03/21 16:00: Urine Color Melania, Urine Clarity Sl Cldy, Urine pH 6.0, Ur Specific [place] 1.020, Urine Protein 30 H, Urine Glucose (UA) Normal, Urine Ketones 5 H, Urine Occult Blood 150 H, Urine Nitrite Negative, Urine Bilirubin 3 H, Urine Urobilinogen 1 H, Ur Leukocyte Esterase 100 H, Urine RBC 0-5 SEEN, Urine WBC 5-10 SEEN, Ur Squamous Epith Cells 0 SEEN, Urine Bacteria 2+, Urine Mucus 0 SEEN 08/04/21 04:27: WBC 19.7 H, RBC 3.79 L, Hgb 14.4, Hct 40.3, MCV 106.3 H, MCH 38.0 H, MCHC 35.7, RDW Std Deviation 65.1 H, RDW Coeff of Belinda 16.7 H, Plt Count 66 L, MPV 11.4, Immature Gran % (Auto) 0.800, Neut % (Auto) 87.3 H, Lymph % (Auto) 6.4 L, [place] % (Auto) 4.6, Eos % (Auto) 0.3, Baso % (Auto) 0.6, Absolute Neuts (auto) 17.2 H, Absolute Lymphs (auto) 1.27, Nucleated RBC % 0.1, Differential Comment SCANNED, Diff Path Review May foll, Toxic Vacuolation 1+, Platelet Estimate MOD DEC, Anisocytosis 1+, Macrocytosis 1+ 08/04/21 04:27: PT 29.7 H, INR 2.9 08/04/21 04:27: Sodium 135 L, Potassium 5.0, Chloride 104, Carbon Dioxide 28.0, Anion Gap 3 L, BUN 47 H, Creatinine 1.77 H, Estim Creat Clear Calc 42.39, Est GFR (MDRD) Af Amer 50 L, Est GFR (MDRD) Non-Af 41 L, BUN/Creatinine Ratio 26.6 H , Glucose 166 H, Calcium 9.0, Total Bilirubin 13.50 H, AST 102 H, ALT 112 H, Alkaline Phosphatase 206 H, Total Protein 4.9 L, Albumin 1.4 L, Globulin 3.5, Albumin/Globulin Ratio 0.4 L Micro: Microbiology 08/03/21 08:04 Blood Culture (Wb) - Anticubital Right Blood Culture - Final Staphylococcus aureus 08/03/21 08:38 Blood Culture (Wb) - Anticubital Left Bacteria Detection (PCR) - Final Staphylococcus aureus 08/03/21 08:38 Blood Culture (Wb) - Anticubital Left Blood Culture - Preliminary Staphylococcus aureus 08/03/21 16:00 Urine Catheter - Parker Legionella Antigen - Final 08/03/21 16:00 Urine Catheter - Parker Streptococcus pneumoniae Antigen (M - Final Radiography Diagnostic Testing: Radiology Impression Chest X-Ray 08/03/21 08:50 IMPRESSION: Progressive left lower lobe infiltrate with blunting of the left costophrenic angle. Electronically Signed: Andrzej Moncada MD at 9:14 EDT , Echocardiogram 08/03/21 12:31 Interpretation Summary The study was technically difficult. Contrast injection was performed. Based upon the 2D echocardiographic and contrast enhanced images obtained there appears to be grossly normal left ventricular size, wall motion, and systolic function. The estimated ejection fraction is 70 %. Trivial mitral valve insufficiency. Trivial tricuspid valve insufficiency. Echolucency compatible with a pleural effusion. Unable to estimate RV systolic pressure/pulmonary artery pressure due to technically difficult study. Diastolic function is indeterminate. ____ Ordering Physician: Lj Christian Referring Physician: Julio Underwood Performed By: Misbah Garcia RCS Physical Exam Const alert and no apparent distress HEENT HEENT Narrative: icterus. Resp normal respiratory effort, no retractions, no use of accessory muscles and clear to auscultation bilaterally Cardio regular rate, regular rhythm, S1 normal heart sound and S2 normal heart sound GI soft to palpation GI Narrative: distended. Extremity General Extremity: edema Skin Skin Narrative: jaundice. palmar erythema Neuro Sensorium / Orientation: awake and alert Assessment & Plan Assessment/Plan (1) Elevated INR: (2) Acute alcoholic hepatitis: (3) Pneumonia: QUALIFIERS: Laterality: bilateral Lung location: lower lobe of lung Pneumonia type: due to unspecified organism Qualified Code(s): J18.9 - Pneumonia, unspecified organism (4) Elevated troponin: (5) ROLAND (acute kidney injury): (6) Septic shock: (7) Bacteremia: PLAN: 1. Septic shock * 2/2 pneumonia and bacteremia (UA unremarkable for infection) * qSOFA of 2 * received 30 cc/kg of IV in ED and was normotensive, only to drop again once he got to the PCU. Subsequently, transferred to ICU. * currently on norepinephrine * cannot rule out component of adrenal insufficiency given his long-term steroid use (since May). Started on Hydrocortisone. 2. Pneumonia * Presumed pneumococcal * Continue with ceftriaxone azithromycin * Urinary antigen Streptococcus Legionella negative 3. Staph aureus bacteremia * unclear source * repeat BCx * now on Vancomycin 4. Acute kidney injury * Likely prerenal. Slightly improved today * Continue with IV fluids * Consider additional studies if no improvement or worsening. * Low suspicion for hepatorenal syndrome at this time 5. Elevated troponins * Suspect due to demand, type II event * Patient not a candidate for aspirin or antiplatelet medications given his severe thrombocytopenia * 2D echo shows EF 70% * Patient is not a candidate for a cardiac catheterization given his multiple medical comorbidities. 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 Babin. * MELD 33 with a 3 month mortality of 52.6%. Child Dominguez 13 * Likely, he is not a candidate for transplant at this time given his recent cessation of alcohol. * Cannot rule out decompensated cirrhosis. * [place] Friend, he advises albumin 50g IV Q6h. * Abd US ordered to eval for cholecystitis 7. 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 VTE prophylaxis * Hold chemical prophylaxis is contraindicated with thrombocytopenia * SCDs 9. CODE STATUS * Addressed with the patient. Patient wishes to be DNR Comfort Care arrest no intubation 10. COVID-19, unvaccinated * Patient denies any recent exposure to any with COVID-19 and that he himself denies ever having had COVID-19. * Patient at higher risk given his other underlying medical comorbidities for potential for severe infection from COVID-19. 11. Atrial flutter * transiet. * currently in NSR Greater than 45 minutes of which greater than for present time was discussing with specialists, with doctors friend and trisha ball. Also discussing the family bedside about the patient's overall sepsis picture, septic shock, cirrhosis. Charges/Coding Visit Charges Inpatient E&M: 94071 Subs Hosp L3
--- NOTE | 2021-08-04 07:02 | PCM.RX.CS ---
Consult Pharmacy has been consulted to manage selected antiobiotic: Vancomycin Type of Consult: New start Suspected Infection: Sepsis, Pneumonia Prior Doses of Antibiotics Received/Current Regimen: Medications Vancomycin HCl () 500 mg in 100 mls @ 100 mls/hr IV Q12H JULY Vancomycin HCl 2,000 mg/ (Sodium Chloride) 540 mls @ 250 mls/hr IV X1 ONE Stop: 08/04/21 08:09 Last Admin: 08/04/21 06:39 Dose: 250 mls/hr Documented by: Labs: Sodium 135 mmol/L (136-145) L 08/04/21 04:27 Potassium 5.0 mmol/L (3.5-5.1) 08/04/21 04:27 Chloride 104 mmol/L (98-107) 08/04/21 04:27 Carbon Dioxide 28.0 mmol/L (21.0-32.0) 08/04/21 04:27 Anion Gap 3 (5-15) L 08/04/21 04:27 BUN 47 mg/dL (7-18) H 08/04/21 04:27 Creatinine 1.77 mg/dL (0.70-1.30) H 08/04/21 04:27 Est GFR (MDRD) Af Amer 50 mL/min (>60) L 08/04/21 04:27 Est GFR (MDRD) Non-Af 41 mL/min (>60) L 08/04/21 04:27 BUN/Creatinine Ratio 26.6 RATIO (10-20) H 08/04/21 04:27 Glucose 166 mg/dL (74-106) H 08/04/21 04:27 Microbiology: Microbiology 08/03/21 08:04 Blood Culture (Wb) - Anticubital Right Blood Culture - Final Staphylococcus aureus 08/03/21 08:38 Blood Culture (Wb) - Anticubital Left Bacteria Detection (PCR) - Final Staphylococcus aureus 08/03/21 08:38 Blood Culture (Wb) - Anticubital Left Blood Culture - Preliminary Staphylococcus aureus 08/03/21 16:00 Urine Catheter - Parker Legionella Antigen - Final 08/03/21 16:00 Urine Catheter - [place] Streptococcus pneumoniae Antigen (M - Final Weight used for dosin.3 kg Estimated Creatinine Clearance: 42 Goal Trough: 15-20 mcg/mL Pharmacy Plan for Drug Dosing: Pharmacy Service will continue to monitor and adjust dosing as required. Follow-Up Labs: Trough Vancomycin Labs to be done on [date and time ordered]: 08/05/21 @1800
--- NOTE | 2021-08-04 07:35 | RAD_ITS ---
STUDY: X-RAY CHEST REASON FOR EXAM: Male, 65 years old. Concern for left lower lobe pneumonia TECHNIQUE: Single AP portable view of the chest. COMPARISON: 08/03/2021 FINDINGS: Interval placement of right upper extremity PICC with tip the catheter overlying the junction of the right atrium and spur vena cava. Poor inspiration with some bibasilar atelectasis. There is no demonstrated pleural abnormality. Normal size heart. Normal mediastinum and jaylyn. Normal visualized pulmonary arteries. Normal visualized aortic arch and descending thoracic aorta. Normal visualized thoracic spine. Normal visualized ribs, clavicles, and shoulders. There is no demonstrated abnormality of the visualized soft tissue structures of the upper abdomen. RAD/Chest 1 View (Portable) IMPRESSION: 1. Interval placement of right upper extremity PICC with tip the catheter overlying the junction of the right atrium and spur vena cava. 2. Poor inspiration with some bibasilar atelectasis. Electronically Signed: Kwesi Davis MD at 8:14 EDT ,
--- NOTE | 2021-08-04 07:50 | EKG12_ITS ---
Test Reason : RYTHM CHANGE Blood Pressure : / mmHG Vent. Rate : 043 BPM Atrial Rate : 033 BPM P-R Int : 000 ms QRS Dur : 096 ms QT Int : 442 ms P-R-T Axes : 000 005 011 degrees QTc Int : 373 ms Atrial fibrillation Abnormal ECG When compared with ECG of 03-AUG-2021 08:35, Atrial fibrillation has replaced Sinus rhythm Vent. rate has decreased BY 41 BPM Nonspecific T wave abnormality now evident in Lateral leads QT has shortened Confirmed by GALI FUENTES, PHILLY ([id number]), editor city DAREN JIMÉNEZ ([id number]) on 08/14/2021 8:23:39 AM Referred By: JOVANNY Confirmed By:PHILLY TALBERT MD
[2021-08-04] MEDS: Lactulose 20 GM/30 ML UDC PO ×2 (09:40→22:46)
[2021-08-04] MEDS: ALBUMIN HUMAN IV ×4 (09:40→22:49)
[2021-08-04] MEDS: Pantoprazole Sodium 40 MG Tablet PO ×2 (09:41→22:48)
--- NOTE | 2021-08-04 10:45 | US_ITS ---
STUDY: ABDOMINAL ULTRASOUND REASON FOR EXAM: Male, 65 years old. sepsis TECHNIQUE: Transabdominal ultrasound was performed with real-time and static smith scale imaging. TECHNICAL QUALITY: Adequate. COMPARISON: 05/23/2021 FINDINGS: Liver: The liver measures 12.9 cm. There is a heterogeneous echogenicity of the liver. The bile ducts are within normal limits. There is hepatic color flow. The direction of portal flow is hepatopetal. There is no demonstrated mass lesion. Portal vein measurement: Gallbladder: The gallbladder is not visualized.. Common Bile Duct (C.B.D.): The common bile duct measures 3 mm. Pancreas: Normal size of the head, body and tail of the pancreas. There is normal echogenicity of the pancreas. There is no demonstrated pancreatic mass or cyst. Spleen: There is splenomegaly. The spleen measures 15.0 cm. Right Kidney: Normal size of the right kidney. The right kidney measures 10.3 cm. Normal renal cortex. The right cortex measures 1.3 cm. There is no demonstrated renal mass or cyst. There is no right hydronephrosis. Left Kidney: Normal size of the left kidney. The left kidney measures 10.5 cm. Normal renal cortex. The left cortex measures 1.6 cm. There is no demonstrated renal mass or cyst. There is no left hydronephrosis. Aorta: No abdominal aortic aneurysm. I.V.C.: The IVC is patent. There is mild ascites. US/Abdomen Complete IMPRESSION: Cirrhosis with a small amount of ascites and moderate splenomegaly from portal hypertension. Electronically Signed: Kwesi Davis MD at 12:26 EDT ,
--- NOTE | 2021-08-04 11:08 | PCM.CONS.C ---
Assessment & Plan Assessment/Plan (1) Elevated troponin: PLAN: The patient does have findings of an elevated troponin I level. At the present time this is thought to be related to a type II event secondary to his noncardiovascular comorbidities including concerns such as his sepsis. At the present time the patient has undergone noninvasive evaluation as noted. The patient does not appear to be an ideal candidate for invasive cardiovascular evaluation such as diagnostic cardiac catheterization based upon his ongoing multiple noncardiac comorbidities and hematologic abnormalities and renal insufficiency, etc. Thus the patient should continue medical management for his multiple noncardiac comorbidities and additional cardiovascular diagnoses as deemed appropriate. (2) Atrial fibrillation and flutter: PLAN: The patient had paroxysmal atrial fibrillation/flutter. He had spontaneous conversion to sinus rhythm. At the moment he is not an ideal candidate for rate control therapy with beta-blockers or calcium channel antagonist based upon his low blood pressure requiring IV vasopressor support. He may be a candidate for rate control therapy with digitalis taking into consideration the need to monitor his renal insufficiency. He is not an ideal candidate for antiarrhythmic therapy such as amiodarone based upon his underlying hepatic insufficiency, however, if need be during an urgent/emergent event his only option may be temporary IV amiodarone therapy. He is not an ideal candidate for other antiarrhythmics such as 1C agent such as flecainide as it is not known whether he has any underlying significant CAD. He is not an ideal candidate for other antiarrhythmic agents such as sotalol which could potentially lower his blood pressure and there was concern of interaction with his renal insufficiency. He is not an ideal candidate for other antiarrhythmic agents such as dofetilide based upon concerns of his underlying renal insufficiency. He is auto anticoagulated based upon his hepatic insufficiency and his INR being elevated. (3) Bacteremia: PLAN: He is under going evaluation and care for concerns of bacteremia. (4) Acute alcoholic hepatitis: PLAN: He does have a history of what is thought to be alcoholic hepatitis. His hepatic transaminases were elevated. He continues evaluation care as noted above. (5) Cirrhosis: PLAN: He does have a history of cirrhosis. This appears to be secondary to his alcoholic intake. He is undergoing evaluation care by internal medicine as well as pulmonology/critical care medicine. He may need additional evaluation care per gastroenterology/hepatology. (6) Elevated INR: PLAN: His INR is elevated thought secondary to his underlying hepatic insufficiency. This does need to be monitored. If his INR corrects and he has continued evidence of atrial dysrhythmias then he may need to be considered for some form of anticoagulant therapy if deemed safe based upon his multiple comorbidities. (7) Thrombocytopenia: PLAN: He does have thrombocytopenia thought it was underlying hepatic insufficiency. This would pose a concern with respect to attempting invasive evaluation or care as well as potentially anticoagulant therapy. (8) ROLAND (acute kidney injury): PLAN: His renal and patient's he does to be monitored and taken into consideration with adjustment of medications. (9) Hypertension: PLAN: At the time he is hypotensive not secondary to his underlying bacteremia/sepsis syndrome. He is requiring IV vasopressor support. Addt'l Comments At the present time the case was discussed and reviewed with the patient, his spouse, his daughter, and the [facility] medical staff. From a cardiac standpoint he will continue to be monitored. He has already undergone noninvasive cardiovascular evaluation. If he has recurrent concerns of atrial dysrhythmias then consideration will be given at the time, based upon his multiple noncardiac comorbidities, as to how to best assist with rate control/rhythm control, etc. This note was generated using a voice recognition system and there may be incorrect words, spelling or punctuation that were not noted when reviewing the office note prior to saving. HPI Consult Data Date of Consult: 08/04/21 HPI Narrative HPI Narrative: LISSETT CASILLAS, is a 65 year old white male who presents for concerns of abnormal cardiac enzymes, findings compatible with paroxysmal atrial fibrillation/flutter, superimposed upon bacteremia, alcoholic related hepatitis, cirrhosis, coagulopathy, thrombocytopenia, renal insufficiency, and a history of hypertension. The patient has been noted to have multiple noncardiac comorbidities which led to his hospitalization. He has been undergoing evaluation care per internal medicine and pulmonology/critical care medicine. He has been noted to have abnormal troponin I levels which have been thought secondary to his noncardiac comorbidities. He has been noted to have, this morning, findings compatible with paroxysmal atrial fibrillation/flutter with rapid ventricular response with spontaneous conversion back to sinus rhythm, and he has undergone evaluation with a transthoracic echocardiogram which has been noted below. He has required medical therapy for his multiple noncardiovascular conditions including concerns of hypotension requiring IV vasopressor therapy with Levophed. At the present time the patient denies any known cardiac history. He denies any ongoing concerns of chest discomfort. He has been noted to have an element of shortness of breath and dyspnea with activity but has denied any acute orthopnea or PND. He denies any history of peripheral pitting edema. He states he has had abdominal related involvement with ascites which has required paracentesis in the past. There has been no report of near syncope or syncope. He does not recall going through previous cardiovascular evaluation. He states he has been trying to refrain from any alcohol intake for some time now. His hope is that over time he would be, a candidate for hepatic transplant. His spouse and daughter are with him today. They appear to be unaware of any cardiovascular history. [facility] Medical History (Updated 08/04/21 @ 11:[address] Roberto Bravo MD) Alcohol dependence Anxiety Ascites Atrial fibrillation and flutter Chewing tobacco use Cirrhosis ETOH abuse GI bleed Hepatitis History of ulceration Hyperbilirubinemia Hypertension Hyponatremia Hypophosphatemia Occasional tremors Poor historian Portal hypertension Shortness of breath on exertion Thrombocytopenia Thrombocytopenia Home Medications lactulose 20 gram/30 mL oral solution 20 g PO BID #3000 ml 07/02/21 [Rx Last Taken Unknown] prednisone 10 mg tablet See Rx Instructions PO DAILY #60 tab 07/09/21 [Rx Last Taken 07/31/21] carvedilol 6.25 mg tablet 6.25 mg PO BID #60 tab 07/18/21 [Rx Last Taken 07/31/21] furosemide 40 mg tablet 40 mg PO DAILY #30 tab 07/18/21 [Rx Last Taken Unknown] pantoprazole 40 mg tablet,delayed release 40 mg PO BID #60 tab 07/18/21 [Rx Last Taken 07/31/21] spironolactone 50 mg tablet 50 mg PO DAILY #30 tab 07/18/21 [Rx Last Taken Unknown] sucralfate 100 mg/mL oral suspension 10 ml PO Q6H 28 Days #1120 ml 07/31/21 [Rx Last Taken Unknown] Allergy/AdvReac Type Severity Reaction Status Date / Time No Known Allergies Allergy Verified 08/03/21 08:09 Family History Father No cardiac disease Mother CAD (coronary artery disease) Uncle Cirrhosis Surgical History Hx of esophagogastroduodenoscopy Previous back surgery Social History household members: spouse current occupational status: retired Smoking Status: Smoker, status unknown tobacco type: smokeless tobacco Smokeless tobacco user: chewing tobacco alcohol intake: former year quit: 2021 ROS Constitutional Constitutional: Reports fatigue Eyes Eyes: Reports as per HPI ENT HEENT: Reports as per HPI Cardiovascular Cardiovascular: Reports dyspnea on exertion Respiratory/Chest Respiratory/Chest: Reports dyspnea on exertion Gastrointestinal Gastrointestinal: Reports as per HPI Genitourinary Genitourinary: Reports as per HPI Musculoskeletal Musculoskeletal: Reports as per HPI Integumentary Integumentary: Reports jaundice Neurologic Neurologic: Reports as per HPI Psychiatric Psychiatric: Reports as per HPI Physical Exam Narrative This is a 65-year-old jaundiced and weak appearing male. Const alert and oriented x3 Orientation / Consciousness: awake HEENT normocephalic, head/scalp atraumatic and hearing grossly normal bilaterally Eyes Eyes Narrative: Sclera: Positive icterus Neck full ROM, supple and no JVD Resp Resp Narrative: Diminished respiratory effort Cardio regular rate, regular rhythm, S1 normal heart sound and S2 normal heart sound GI GI Narrative: Somewhat distended appearing: Positive bowel sounds Extremity no pedal edema Skin Skin Narrative: Jaundiced appearing Neuro oriented x3, moves all extremities, no focal motor deficits and no sensory deficits noted Psych Psych Narrative: Affect: Flat Risk Stratification Risk Stratification Applicable: Yes Age >/= 65: Yes >/= 3 CAD Risk Factors (HTN, HLD, DM, family hx of CAD, or current smoker): No Aspirin Use in the Past 7 Days: No Severe Angina (>/= episodes in 24 hours): No EKG ST Changes >/= 0.5mm: No Positive Cardiac Marker: Yes SAMAN Risk Stratification Score: 2 SAMAN % Risk: 8% Risk Procedure Criteria Type of Procedure Procedure Type: Elective Elective Risks - COVID COVID Risk Discussion: The surgeon/proceduralist and patient have discussed in detail the risk of exposure to and/or potential harm posed by the COVID-19 virus with having a surgery/procedure at this time versus the risk of delaying the surgery/procedure. It is not possible to know either the risk of delaying the surgery or procedure or chance of getting an infection with perfect accuracy, but a joint decision was made between the patient and the surgeon/proceduralist to proceed at this time with the scheduled surgery/procedure as indicated on the consent form. Objective Data Vital Signs: Vital Signs Temp Pulse Resp BP Pulse Ox 97.2 F L 128 H 17 92/76 95 08/04/21 08:00 08/04/21 09:00 08/04/21 09:00 08/04/21 09:30 08/04/21 09:00 Oxygen Flow Rate (L/min) 6 Oxygen Delivery Method High Flow Weight: 168 lb 3.403 oz Body Mass Index (BMI) 23.1 Intake & Output: Intake and Output for Last 24 Hours 08/02/21 08/03/21 08/04/21 23:59 23:59 23:59 Intake Total 4013.57 / 4141.07 762.00 / 762.00 Output Total 420 / 870 850 / 850 Balance 3593.57 / 3271.07 -88.00 / -88.00 Lab / Micro Data Result Diagrams: 08/04/21 04:27 08/04/21 04:27 Labs: Laboratory Results - last 24 hr 08/03/21 12:43: Lactic Acid 4.8 H* 08/03/21 16:00: Urine Color Melania, Urine Clarity Sl Cldy, Urine pH 6.0, Ur Specific Hagerman 1.020, Urine Protein 30 H, Urine Glucose (UA) Normal, Urine Ketones 5 H, Urine Occult Blood 150 H, Urine Nitrite Negative, Urine Bilirubin 3 H, Urine Urobilinogen 1 H, Ur Leukocyte Esterase 100 H, Urine RBC 0-5 SEEN, Urine WBC 5-10 SEEN, Ur Squamous Epith Cells 0 SEEN, Urine Bacteria 2+, Urine Mucus 0 SEEN 08/04/21 04:27: WBC 19.7 H, RBC 3.79 L, Hgb 14.4, Hct 40.3, MCV 106.3 H, MCH 38.0 H, MCHC 35.7, RDW Std Deviation 65.1 H, RDW Coeff of Belinda 16.7 H, Plt Count 66 L, MPV 11.4, Immature Gran % (Auto) 0.800, Neut % (Auto) 87.3 H, Lymph % (Auto) 6.4 L, [place] % (Auto) 4.6, Eos % (Auto) 0.3, Baso % (Auto) 0.6, Absolute Neuts (auto) 17.2 H, Absolute Lymphs (auto) 1.27, Nucleated RBC % 0.1, Differential Comment SCANNED, Diff Path Review May foll, Toxic Vacuolation 1+, Platelet Estimate MOD DEC, Anisocytosis 1+, Macrocytosis 1+ 08/04/21 04:27: PT 29.7 H, INR 2.9 08/04/21 04:27: Sodium 135 L, Potassium 5.0, Chloride 104, Carbon Dioxide 28.0, Anion Gap 3 L, BUN 47 H, Creatinine 1.77 H, Estim Creat Clear Calc 42.39, Est GFR (MDRD) Af Amer 50 L, Est GFR (MDRD) Non-Af 41 L, BUN/Creatinine Ratio 26.6 H, Glucose 166 H, Calcium 9.0, Total Bilirubin 13.50 H, AST 102 H, ALT 112 H, Alkaline Phosphatase 206 H, Total Protein 4.9 L, Albumin 1.4 L, Globulin 3.5, Albumin/Globulin Ratio 0.4 L Micro: Microbiology 08/03/21 16:00 Urine Catheter - Parker Urine Culture - Preliminary Staphylococcus aureus 08/03/21 08:04 Blood Culture (Wb) - Anticubital Right Blood Culture - Final Staphylococcus aureus 08/03/21 08:38 Blood Culture (Wb) - Anticubital Left Bacteria Detection (PCR) - Final Staphylococcus aureus 08/03/21 08:38 Blood Culture (Wb) - Anticubital Left Blood Culture - Preliminary Staphylococcus aureus 08/03/21 16:00 Urine Catheter - Parker Legionella Antigen - Final 08/03/21 16:00 Urine Catheter - Parker Streptococcus pneumoniae Antigen (M - Final Cardiology Labs/Tests 08/03/21 12:43: Lactic Acid 4.8 H* 08/03/21 16:00: Urine Color Melania, Urine Clarity Sl Cldy, Urine pH 6.0, Ur Specific Hagerman 1.020, Urine Protein 30 H, Urine Glucose (UA) Normal, Urine Ketones 5 H, Urine Occult Blood 150 H, Urine Nitrite Negative, Urine Bilirubin 3 H, Urine Urobilinogen 1 H, Ur Leukocyte Esterase 100 H, Urine RBC 0-5 SEEN, Urine WBC 5-10 SEEN 08/04/21 04:27: WBC 19.7 H, RBC 3.79 L, Hgb 14.4, Hct 40.3, MCV 106.3 H, MCH 38.0 H, MCHC 35.7, Plt Count 66 L, MPV 11.4, Immature Gran % (Auto) 0.800, Neut % (Auto) 87.3 H, Lymph % (Auto) 6.4 L, [place] % (Auto) 4.6, Eos % (Auto) 0.3, Baso % (Auto) 0.6, Absolute Neuts (auto) 17.2 H, Nucleated RBC % 0.1 08/04/21 04:27: PT 29.7 H, INR 2.9 08/04/21 04:27: Sodium 135 L, Potassium 5.0, Chloride 104, Carbon Dioxide 28.0, Anion Gap 3 L, BUN 47 H, Creatinine 1.77 H, Est GFR (MDRD) Af Amer 50 L, Est GFR (MDRD) Non-Af 41 L, BUN/Creatinine Ratio 26.6 H, Glucose 166 H, Calcium 9.0, Total Bilirubin 13.50 H Rhythm: Sinus rhythm; paroxysmal atrial fibrillation/flutter EKG: ECHO: As noted below Radiography Diagnostic Testing: Radiology Impression Echocardiogram 08/03/21 12:31 Interpretation Summary The study was technically difficult. Contrast injection was performed. Based upon the 2D echocardiographic and contrast enhanced images obtained there appears to be grossly normal left ventricular size, wall motion, and systolic function. The estimated ejection fraction is 70 %. Trivial mitral valve insufficiency. Trivial tricuspid valve insufficiency. Echolucency compatible with a pleural effusion. Unable to estimate RV systolic pressure/pulmonary artery pressure due to technically difficult study. Diastolic function is indeterminate. Ordering Physician: Lj Christian Referring Physician: Julio Underwood Performed By: Misbah Garcia RCS Chest X-Ray 08/04/21 07:35 IMPRESSION: 1. Interval placement of right upper extremity PICC with tip the catheter overlying the junction of the right atrium and spur vena cava. 2. Poor inspiration with some bibasilar atelectasis. Electronically Signed: Kwesi Davis MD at 8:14 EDT ,
[2021-08-04 11:15] LABS: LDH 330 U/L (87-241)
[2021-08-04 11:41] LABS: Lactic Acid 2.3 mmol/L (0.4-1.9)
[2021-08-04] MEDS: 0.9% Saline Lock 10 ML Syringe IV ×2 (12:00→14:04)
[2021-08-04 12:01] LABS: Allen Test Positive; Base Excess 0 mmol/L (-2 to +2); Bicarbonate 24.4 mmol/L (22-26); Blood Gas Specimen Type ART; O2 Delivery Device Cannula; PO2 68 mmHG (75-100); SITE R Radial; SO2 94 % (95-99); Total Carbon Dioxide 25 mmol/L; pCO2 34.8 mmHg (35-45); pH 7.45 (7.35-7.45)
[2021-08-04] MEDS: Midodrine HCl 5 MG Tablet 10 MG PO ×2 (12:22→15:59)
--- NOTE | 2021-08-04 12:30 | CASEMGMT ---
Social Work SW spoke w/pt briefly in regard to history of alcohol abuse. Pt states he has not drank since May. He is not in counseling, has quit on his own. SW inquired if he is interested in counseling or information on counseling. Pt states he will take some literature. SW gave pt information on [facility], [facility], [facility], and list of local AA meetings. PERCY Perez
[2021-08-04] MEDS: Digoxin 250 MCG/ML Ampul 500 MCG IV (14:03)
[2021-08-04 15:07] LABS: Reflex Lactate? Y
[2021-08-04] MEDS: Vancomycin IV 500 MG/100 ML BAG 100 MG IV (17:50)
--- NOTE | 2021-08-04 22:17 | PCM.CONS.GEN ---
Assessment & Plan Assessment/Plan (1) Thrombocytopenia: PLAN: Thrombocytopenia secondary to cirrhosis and splenic sequestration in the setting of possible DIC from sepsis (2) Atrial fibrillation and flutter: PLAN: Patient is being seen by cardiology. (3) Bacteremia: PLAN: Blood cultures are negative thus far for any specific bacteria. The source for meet may be a calculus cholecystitis. No gallbladder was seen on imaging at this time. We will need a CT scan of the abdomen pelvis as his previous images did show gallstones. He has no pain on exam and he has no pain by history. (4) Esophageal varices in cirrhosis: PLAN: Status post banding of 2 esophageal varices. His white count has been stable. (5) Sepsis: QUALIFIERS: Sepsis type: sepsis due to unspecified organism Sepsis acute organ dysfunction status: with acute organ dysfunction Severe sepsis acute organ dysfunction type: acute renal failure Acute renal failure type: unspecified Severe sepsis shock status: without septic shock Qualified Code(s): A41.9 - Sepsis, unspecified organism; R65.20 - Severe sepsis without septic shock; N17.9 - Acute kidney failure, unspecified PLAN: Other possible source for his bacteremia and sepsis-like picture could be SBP either primary or secondary bacterial peritonitis. He is on appropriate antibiotic coverage. With his INR of 2.9 I would not pursue a diagnostic paracentesis at this time because he has minimal amount of fluid. (6) Acute alcoholic hepatitis: PLAN: Acute alcoholic hepatitis with a high Madrey score greater than 32 initially he was started on prednisone therapy and after 7 days a Catalina score was calculated and it was still high so the recommendation would be to continue steroid therapy however in the setting of possible sepsis if he still continues to be hypotensive and requiring pressor therapy despite the use of midodrine and increasing oncotic pressure due to albumin then I would not pursue steroids anymore at this time. (7) ROLAND (acute kidney injury): PLAN: Acute kidney injury differential diagnosis does include ATN, prerenal azotemia, hepatorenal syndrome type II. He is on octreotide drip, albumin and midodrine. If his tachycardia still continues we will have to decrease the midodrine. We will continue to follow I will start him on Xifaxan 550 mg 2 times a day. Hopefully his INR will decrease with a second dose of vitamin K he may need FFP. If she still continues to have increased lactate along with acute kidney injury despite his recent alcoholic hepatitis he may need to be considered for liver transplant. Clinically he is more stable at this time however he is still very sick. HPI Consult Data Date of Consult: 08/04/21 HPI Narrative HPI Narrative: LISSETT CASILLAS, is a 65 M who presents to the ED with hematuria. He has a history of alcoholic cirrhosis complicated by ascites, encephalopathy in alcoholic hepatitis. In the ED he was diagnosed with sepsis due to his low blood pressure and increased white blood cell count. However he was on steroids for alcoholic otitis prior to him coming into the hospital. His baseline meld sodium score is 20-22. Work-up consistent with septic shock due to lactate over 4 (according to SIRS criteria), he was mildly hypotensive but keenly alert clinically. After the initial 500cc bolus of IV fluids, an additional 2 L were ordered to make his 30 cc/kg bolus. Antibiotics were ordered, plan is for admission to the hospital for what appears to be left lower lobe pneumonia. At this point he has not yet urinated for us, he has no symptoms of urinary retention and prefer to hold off on a catheter. At this time prior to initiating the additional 2 L of IV fluid as noted above, his blood pressure has come up some at 100/60. I was asked to see him due to his now requirement for pressors. He is also had mild worsening kidney function. His white blood cell count also increased along with his requirement for pressors did reach criteria for SIRS without clear sepsis due to no positive blood cultures or source for infection. I requested that we get an ultrasound of his right upper quadrant and his abdomen. It showed mild fluid and no visible gallbladder. The hepatobiliary system was not able to be evaluated due to his low blood pressure. He has been auto anticoagulating himself with a INR 2.9. This morning he also went into atrial fibrillation flutter and he was seen by cardiology due to mildly elevated troponin thought to be secondary to sepsis. At this time he is not on any antiarrhythmics because of the concern that it would worsen his liver function and kidney function. As per nursing he did have 2 bowel movements today after being constipated for 5 days. Patient introduced to this practice during hospitalization 05/23/21-05/26/21 for acute alcoholic hepatitis and new diagnosis of cirrhosis with ascites. No alcohol since his admission; his last drink was on the morning of admission. He had presented to the emergency department due to abdominal pain, bloating and nausea, hx of extensive alcohol abuse, hx of fatty liver. He had dark stool on day of admission and his urine had been orange; now stools have been normal, and urine is now yellow. He and his report his jaundice is less obvious. He denies pruritus. Denies confusion, mental fogginess. He is less tired overall than before hospitalization, however he reports feeling tired after he takes his medications. BM 1-2x per day, no melena or hematochezia. While hospitalized he was started on carvedilol, furosemide, spironolactone, pantoprazole, and prednisone. High Maddrey score 64 so his alcoholic hepatitis was treated with Solu-Medrol inpatient then transitioned to prednisone. Dr Babin did EGD, found esophageal varices, portal hypertensive gastropathy, bleeding duodenal ulcer which was treated with a heater probe and biopsied, esophageal candidiasis. He was treated with 5 days of fluconazole for the candidiasis. Pathology: gastric metaplasia from duodenal ulcer biopsy. Ammonia was normal. He has had a normal hemoglobin. He has thrombocytopenia, platelets 35,000 at discharge. INR was max of 2.7. He has hyponatremia. Kidney function has been normal. Bilirubin was 12.8 at presentation and decreased to 8.5 at discharge. Using his labs at discharge his MELD score was 30. Primary care doctor got labs on 05/30/2021, bilirubin was 9.8. An ultrasound of the liver was performed as well which showed cirrhosis of the liver, multiple gallstones, splenomegaly, and ascites. CT: Fatty infiltrated liver and splenomegaly Contracted thick-walled gallbladder with pericholecystic edema possibly representing acute cholecystitis. There is also mild effacement of the peripancreatic fat and mild pancreatitis cannot be entirely excluded. He had paracentesis with 2270 mL ascites removed, negative for malignancy. [facility] Medical History (Updated 08/04/21 @ 11:[address] Roberto Bravo MD) Alcohol dependence Anxiety Ascites Atrial fibrillation and flutter Chewing tobacco use Cirrhosis ETOH abuse GI bleed Hepatitis History of ulceration Hyperbilirubinemia Hypertension Hyponatremia Hypophosphatemia Occasional tremors Poor historian Portal hypertension Shortness of breath on exertion Thrombocytopenia Thrombocytopenia Home Medications lactulose 20 gram/30 mL oral solution 20 g PO BID #3000 ml 07/02/21 [Rx Last Taken Unknown] prednisone 10 mg tablet See Rx Instructions PO DAILY #60 tab 07/09/21 [Rx Last Taken 07/31/21] carvedilol 6.25 mg tablet 6.25 mg PO BID #60 tab 07/18/21 [Rx Last Taken 07/31/21] furosemide 40 mg tablet 40 mg PO DAILY #30 tab 07/18/21 [Rx Last Taken Unknown] pantoprazole 40 mg tablet,delayed release 40 mg PO BID #60 tab 07/18/21 [Rx Last Taken 07/31/21] spironolactone 50 mg tablet 50 mg PO DAILY #30 tab 07/18/21 [Rx Last Taken Unknown] sucralfate 100 mg/mL oral suspension 10 ml PO Q6H 28 Days #1120 ml 07/31/21 [Rx Last Taken Unknown] Allergy/AdvReac Type Severity Reaction Status Date / Time No Known Allergies Allergy Verified 08/03/21 08:09 Family History Father No cardiac disease Mother CAD (coronary artery disease) Uncle Cirrhosis Surgical History Hx of esophagogastroduodenoscopy Previous back surgery Social History household members: spouse current occupational status: retired Smoking Status: Smoker, status unknown tobacco type: smokeless tobacco Smokeless tobacco user: chewing tobacco alcohol intake: former year quit: 2021 ROS Review of Systems ROS Unobtainable: other Constitutional Constitutional: Denies fatigue, fever(s), poor appetite, weight gain or weight loss ENT HEENT: Denies mouth lesions Cardiovascular Cardiovascular: Denies abdominal bloating, abdominal edema or abdominal pain Respiratory/Chest Respiratory/Chest: Denies change in mental status, change in phlegm color, chest congestion or chest tightness Gastrointestinal Gastrointestinal: Denies belching, bloating, change in bowel habits, change in stool character, chewing difficulty, coffee ground emesis, constipation, cramping, diarrhea, dyspepsia, dysphagia, early satiety, excessive flatus, fecal incontinence, heartburn, hematemesis, hematochezia, hemorrhoids, loose stools, melena, nausea, odynophagia, rectal bleeding, tenesmus, vomiting or weight changes Genitourinary Genitourinary: Denies abdominal discomfort, burning urination or itching Musculoskeletal Musculoskeletal: Reports as per HPI; Denies muscle weakness or myalgias Integumentary Integumentary: Denies jaundice Neurologic Neurologic: Denies lack of coordination or weakness Psychiatric Psychiatric: Denies confusion, depression, memory loss, mood swings, paranoia or suicidal ideation Endocrine Endocrinology: Denies systems reviewed and no addt'l complaints, except as documented Hematologic/Lymphatic Hematologic/Lymphatic: Denies anemia, easy bleeding, easy bruising or lymphadenopathy Allergic/Immunologic Allergic/Immunologic: Denies systems reviewed and no addt'l complaints, except as documented Physical Exam Const alert General Appearance: cooperative Orientation / Consciousness: oriented to person HEENT hearing grossly normal bilaterally Head and Scalp: normal to inspection Face and Sinus: face symmetric Nose: external nose normal Mouth: oral and palatal mucosa normal Eyes conjunctivae normal General Eye: normal appearance of both eyes Neck full ROM General: normal visual inspection Lymph Lymphatic: no lymphadenopathy noted Chest inspection of chest normal and palpation of chest normal Chest: symmetrical chest wall rise Resp normal respiratory effort Effort and Inspection: able to speak in complete sentences Cardio regular rate GI non-distended Percussion: normal to percussion Rectal Exam: deferred Neuro Speech: speech normal Gait (Neuro): normal gait Lab / Micro Data Result Diagrams: 08/04/21 04:27 08/04/21 04:27 Labs: Laboratory Results - last 24 hr 08/04/21 04:27: WBC 19.7 H, RBC 3.79 L, Hgb 14.4, Hct 40.3, MCV 106.3 H, MCH 38.0 H, MCHC 35.7, RDW Std Deviation 65.1 H, RDW Coeff of Belinda 16.7 H, Plt Count 66 L, MPV 11.4, Immature Gran % (Auto) 0.800, Neut % (Auto) 87.3 H, Lymph % (Auto) 6.4 L, [place] % (Auto) 4.6, Eos % (Auto) 0.3, Baso % (Auto) 0.6, Absolute Neuts (auto) 17.2 H, Absolute Lymphs (auto) 1.27, Nucleated RBC % 0.1, Differential Comment SCANNED, Diff Path Review May foll, Toxic Vacuolation 1+, Platelet Estimate MOD DEC, Anisocytosis 1+, Macrocytosis 1+ 08/04/21 04:27: PT 29.7 H, INR 2.9 08/04/21 04:27: Sodium 135 L, Potassium 5.0, Chloride 104, Carbon Dioxide 28.0, Anion Gap 3 L, BUN 47 H, Creatinine 1.77 H, Estim Creat Clear Calc 42.39, Est GFR (MDRD) Af Amer 50 L, Est GFR (MDRD) Non-Af 41 L, BUN/Creatinine Ratio 26.6 H, Glucose 166 H, Calcium 9.0, Total Bilirubin 13.50 H, AST 102 H, ALT 112 H, Alkaline Phosphatase 206 H, Total Protein 4.9 L, Albumin 1.4 L, Globulin 3.5, Albumin/Globulin Ratio 0.4 L 08/04/21 04:27: Lactate Dehydrogenase 330 H 08/04/21 11:00: Lactic Acid 2.3 H* Micro: Microbiology 08/03/21 16:00 Urine Catheter - Parker Urine Culture - Preliminary Staphylococcus aureus 08/03/21 08:04 Blood Culture (Wb) - Anticubital Right Blood Culture - Final Staphylococcus aureus 08/03/21 08:38 Blood Culture (Wb) - Anticubital Left Bacteria Detection (PCR) - Final Staphylococcus aureus 08/03/21 08:38 Blood Culture (Wb) - Anticubital Left Blood Culture - Preliminary Staphylococcus aureus ABG Data ABG results: ABG 08/04/21 11:56 Specimen Type ART Sample Site R Radial pH 7.45 Bicarbonate Actual 24.4 Total CO2 25 Base Excess 0 O2 Saturation 94 L ABG pCO2 34.8 L ABG pO2 68 L Art Test Positive O2 Delivery Device Cannula Liter Flow 6.0 Radiology Impression Chest X-Ray 08/04/21 07:35 IMPRESSION: 1. Interval placement of right upper extremity PICC with tip the catheter overlying the junction of the right atrium and spur vena cava. 2. Poor inspiration with some bibasilar atelectasis. Electronically Signed: Kwesi Davis MD at 8:14 EDT , Abdomen Ultrasound 08/04/21 10:45 IMPRESSION: Cirrhosis with a small amount of ascites and moderate splenomegaly from portal hypertension. Electronically Signed: Kwesi Davis MD at 12:26 EDT , Charges/Coding Visit Charges Inpatient E&M: 39043 Init Hosp L3
[2021-08-04] MEDS: rifAXIMin 550 MG Tablet PO (22:44)
[2021-08-04] MEDS: Menthol/Lanolin/Calamine/Znox 113 GM Tube 1 APPLIC TOPICAL (22:46)
[2021-08-05] VITALS (39 sets, daily range): BP systolic 85–146; BP diastolic 47–93; PULSE 40–93; RESP 12–29; TEMP 36.1–36.5; O2SAT 80–97
[2021-08-05] MEDS: Albuterol 2.5 MG/3 ML VIAL.NEB. INHALATION ×5 (03:35→19:00)
--- NOTE | 2021-08-05 03:40 | RAD_ITS ---
STUDY: X-RAY CHEST REASON FOR EXAM: Male, 65 years old. SOB TECHNIQUE: Portable, upright, AP chest radiograph COMPARISON: 08/04/2021 RAD/Chest 1 View (Portable) IMPRESSION: Right mid to lower lung consolidation and left perihilar consolidation compatible with multifocal pneumonia. Right upper extremity PICC remains. Electronically Signed: Roberto Gupta MD at 3:58 EDT ,
[2021-08-05 03:47] LABS: Absolute Lymphocyte Count 0.75 X10^3/uL (0.83-4.51); Absolute Neutrophil Count 9.4 X10^3/uL (2.0-7.7); Basophil# 0.02 X10^3/uL; Basophil% 0.2 % (0-1); Hematocrit 28.2 % (40-54); Hemoglobin 10.1 g/dL (13.0-16.5); Lymphocyte # 0.75 X10^3/ul (0.83-4.51); Lymphocyte % 6.8 % (19-41); Mean Corp Hgb Conc 35.8 g/dL (32-36); Mean Corpuscular Hgb 38.3 pg (27.0-32.0); Mean Corpuscular Volume 106.8 fL (80-94); Mean Platelet Vol. 9.8 fl (6.2-12.0); Monocyte# 0.68 X10^3/uL; Monocyte% 6.2 % (0-10); NRBC Flagged by Analyzer 0 % (0-5); Neutrophil # 9.43 X10^3/uL (2.7-7.7); POSITIVE COUNT YES; POSITIVE MORPHOLOGY YES; RBC Distribution Width CV 16.8 % (11.6-14.6); RBC Distribution Width SD 64.6 fl (35.1-43.9); Red Blood Count 2.64 M/mm3 (4.6-6.2)
[2021-08-05 03:51] LABS: Differential Indicated SCAN CRITERIA MET
[2021-08-05 03:52] LABS: Platelet Count 44 K/mm3 (150-450)
--- NOTE | 2021-08-05 04:13 | PCM.PN.BLA ---
Progress Note Notified by nurse that patient is having wheezes at the bases and his oxygen requirement has increased from 2 L to 8 L high flow oxygen. Nurses required breathing treatment.. Albuterol ordered. Chest x-ray obtained showed multifocal opacity. Patient is on albumin [id number]. Noted that on home Lasix. Currently on vancomycin, ceftriaxone and azithromycin. Patient has pneumonia and staph bacteremia. Will discontinue ceftriaxone and add Zosyn. We will give a one-time dose of Lasix 40 mg IV push
[2021-08-05 04:15] LABS: ALB/GLOB Ratio 1.7 RATIO (0.9-2.4); AST(SGOT) 69 U/L (15-37); Alanine Aminotransfer ALT/SGPT 76 U/L (16-61); Albumin, Serum 3.5 g/dL (3.2-5.0); Alkaline Phosphatase 141 U/L (45-117); Anion Gap 5 (5-15); BUN 60 mg/dL (7-18); BUN/Creat Ratio 32.8 RATIO (10-20); Calcium,Total 10.2 mg/dL (8.5-10.1); Chloride 104 mmol/L (98-107); Creatinine, Serum 1.83 mg/dL (0.70-1.30); EST Glomerular Filtration Rate 40 mL/min (>60); Est Glom Filt Rate - Afr Amer 48 mL/min (>60); Globulin 2.1 g/dL (2.2-4.2); Glucose 202 mg/dL (74-106); Potassium 5.1 mmol/L (3.5-5.1); Protein, Total 5.6 g/dL (6.4-8.2); Sodium Level 136 mmol/L (136-145)
[2021-08-05 04:50] LABS: Differential Comment SCANNED; Platelet Estimate MKD DEC (ADEQ)
[2021-08-05 04:51] LABS: Vacuolated Cells 1+
[2021-08-05] MEDS: Furosemide 40 MG/4 ML Vial IV ×2 (05:08→12:58)
[2021-08-05] MEDS: Atropine Sulfate 1 MG/10 ML Syringe 0.5 MG IV (05:15)
[2021-08-05] MEDS: Vancomycin IV 500 MG/100 ML BAG 100 MG IV (05:35)
[2021-08-05] MEDS: Hydrocortisone Sod Succinate 100 MG/2 ML Vial 50 MG IV ×4 (05:38→23:29)
[2021-08-05] MEDS: ALBUMIN HUMAN IV (05:40)
--- NOTE | 2021-08-05 06:14 | NURSING ---
At approx 0435, pt requested to be placed on the bedpan. At 0441, the monitor was showing asystole and pt's O2 dropped to the low 80s. This RN went into the room and called pt's name. Pt responded to verbal stimuli and answered all questions appropriately. Pt's HR remained in the 40s and SpO2 in the low 80s to high 70s. RT was called since pt was not responding to increased high flow oxygen therapy. Dr. Carpenter notified. Pt placed on venti mask by RT and given another breathing treatment. EKG obtained. Orders for 0.5mg atropine given by Dr. Carpenter after he assessed pt. Atropine administered and pt responded quickly. Pt placed on BiPAP and VS remain stable.
--- NOTE | 2021-08-05 06:40 | PN.CC_ITS ---
Assessment & Plan Assessment/Plan (1) Sepsis: QUALIFIERS: Sepsis type: sepsis due to unspecified organism Sepsis acute organ dysfunction status: with acute organ dysfunction Severe sepsis acute organ dysfunction type: acute renal failure Acute renal failure type: unspecified Severe sepsis shock status: without septic shock Qualified Code(s): A41.9 - Sepsis, unspecified organism; R65.20 - Severe sepsis without septic shock; N17.9 - Acute kidney failure, unspecified (2) Cirrhosis: (3) Elevated INR: (4) Esophageal varices in cirrhosis: (5) Portal hypertension: PLAN: RECOMMENDATIONS: 1. Attempt to break off of BiPAP this morning 2. Continue vancomycin in addition to Zosyn 3. Wean supplemental oxygen as tolerated 4. Repeat blood cultures to ensure clearance 5. Monitor for acute blood loss IMPRESSIONS: 1. Septic shock secondary to possible left lower lobe pneumonia Patient does appear to have a possible infiltrate in the left lower lobe. Repeat chest x-ray following volume resuscitation may be more helpful. Patient would be at risk for SBP given recent banding. Ceftriaxone and azithromycin should be appropriate. Pancultures pending. Patient will have a lower blood pressure secondary to oncotic issues associated with cirrhosis. Wean pressors as tolerated 2. Coagulopathy/thrombocytopenia/esophageal varices/portal hypertension secondary to cirrhosis Patient with recent GI banding. Patient stopped drinking in May 2021. No concerns for withdrawal at this time. Patient has not had any significant bleeding. Unclear if urethral bleeding is secondary to trauma. No significant hematuria but noted with Parker. We will hold on irrigation at this time. Despite coagulopathy, hemoglobin is normal. We will hold off on any serial H&H's. 3. Acute kidney injury Slightly improved. Clinical suspicion for prerenal etiology secondary to problem #1. Continue with IV fluids. Renal function was adequate previously, so hepatorenal syndrome is not highly suspected at this time. We will continue to monitor closely. Hyperkalemia likely secondary to acidosis related to problem #1. We will continue to address vascular status. Telemetry will be continued. 4. Acute hypoxic respiratory failure secondary to probable bilateral pneumonia Patient requiring significant supplemental oxygen. Initial chest x-ray did show some infiltrate in the left lower lobe. Repeat chest x-ray yesterday was not impressive, but overnight patient has developed a right-sided greater than left-sided infiltrate. Cannot rule out septic emboli given positive blood cultures. BiPAP rescue for now. Will attempt breaks during the day. 5. Elevated troponin/recent intervention/history of alcoholism Complicates care, management, recovery and prognosis. Clinical suspicion for supply demand mismatch for elevated troponin. Echocardiogram is currently pending. 6. New onset A. fib with RVR/sinus pause Patient has spontaneously transition to normal sinus rhythm. No rate control at this time. Patient with significant sinus pause this morning requiring atropine rescue. This was during a bowel movement, so increased vagal response is suspected. TIME: 34 minutes critical care time spent addressing patient's septic shock, acute hypoxic respiratory failure, acute kidney injury, coagulopathy, review of all data and collaboration with care team Subjective Subjective Patient able to come off of pressors at approximately 3 PM yesterday. Patient was given digoxin secondary to A. fib with RVR by cardiology. Patient has been initiated on midodrine. This morning, patient was attempting to have a bowel movement and had a significant bradycardic event that subsequently led to atropine and initiation of BiPAP. Patient has no report of clinical bleeding. Patient is only requesting discontinuation of BiPAP, but not reporting any specific pain. Objective Data Objective Data Vital Signs: Vital Signs Temp Pulse Resp BP Pulse Ox 36.4 C L 80 21 H 108/48 L 97 08/05/21 00:00 08/05/21 06:00 08/05/21 06:00 08/05/21 06:00 08/05/21 06:00 Oxygen Flow Rate (L/min) 8 Oxygen Delivery Method Bi-pap Weight: 77.9 kg Body Mass Index (BMI) 23.1 Intake & Output: Intake and Output for Last 24 Hours 08/03/21 08/04/21 08/05/21 23:59 23:59 23:59 Intake Total 4013.57 / 4141.07 2343.86 / 2443.86 400 / 400 Output Total 420 / 870 1375 / 1675 550 / 550 Balance 3593.57 / 3271.07 968.86 / 768.86 -150 / -150 Lab / Micro Data Result Diagrams: 08/05/21 03:35 08/05/21 03:35 Labs: Laboratory Results - last 24 hr 08/04/21 04:27: Lactate Dehydrogenase 330 H 08/04/21 11:00: Lactic Acid 2.3 H* 08/05/21 03:35: WBC 11.0, RBC 2.64 L, Hgb 10.1 L, Hct 28.2 L, MCV 106.8 H, MCH 38.3 H, MCHC 35.8, RDW Std Deviation 64.6 H, RDW Coeff of Belinda 16.8 H, Plt Count 44 L*, MPV 9.8, Immature Gran % (Auto) 0.800, Neut % (Auto) 86.0 H, Lymph % (Au to) 6.8 L, [place] % (Auto) 6.2, Eos % (Auto) 0.0, Baso % (Auto) 0.2, Absolute N euts (auto) 9.4 H, Absolute Lymphs (auto) 0.75 L, Nucleated RBC % 0, Differential Comment SCANNED, Diff Path Review August, Toxic Vacuolation 1+, Platelet Estimate MKD 08/05/21 03:35: Sodium 136, Potassium 5.1, Chloride 104, Carbon Dioxide 27.0, Anion Gap 5, BUN 60 H, Creatinine 1.83 H, Estim Creat Clear Calc 41.00, Est GFR (MDRD) Af Amer 48 L, Est GFR (MDRD) Non-Af 40 L, BUN/Creatinine Ratio 32.8 H, Glucose 202 H, Calcium 10.2 H, Total Bilirubin 13.90 H, AST 69 H, ALT 76 H, Alkaline Phosphatase 141 H, Total Protein 5.6 L, Albumin 3.5, Globulin 2.1 L, Albumin/Globulin Ratio 1.7 Micro: Microbiology 08/04/21 08:10 Blood Culture (Wb) - Anticubital Left Blood Culture - Preliminary 08/04/21 08:00 Blood Culture (Wb) - Pic Blood Culture - Preliminary 08/03/21 16:00 Urine Catheter - Parker Urine Culture - Preliminary Staphylococcus aureus 08/03/21 08:04 Blood Culture (Wb) - Anticubital Right Blood Culture - Final Staphylococcus aureus 08/03/21 08:38 Blood Culture (Wb) - Anticubital Left Bacteria Detection (PCR) - Final Staphylococcus aureus 08/03/21 08:38 Blood Culture (Wb) - Anticubital Left Blood Culture - Preliminary Staphylococcus aureus 08/03/21 16:00 Urine Catheter - Parker Legionella Antigen - Final 08/03/21 16:00 Urine Catheter - Parker Streptococcus pneumoniae Antigen (M - Final ABG Data ABG results: ABG 08/04/21 11:56 Specimen Type ART Sample Site R Radial pH 7.45 Bicarbonate Actual 24.4 Total CO2 25 Base Excess 0 O2 Saturation 94 L ABG pCO2 34.8 L ABG pO2 68 L Art Test Positive O2 Delivery Device Cannula Liter Flow 6.0 Radiography Diagnostic Testing: Radiology Impression Chest X-Ray 08/04/21 07:35 IMPRESSION: 1. Interval placement of right upper extremity PICC with tip the catheter overlying the junction of the right atrium and spur vena cava. 2. Poor inspiration with some bibasilar atelectasis. Electronically Signed: Kwesi Davis MD at 8:14 EDT , Abdomen Ultrasound 08/04/21 10:45 IMPRESSION: Cirrhosis with a small amount of ascites and moderate splenomegaly from portal hypertension. Electronically Signed: Kwesi Davis MD at 12:26 EDT , Chest X-Ray 08/05/21 03:40 IMPRESSION: Right mid to lower lung consolidation and left perihilar consolidation compatible with multifocal pneumonia. Right upper extremity PICC remains. Electronically Signed: Roberto Gupta MD at 3:58 EDT , Physical Exam Const alert and no apparent distress Constitutional Narrative: Significant jaundice. On BiPAP with good synchrony. General Appearance: cooperative HEENT normocephalic, head/scalp atraumatic and moist oral mucous membranes Eyes Eyes Narrative: Glasses not in place Sclera: sclera abnormal Positive for bilateral (Icterus) Neck no lymphadenopathy Resp normal respiratory effort, no retractions, no use of accessory muscles and clear to auscultation bilaterally Cardio regular rate, regular rhythm, S1 normal heart sound and S2 normal heart sound GI soft to palpation and non-tender GI Narrative: Slightly distended abdomen. No rebound or guarding noted Extremity normal to inspection and full ROM Skin Skin Narrative: Palmar erythema Neuro Neuro Narrative: Asterixis Sensorium / Orientation: awake and alert Psych affect normal Mood & Affect: depressed Charges/Coding Procedures Hospitalists Procedures: 56738 Critial Care 1st Hr
[2021-08-05] MEDS: Midodrine HCl 5 MG Tablet 10 MG PO ×2 (08:03→12:58)
[2021-08-05] MEDS: CHLORHEXIDINE GLUC 2% CLOTH 1 EACH TOWELETTE TOPICAL (08:03)
[2021-08-05] MEDS: Menthol/Lanolin/Calamine/Znox 113 GM Tube 1 APPLIC TOPICAL ×2 (08:04→21:48)
[2021-08-05] MEDS: 0.9% Saline Lock 10 ML Syringe IV ×2 (08:04→23:30)
[2021-08-05] MEDS: Pantoprazole Sodium 40 MG Tablet PO ×2 (08:05→21:49)
[2021-08-05] MEDS: Lactulose 20 GM/30 ML UDC PO ×2 (08:05→22:19)
[2021-08-05] MEDS: rifAXIMin 550 MG Tablet PO ×2 (08:10→21:49)
--- NOTE | 2021-08-05 08:44 | PN.HOSP_ITS ---
Subjective Subjective Denies pain. Denies SOB, though had increased oxygen requirements. Objective Data Objective Data Vital Signs: Vital Signs Temp Pulse Resp BP Pulse Ox 36.4 C L 78 21 H 108/48 L 93 08/05/21 00:00 08/05/21 06:59 08/05/21 06:00 08/05/21 06:00 08/05/21 07:44 Oxygen Flow Rate (L/min) 12 Oxygen Delivery Method High Flow Weight: 77.9 kg Body Mass Index (BMI) 23.1 Intake & Output: Intake and Output for Last 24 Hours 08/03/21 08/04/21 08/05/21 23:59 23:59 23:59 Intake Total 4013.57 / 4141.07 2343.86 / 2443.86 650.83 / 650.83 Output Total 420 / 870 1375 / 1675 550 / 550 Balance 3593.57 / 3271.07 968.86 / 768.86 100.83 / 100.83 Lab / Micro Data Result Diagrams: 08/05/21 08:50 08/05/21 03:35 Labs: Laboratory Results - last 24 hr 08/04/21 04:27: Lactate Dehydrogenase 330 H 08/04/21 11:00: Lactic Acid 2.3 H* 08/05/21 03:35: WBC 11.0, RBC 2.64 L, Hgb 10.1 L, Hct 28.2 L, MCV 106.8 H, MCH 38.3 H, MCHC 35.8, RDW Std Deviation 64.6 H, RDW Coeff of Belinda 16.8 H, Plt Count 44 L*, MPV 9.8, Immature Gran % (Auto) 0.800, Neut % (Auto) 86.0 H, Lymph % (Auto) 6.8 L, [place] % (Auto) 6.2, Eos % (Auto) 0.0, Baso % (Auto) 0.2, Absolute Neuts (auto) 9.4 H, Absolute Lymphs (auto) 0.75 L, Nucleated RBC % 0, Differential Comment SCANNED, Diff Path Review May foll, Toxic Vacuolation 1+, Platelet Estimate MKD 08/05/21 03:35: Sodium 136, Potassium 5.1, Chloride 104, Carbon Dioxide 27.0, Anion Gap 5, BUN 60 H, Creatinine 1.83 H, Estim Creat Clear Calc 41.00, Est GFR (MDRD) Af Amer 48 L, Est GFR (MDRD) Non-Af 40 L, BUN/Creatinine Ratio 32.8 H, Glucose 202 H, Calcium 10.2 H, Total Bilirubin 13.90 H, AST 69 H, ALT 76 H, Alkaline Phosphatase 141 H, Total Protein 5.6 L, Albumin 3.5, Globulin 2.1 L, Albumin/Globulin Ratio 1.7 Micro: Microbiology 08/03/21 16:00 Urine Catheter - Parker Urine Culture - Final Staphylococcus aureus 08/03/21 08:38 Blood Culture (Wb) - Anticubital Left Bacteria Detection (PCR) - Final Staphylococcus aureus 08/03/21 08:38 Blood Culture (Wb) - Anticubital Left Blood Culture - Final Staphylococcus aureus 08/04/21 08:10 Blood Culture (Wb) - Anticubital Left Blood Culture - Preliminary 08/04/21 08:00 Blood Culture (Wb) - Pic Blood Culture - Preliminary 08/03/21 08:04 Blood Culture (Wb) - Anticubital Right Blood Culture - Final Staphylococcus aureus 08/03/21 16:00 Urine Catheter - Parker Legionella Antigen - Final 08/03/21 16:00 Urine Catheter - Parker Streptococcus pneumoniae Antigen (M - Final ABG Data ABG results: ABG 08/04/21 11:56 Specimen Type ART Sample Site R Radial pH 7.45 Bicarbonate Actual 24.4 Total CO2 25 Base Excess 0 O2 Saturation 94 L ABG pCO2 34.8 L ABG pO2 68 L Art Test Positive O2 Delivery Device Cannula Liter Flow 6.0 Radiography Diagnostic Testing: Radiology Impression Abdomen Ultrasound 08/04/21 10:45 IMPRESSION: Cirrhosis with a small amount of ascites and moderate splenomegaly from portal hypertension. Electronically Signed: Kwesi Davis MD at 12:26 EDT , Chest X-Ray 08/05/21 03:40 IMPRESSION: Right mid to lower lung consolidation and left perihilar consolidation compatible with multifocal pneumonia. Right upper extremity PICC remains. Electronically Signed: Roberto Gupta MD at 3:58 EDT , Physical Exam Const Constitutional Narrative: awake. confused. speech difficult to understant. Neck no lymphadenopathy Resp normal respiratory effort, no retractions, no use of accessory muscles and clear to auscultation bilaterally Cardio regular rate, regular rhythm, S1 normal heart sound and S2 normal heart sound GI non-tender Extremity Extremity Narrative: edema in LE. Skin Skin Narrative: jaundice Assessment & Plan Assessment/Plan (1) Elevated INR: (2) Acute alcoholic hepatitis: (3) Pneumonia: QUALIFIERS: Laterality: bilateral Lung location: lower lobe of lung Pneumonia type: due to unspecified organism Qualified Code(s): J18.9 - Pneumonia, unspecified organism (4) Elevated troponin: (5) ROLAND (acute kidney injury): (6) Septic shock: (7) Bacteremia: PLAN: 1. Septic shock * 2/2 pneumonia and bacteremia (UA unremarkable for infection) * qSOFA of 2 * received 30 cc/kg of IV in ED and was normotensive, only to drop again once he got to the PCU. Subsequently, transferred to ICU. * weaned off norepinephrine * cannot rule out component of adrenal insufficiency given his long-term steroid use (since May). Continue Hydrocortisone. 2. Pneumonia * Presumed pneumococcal * CXR showed worsening infiltrate/edema. CTX changed to pip/tazo. * Urinary antigen Streptococcus Legionella negative 3. Staph aureus bacteremia * MSSA unclear source * repeat BCx pending * 2d echo did not show any vegetations * DC Vancomycin 4. Acute kidney injury * Likely prerenal +/- HRS. * Continue with IV fluids * Consider additional studies if no improvement or worsening. 5. Elevated troponins * Suspect due to demand, type II event * Patient not a candidate for aspirin or antiplatelet medications given his severe thrombocytopenia * 2D echo shows EF 70% * Patient is not a candidate for a cardiac catheterization given his multiple medical comorbidities. 6. 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 Patient stopped drinking alcohol May 2021 * Patient had recent variceal banding performed by Dr. Babin. * MELD 33 with a 3 month mortality of 52.6%. Child Dominguez 13 * Albumin 50g IV Q6h, octreotide gtt, midodrine, rifaximin. * Abd US showed cirrhosis * Pt received vitamin K, but despite that INR has gone up to 4.2 * GT Dr. Friend, he is concerned for fulminant liver failure and [facility]. Will check ammonia, lactate and ABG. DW family about transfer prior. 7. Acute hypoxic respiratory failure * 2/2 suspected pneumonia but also CHF * overall 4.7 liters positive * off IVF * did receive 40 mg of IV furosemide this AM. Hold off on scheduled furosemide given tenuous BP. 8. 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 VTE prophylaxis * Hold chemical prophylaxis is contraindicated with thrombocytopenia * SCDs 10. CODE STATUS * Addressed with the patient. Patient wishes to be DNR Comfort Care arrest no intubation 11. COVID-19, unvaccinated * Patient denies any recent exposure to any with COVID-19 and that he himself denies ever having had COVID-19. * Patient at higher risk given his other underlying medical comorbidities for potential for severe infection from COVID-19. 12. Atrial flutter * transient. Likely exacerbated by septic shock and multiple other medical issues. * currently in NSR 13. Prognosis: guraded to poor. Charges/Coding Visit Charges Inpatient E&M: 63843 Subs Hosp L3
--- NOTE | 2021-08-05 08:47 | PN.CARD_ITS ---
Subjective Subjective The patient is awake and alert. He denies any ongoing chest discomforts, worsening shortness of breath/dyspnea, or palpitations. Objective Data Vital Signs: Vital Signs Temp Pulse Resp BP Pulse Ox 97.6 F L 78 21 H 108/48 L 93 08/05/21 00:00 08/05/21 06:59 08/05/21 06:00 08/05/21 06:00 08/05/21 07:44 Oxygen Flow Rate (L/min) 12 Oxygen Delivery Method High Flow Weight: 171 lb 11.841 oz Body Mass Index (BMI) 23.1 Intake & Output: Intake and Output for Last 24 Hours 08/03/21 08/04/21 08/05/21 23:59 23:59 23:59 Intake Total 4013.57 / 4141.07 2343.86 / 2443.86 650.83 / 650.83 Output Total 420 / 870 1375 / 1675 550 / 550 Balance 3593.57 / 3271.07 968.86 / 768.86 100.83 / 100.83 Lab / Micro Data Result Diagrams: 08/05/21 03:35 08/05/21 03:35 Labs: Laboratory Results - last 24 hr 08/04/21 04:27: Lactate Dehydrogenase 330 H 08/04/21 11:00: Lactic Acid 2.3 H* 08/05/21 03:35: WBC 11.0, RBC 2.64 L, Hgb 10.1 L, Hct 28.2 L, MCV 106.8 H, MCH 38.3 H, MCHC 35.8, RDW Std Deviation 64.6 H, RDW Coeff of Belinda 16.8 H, Plt Count 44 L*, MPV 9.8, Immature Gran % (Auto) 0.800, Neut % (Auto) 86.0 H, Lymph % (Auto) 6.8 L, [place] % (Auto) 6.2, Eos % (Auto) 0.0, Baso % (Auto) 0.2, Absolute Neuts (auto) 9.4 H, Absolute Lymphs (auto) 0.75 L, Nucleated RBC % 0, Differenti al Comment SCANNED, Diff Path Review August foll, Toxic Vacuolation 1+, Platelet Estimate MKD 08/05/21 03:35: Sodium 136, Potassium 5.1, Chloride 104, Carbon Dioxide 27.0, Anion Gap 5, BUN 60 H, Creatinine 1.83 H, Estim Creat Clear Calc 41.00, Est GFR (MDRD) Af Amer 48 L, Est GFR (MDRD) Non-Af 40 L, BUN/Creatinine Ratio 32.8 H, Glucose 202 H, Calcium 10.2 H, Total Bilirubin 13.90 H, AST 69 H, ALT 76 H, Alkaline Phosphatase 141 H, Total Protein 5.6 L, Albumin 3.5, Globulin 2.1 L, Albumin/Globulin Ratio 1.7 Micro: Microbiology 08/03/21 16:00 Urine Catheter - Parker Urine Culture - Final Staphylococcus aureus 08/03/21 08:38 Blood Culture (Wb) - Anticubital Left Bacteria Detection (PCR) - Final Staphylococcus aureus 08/03/21 08:38 Blood Culture (Wb) - Anticubital Left Blood Culture - Final Staphylococcus aureus 08/04/21 08:10 Blood Culture (Wb) - Anticubital Left Blood Culture - Preliminary 08/04/21 08:00 Blood Culture (Wb) - Pic Blood Culture - Preliminary 08/03/21 08:04 Blood Culture (Wb) - Anticubital Right Blood Culture - Final Staphylococcus aureus ABG Data ABG results: ABG 08/04/21 11:56 Specimen Type ART Sample Site R Radial pH 7.45 Bicarbonate Actual 24.4 Total CO2 25 Base Excess 0 O2 Saturation 94 L ABG pCO2 34.8 L ABG pO2 68 L Art Test Positive O2 Delivery Device Cannula Liter Flow 6.0 Cardiology Labs/Tests 08/04/21 11:00: Lactic Acid 2.3 H* 08/04/21 11:56: pH 7.45, Bicarbonate Actual 24.4, Base Excess 0, O2 Saturation 94 L, ABG pCO2 34.8 L, ABG pO2 68 L, Art Test Positive 08/05/21 03:35: WBC 11.0, RBC 2.64 L, Hgb 10.1 L, Hct 28.2 L, MCV 106.8 H, MCH 38.3 H, MCHC 35.8, Plt Count 44 L*, MPV 9.8, Immature Gran % (Auto) 0.800, Neut % (Auto) 86.0 H, Lymph % (Auto) 6.8 L, [place] % (Auto) 6.2, Eos % (Auto) 0.0, Baso % (Auto) 0.2, Absolute Neuts (auto) 9.4 H, Nucleated RBC % 0 08/05/21 03:35: Sodium 136, Potassium 5.1, Chloride 104, Carbon Dioxide 27.0, Anion Gap 5, BUN 60 H, Creatinine 1.83 H, Est GFR (MDRD) Af Amer 48 L, Est GFR (MDRD) Non-Af 40 L, BUN/Creatinine Ratio 32.8 H, Glucose 202 H, Calcium 10.2 H, Total Bilirubin 13.90 H Rhythm: Sinus rhythm EKG: Atrial fibrillation with slow ventricular response Radiography Diagnostic Testing: Radiology Impression Abdomen Ultrasound 08/04/21 10:45 IMPRESSION: Cirrhosis with a small amount of ascites and moderate splenomegaly from portal hypertension. Electronically Signed: Kwesi Davis MD at 12:26 EDT , Chest X-Ray 08/05/21 03:40 IMPRESSION: Right mid to lower lung consolidation and left perihilar consolidation compatible with multifocal pneumonia. Right upper extremity PICC remains. Electronically Signed: Roberto Gupta MD at 3:58 EDT , Physical Exam Narrative This is a 65-year-old jaundiced and weak appearing male. Const alert and oriented x3 Orientation / Consciousness: awake HEENT normocephalic, head/scalp atraumatic and hearing grossly normal bilaterally Eyes Eyes Narrative: Sclera: Positive icterus Neck full ROM, supple and no JVD Resp Resp Narrative: Diminished respiratory effort Auscultation: wheezes scattered wheezes Cardio regular rate, regular rhythm, S1 normal heart sound and S2 normal heart sound GI GI Narrative: Somewhat distended appearing: Positive bowel sounds Extremity no pedal edema Skin Skin Narrative: Jaundiced appearing Neuro oriented x3, moves all extremities, no focal motor deficits and no sensory deficits noted Psych Psych Narrative: Affect: Flat Assessment & Plan Assessment/Plan (1) Elevated troponin: PLAN: The patient does have findings of an elevated troponin I level. At the present time this is thought to be related to a type II event secondary to his noncardiovascular comorbidities including concerns such as his sepsis. At the present time the patient has undergone noninvasive evaluation as noted. The patient does not appear to be an ideal candidate for invasive cardiovascular evaluation such as diagnostic cardiac catheterization based upon his ongoing multiple noncardiac comorbidities and hematologic abnormalities and renal insufficiency, etc. Thus the patient should continue medical management for his multiple noncardiac comorbidities and additional cardiovascular diagnoses as deemed appropriate. (2) Atrial fibrillation and flutter: PLAN: The patient had paroxysmal atrial fibrillation/flutter. The patient had spontaneous conversion to sinus rhythm. He was then noted to return to atrial fibrillation. He was treated with digitalis 0.5 mg IV push x1. He was reported as having subsequent slowing of his ventricular rate. Earlier this morning he was reported, during a bowel movement, to appear to have demonstrated a vasovagal type event with slowing of his ventricular rate followed by a pause followed by spontaneous conversion to sinus rhythm. He is remaining in sinus rhythm at this time with his rate within normal ranges. (3) Bacteremia: PLAN: He is under going evaluation and care for concerns of bacteremia. (4) Acute alcoholic hepatitis: PLAN: He does have a history of what is thought to be alcoholic hepatitis. His hepatic transaminases were elevated. They appear to be decreasing somewhat. He continues evaluation care as noted above. (5) Cirrhosis: PLAN: He does have a history of cirrhosis. This appears to be secondary to his alcoholic intake. He is undergoing evaluation care by internal medicine as well as pulmonology/critical care medicine. He may need additional evaluation care per gastroenterology/hepatology. (6) Elevated INR: PLAN: His INR is elevated thought secondary to his underlying hepatic insufficiency. This does need to be monitored. If his INR corrects and he has continued evidence of atrial dysrhythmias then he may need to be considered for some form of anticoagulant therapy if deemed safe based upon his multiple comorbidities. (7) Thrombocytopenia: PLAN: He does have thrombocytopenia thought it was underlying hepatic insufficiency. This would pose a concern with respect to attempting invasive evaluation or care as well as potentially anticoagulant therapy. (8) ROLAND (acute kidney injury): PLAN: His renal and patient's he does to be monitored and taken into consideration with adjustment of medications. (9) Hypertension: PLAN: At the time he is hypotensive not secondary to his underlying bacteremia/sepsis syndrome. He has been placed on midodrine therapy. His blood pressure appears to have improved to the point where his IV vasopressor has been discontinued Addt'l Comments Overall, from a cardiac standpoint, he will continue to be monitored and treated medically as needed. This note was generated using a voice recognition system and there may be incorrect words, spelling or punctuation that were not noted when reviewing the office note prior to saving.
[2021-08-05 10:11] LABS: Absolute Lymphocyte Count 0.75 X10^3/uL (0.83-4.51); Absolute Neutrophil Count 9.1 X10^3/uL (2.0-7.7); Basophil# 0.03 X10^3/uL; Basophil% 0.3 % (0-1); Hematocrit 26.7 % (40-54); Hemoglobin 9.4 g/dL (13.0-16.5); Lymphocyte # 0.75 X10^3/ul (0.83-4.51); Mean Corp Hgb Conc 35.2 g/dL (32-36); Mean Corpuscular Hgb 37.9 pg (27.0-32.0); Mean Corpuscular Volume 107.7 fL (80-94); Mean Platelet Vol. 11.5 fl (6.2-12.0); Monocyte# 0.63 X10^3/uL; Monocyte% 5.9 % (0-10); NRBC Flagged by Analyzer 0 % (0-5); Neutrophil # 9.13 X10^3/uL (2.7-7.7); Neutrophil % 85.4 % (47-70); POSITIVE COUNT YES; POSITIVE MORPHOLOGY YES; RBC Distribution Width CV 16.4 % (11.6-14.6); RBC Distribution Width SD 64.3 fl (35.1-43.9); Red Blood Count 2.48 M/mm3 (4.6-6.2); White Blood Count 10.7 K/mm3 (4.4-11.0)
[2021-08-05 10:19] LABS: Platelet Count 42 K/mm3 (150-450)
[2021-08-05 10:24] LABS: Differential Indicated SCAN CRITERIA MET
[2021-08-05 10:44] LABS: Differential Comment SCANNED; Platelet Estimate MKD DEC (ADEQ)
[2021-08-05 11:11] LABS: Prothrombin Time (Protime)PT. 40.5 SECONDS (11.7-14.9)
[2021-08-05 11:13] LABS: International Normalized Ratio 4.2
[2021-08-05 11:51] LABS: Allen Test Positive; Base Excess 1 mmol/L (-2 to +2); Bicarbonate 25.3 mmol/L (22-26); Blood Gas Specimen Type ART; O2 Delivery Device Cannula; PO2 43 mmHG (75-100); SITE R Radial; SO2 81 % (95-99); Total Carbon Dioxide 26 mmol/L; pCO2 35.9 mmHg (35-45); pH 7.46 (7.35-7.45)
[2021-08-05 12:02] LABS: Lactic Acid 3.2 mmol/L (0.4-1.9)
--- NOTE | 2021-08-05 14:00 | PN.HOSP_ITS ---
Hospitalist Note Advance care planning, spent an additional 30 minutes in which I discussed with patient and his family about transfer for evaluation for possible transplantation in regards to fulminant liver failure. Did explain to them that its not definitive by any means that he would even qualify for a transplant but it would is our recommendation that he be transferred for evaluation. With the caveat that he would likely need to change his CODE STATUS. I told him that there would be a limitation in regards to what could be done for him if he does not want to be intubated. I told him that it is ultimately his decision and we will respect his decision but if he does not want to be intubated, which is his right, then we should not transfer. I let he and his family discussed that over and he did change his mind to being open to intubation. I then touch base with him about CPR as a previous that he did not want CPR and he was unsure. He later notified the nurse that he wished to have CPR in the event of cardiopulmonary arrest. Therefore the patient's CODE STATUS to be changed to full CODE STATUS. I did reach out to [facility] about the patient and spoke with a Dr. Doherty and explained the case with her. She was ICU physician. Patient has been accepted but the caveat is there is no readily available beds in the [facility] so is unclear when he could be transferred. I did inform the patient and his family before that it is possible could be days out before he could be transferred. Procedures Hospitalists Procedures: [id number] Advncd Care Plan 30 Min
--- NOTE | 2021-08-05 14:51 | DS.PCM_ITS ---
Providers Date of Admission: 08/03/21 Primary Care Physician: Dr. Julio Underwood DO Consultations 08/03/21 14:12 Consult: [facility] / Pulmonary Medicine Routine Consulting Provider: Pulmonary Medicine [facility] [place] Reason for Consult: septic shock EMERGENT Consult: No Notified: Yes Date Notified: 08/03/21 Time Notified: 14:01 Method of Notification: Text 08/04/21 07:28 Consult: Gastroenterology Routine Consulting Provider: [facility] Reason for Consult: cirrhosis EMERGENT Consult: No Notified: Yes Date Notified: 08/04/21 Time Notified: 07:28 Method of Notification: Verbal 08/04/21 09:00 Consult: Cardiology Routine Consulting Provider: Roberto Bravo Reason for Consult: new onset aflutter EMERGENT Consult: No Notified: Yes Date Notified: 08/04/21 Time Notified: 09:00 Method of Notification: Text Method of Consult:: In-Person Reason For Visit: sepsis,pneumonia,hematuria,roland hypoxia,alcoholic Diagnosis Discharge Diagnosis (1) Elevated INR: Status: Acute Code(s): R79.1 - Abnormal coagulation profile (2) Acute alcoholic hepatitis: Status: Acute Code(s): K70.10 - Alcoholic hepatitis without ascites (3) Pneumonia: Status: Acute Code(s): J18.9 - Pneumonia, unspecified organism Qualifiers: Pneumonia type: due to unspecified organism Laterality: bilateral Lung location: lower lobe of lung Qualified Code(s): J18.9 - Pneumonia, unspecified organism (4) Elevated troponin: Status: Acute Code(s): R77.8 - Other specified abnormalities of plasma proteins (5) ROLAND (acute kidney injury): Status: Acute Code(s): N17.9 - Acute kidney failure, unspecified (6) Septic shock: Status: Acute Code(s): A41.9 - Sepsis, unspecified organism; R65.21 - Severe sepsis with septic shock (7) Bacteremia: Status: Acute Code(s): R78.81 - Bacteremia Medications at Discharge Home Medications lactulose 20 gram/30 mL oral solution 20 g PO BID #3000 ml 07/02/21 prednisone 10 mg tablet See Rx Instructions PO DAILY #60 tab 07/09/21 carvedilol 6.25 mg tablet 6.25 mg PO BID #60 tab 07/18/21 furosemide 40 mg tablet 40 mg PO DAILY #30 tab 07/18/21 pantoprazole 40 mg tablet,delayed release 40 mg PO BID #60 tab 07/18/21 spironolactone 50 mg tablet 50 mg PO DAILY #30 tab 07/18/21 sucralfate 100 mg/mL oral suspension 10 ml PO Q6H 28 Days #1120 ml 07/31/21 Hospital Course Procedures 2-D Echocardiogram Summary of Care Provided Minutes Spent on Discharge: 60 Hospital Course: Eecbfzb-cuzl-ezo male presents with weakness. Found to be in septic shock from pneumonia and MSSA bacteremia. Complicated by atrial flutter now normal sinus rhythm but also concerning for what may be fulminant hepatic failure. Patient has been accepted to [facility] and awaiting on bed. Timing of bed availability is unknown at the time of this dictation. Patient initially had CODE STATUS of DNR Comfort Care arrest no intubation. But wanted became clear that patient was developing fulminant hepatic failure, is further discussed with the patient about advanced directives because if he wished to continue with his CODE STATUS that he may not be advised to proceed with evaluation as it would limit capacity to adequately care for him. Patient initially was open intubation and then wished to be completely full code thereafter. Spoke with [facility] and patient was accepted. 1. Septic shock 2/2 pneumonia and bacteremia (UA unremarkable for infection) qSOFA of 2 received 30 cc/kg of IV in ED and was normotensive, only to drop again once he got to the PCU. Subsequently, transferred to ICU. weaned off norepinephrine cannot rule out component of adrenal insufficiency given his long-term steroid use (since May). Continue Hydrocortisone. 2. Pneumonia Presumed pneumococcal CXR showed worsening infiltrate/edema. CTX changed to pip/tazo. Urinary antigen Streptococcus Legionella negative 3. Staph aureus bacteremia MSSA unclear source repeat BCx pending 2d echo did not show any vegetations DC Vancomycin 4. Acute kidney injury Likely prerenal +/- HRS. Continue with IV fluids Consider additional studies if no improvement or worsening. 5. Elevated troponins Suspect due to demand, type II event Patient not a candidate for aspirin or antiplatelet medications given his severe thrombocytopenia 2D echo shows EF 70% Patient is not a candidate for a cardiac catheterization given his multiple medical comorbidities. 6. 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 Babin. MELD 33 with a 3 month mortality of 52.6%. Child Dominguez 13 Albumin 50g IV Q6h, octreotide gtt, midodrine, rifaximin. Abd US showed cirrhosis Pt received vitamin K, but despite that INR has gone up to 4.[address] Babin, he is concerned for fulminant liver failure and recommends transfer to [facility]. Will check ammonia, lactate and ABG. DW family about transfer prior. 7. Acute hypoxic respiratory failure 2/2 suspected pneumonia but also CHF overall 4.7 liters positive off IVF did receive 40 mg of IV furosemide this AM. Hold off on scheduled furosemide given tenuous BP. 8. Thrombocytopenia Secondary to cirrhosis and probable splenomegaly Chronic 9. VTE prophylaxis Hold chemical prophylaxis is contraindicated with thrombocytopenia SCDs 10. CODE STATUS Addressed with the patient. Patient wishes to be DNR Comfort Care arrest no intubation 11. COVID-19, unvaccinated Patient denies any recent exposure to any with COVID-19 and that he himself denies ever having had COVID-19. Patient at higher risk given his other underlying medical comorbidities for potential for severe infection from COVID-19. 12. Atrial flutter transient. Likely exacerbated by septic shock and multiple other medical issues. currently in NSR 13. Prognosis: guraded to poor. Weight / BMI Weight Weight: 77.9 kg Body Mass Index (BMI) 23.1 ABG / Lab / Microbiology Data Result Diagrams: 08/05/21 08:50 08/05/21 03:35 Laboratory: Laboratory Results - last 24 hr 08/05/21 03:35: WBC 11.0, RBC 2.64 L, Hgb 10.1 L, Hct 28.2 L, MCV 106.8 H, MCH 38.3 H, MCHC 35.8, RDW Std Deviation 64.6 H, RDW Coeff of Belinda 16.8 H, Plt Count 44 L*, MPV 9.8, Immature Gran % (Auto) 0.800, Neut % (Auto) 86.0 H, Lymph % (Auto) 6.8 L, [place] % (Auto) 6.2, Eos % (Auto) 0.0, Baso % (Auto) 0.2, Absolute Neuts (auto) 9.4 H, Absolute Lymphs (auto) 0.75 L, Nucleated RBC % 0, Differential Comment SCANNED, Diff Path Review May horacio, Toxic Vacuolation 1+, Platelet Estimate D 08/05/21 03:35: Sodium 136, Potassium 5.1, Chloride 104, Carbon Dioxide 27.0, Anion Gap 5, BUN 60 H, Creatinine 1.83 H, Estim Creat Clear Calc 41.00, Est GFR (MDRD) Af Amer 48 L, Est GFR (MDRD) Non-Af 40 L, BUN/Creatinine Ratio 32.8 H, Glucose 202 H, Calcium 10.2 H, Total Bilirubin 13.90 H, AST 69 H, ALT 76 H, Alkaline Phosphatase 141 H, Total Protein 5.6 L, Albumin 3.5, Globulin 2.1 L, Albumin/Globulin Ratio 1.7 08/05/21 08:50: WBC 10.7, RBC 2.48 L, Hgb 9.4 L, Hct 26.7 L, MCV 107.7 H, MCH 37.9 H, MCHC 35.2, RDW Std Deviation 64.3 H, RDW Coeff of Belinda 16.4 H, Plt Count 42 L*, MPV 11.5, Immature Gran % (Auto) 1.400 H, Neut % (Auto) 85.4 H, Lymph % (Auto) 7.0 L, [place] % (Auto) 5.9, Eos % (Auto) 0.0, Baso % (Auto) 0.3, Absolute Neuts (auto) 9.1 H, Absolute Lymphs (auto) 0.75 L, Nucleated RBC % 0, Differential Comment SCANNED, Diff Path Review May horacio, Platelet Estimate MKD 08/05/21 10:50: PT 40.5 H, INR 4.2 H* 08/05/21 11:10: Ammonia 27.0 08/05/21 11:10: Lactic Acid 3.2 H* Microbiology: Microbiology 08/04/21 08:10 Blood Culture (Wb) - Anticubital Left Blood Culture - Preliminary 08/04/21 08:00 Blood Culture (Wb) - Pic Blood Culture - Preliminary Staphylococcus aureus 08/03/21 16:00 Urine Catheter - Parker Urine Culture - Final Staphylococcus aureus 08/03/21 08:38 Blood Culture (Wb) - Anticubital Left Bacteria Detection (PCR) - Final Staphylococcus aureus 08/03/21 08:38 Blood Culture (Wb) - Anticubital Left Blood Culture - Final Staphylococcus aureus 08/03/21 08:04 Blood Culture (Wb) - Anticubital Right Blood Culture - Final Staphylococcus aureus 08/03/21 16:00 Urine Catheter - Parker Legionella Antigen - Final 08/03/21 16:00 Urine Catheter - Parker Streptococcus pneumoniae Antigen (M - Final ABG: ABG 08/05/21 11:44 Specimen Type ART Sample Site R Radial pH 7.46 H Bicarbonate Actual 25.3 Total CO2 26 Base Excess 1 O2 Saturation 81 L ABG pCO2 35.9 ABG pO2 43 L Art Test Positive O2 Delivery Device Cannula Liter Flow 15.0 Radiography Diagnostic Testing: Radiology Impression Chest X-Ray 08/05/21 03:40 IMPRESSION: Right mid to lower lung consolidation and left perihilar consolidation compatible with multifocal pneumonia. Right upper extremity PICC remains. Electronically Signed: Roberto Gupta MD at 3:58 EDT , Meaningful Use Info Meaningful Use Diagnoses (Choose all that apply): None applicable Discharge Plan Admission Admit Date/Time: 08/03/21 12:07 Attending Provider: Lj Christian Primary Care Provider: Julio Underwood Consulting Providers: Kunal Prince ; Junior Barbosa ; Henny Ennis NP ; Roberto Bravo Discharge Orders/Prescriptions Prescriptions: No Action lactulose 20 gram/30 mL solution 20 g PO BID Qty: 3000 RF: 1 prednisone 10 mg tablet See Rx Instructions PO DAILY Qty: 60 RF: 0 spironolactone 50 mg tablet 50 mg PO DAILY Qty: 30 RF: 6 furosemide 40 mg tablet 40 mg PO DAILY Qty: 30 RF: 6 pantoprazole [Protonix] 40 mg tablet,delayed release (DR/EC) 40 mg PO BID Qty: 60 RF: 6 carvedilol 6.25 mg tablet 6.25 mg PO BID Qty: 60 RF: 6 sucralfate [Carafate] 100 mg/mL suspension 10 ml PO Q6H 28 Days Qty: 1120 RF: 0 Referrals / Follow Up: Julio Underwood DO [Primary Care Provider] - Disposition Disposition (needs filled in before D/C Order can be placed): Acute Care Hospital Charges/Coding Visit Charges Inpatient E&M: 53863 Disch Hosp
--- NOTE | 2021-08-05 15:08 | NURSING ---
attempted break from bipap on ventimask 12L 50%, within approx 5 minutes patient's O2 sats dropped to 78%, placed back on bipap 100% for recovery, within several minutes O2 sats back up to 92% on 60% FiO2.
[2021-08-05 15:34] LABS: Reflex Lactate? Y
[2021-08-05 18:35] LABS: Vancomycin, Trough Level 21.1 ug/mL (5.0-15.0)
[2021-08-06] VITALS (35 sets, daily range): BP systolic 108–149; BP diastolic 55–96; PULSE 70–105; RESP 12–27; TEMP 36.3–36.9; O2SAT 92–100
[2021-08-06] MEDS: LORazepam 2 MG/ML Syringe 0.5 MG IV (01:24)
[2021-08-06 04:48] LABS: Absolute Lymphocyte Count 0.61 X10^3/uL (0.83-4.51); Absolute Neutrophil Count 10.8 X10^3/uL (2.0-7.7); Basophil# 0.03 X10^3/uL; Basophil% 0.2 % (0-1); Eosinophil# 0.02 X10^3/uL; Eosinophils% 0.2 % (0-5); Hematocrit 29.3 % (40-54); Hemoglobin 10.3 g/dL (13.0-16.5); Lymphocyte # 0.61 X10^3/ul (0.83-4.51); Mean Corp Hgb Conc 35.2 g/dL (32-36); Mean Corpuscular Hgb 38.4 pg (27.0-32.0); Mean Corpuscular Volume 109.3 fL (80-94); Mean Platelet Vol. 11.8 fl (6.2-12.0); Monocyte# 0.63 X10^3/uL; Monocyte% 5.1 % (0-10); NRBC Flagged by Analyzer 0 % (0-5); Neutrophil # 10.82 X10^3/uL (2.7-7.7); Neutrophil % 88.1 % (47-70); POSITIVE COUNT YES; POSITIVE MORPHOLOGY YES; Platelet Count 42 K/mm3 (150-450); RBC Distribution Width CV 16.7 % (11.6-14.6); RBC Distribution Width SD 66.5 fl (35.1-43.9); Red Blood Count 2.68 M/mm3 (4.6-6.2); White Blood Count 12.3 K/mm3 (4.4-11.0)
[2021-08-06 05:03] LABS: International Normalized Ratio 3.9; Prothrombin Time (Protime)PT. 37.8 SECONDS (11.7-14.9)
[2021-08-06 05:05] LABS: Differential Indicated SCAN CRITERIA MET
[2021-08-06 05:12] LABS: ALB/GLOB Ratio 1.7 RATIO (0.9-2.4); AST(SGOT) 65 U/L (15-37); Alanine Aminotransfer ALT/SGPT 66 U/L (16-61); Albumin, Serum 3.2 g/dL (3.2-5.0); Alkaline Phosphatase 130 U/L (45-117); Anion Gap 8 (5-15); BUN 79 mg/dL (7-18); BUN/Creat Ratio 36.6 RATIO (10-20); Calcium,Total 10.9 mg/dL (8.5-10.1); Chloride 106 mmol/L (98-107); Creatinine, Serum 2.16 mg/dL (0.70-1.30); EST Glomerular Filtration Rate 33 mL/min (>60); Est Glom Filt Rate - Afr Amer 40 mL/min (>60); Estimated Creatinine Clearance 34.74 ml/min; Globulin 1.9 g/dL (2.2-4.2); Glucose 192 mg/dL (74-106); Potassium 5.3 mmol/L (3.5-5.1); Protein, Total 5.1 g/dL (6.4-8.2); Sodium Level 141 mmol/L (136-145)
[2021-08-06 05:20] LABS: Platelet Estimate MKD DEC (ADEQ)
--- NOTE | 2021-08-06 05:41 | PCM.PN.INT ---
Assessment & Plan Assessment/Plan (1) Cirrhosis: (2) Septic shock: PLAN: RECOMMENDATIONS: 1. Continue BiPAP therapy and wean FiO2 for saturations greater than 90%. 2. Continue antimicrobials as ordered. 3. Continue octreotide infusion. 4. Continue lactulose and rifaximin. 5. Continue steroids and scheduled midodrine. 6. Avoid sedating medications, including Ativan. 7. The patient will need to be made n.p.o., pending improvement in his mental state. 8. Awaiting transfer to [facility]. IMPRESSIONS: 1. Acute alcoholic hepatitis/decompensated cirrhosis The patient has a known history of cirrhosis and esophageal varices status post banding. He has an elevated meld score with associated anemia, thrombocytopenia and coagulopathy. The patient has already been evaluated by gastroenterology and is currently on appropriate medications. However, he remains coagulopathic with worsening hyperbilirubinemia. Plan to continue current medical management while awaiting bed availability at [facility] for transfer. 2. Septic shock The patient presented to the hospital with sepsis secondary to multifocal pneumonia and questionable SBP. The patient did transiently require vasopressor support. He remains on broad-spectrum antimicrobials. Hemodynamics remain somewhat tenuous due to his underlying liver disease. 3. Acute hypoxemic respiratory failure Likely secondary to underlying pneumonia. The patient's volume status will also be difficult to control in light of his underlying liver and renal disease. The patient has not tolerated a significant amount of time off of BiPAP therapy. We will plan to obtain an arterial blood gas this morning. In the interim, continue to wean FiO2 as tolerated for saturations greater than 90%. Continue antimicrobials as noted above. 4. Encephalopathy Likely metabolic in etiology. I would strongly advise against utilization of sedative medications in this patient, including Ativan. Obtain arterial blood gases noted above. Continue lactulose and rifaximin. Continue to monitor ammonia level. 5. Anemia/thrombocytopenia/coagulopathy Secondary to underlying liver disease. The patient is awaiting transfer to [facility] for transplant evaluation. 6. Acute kidney injury Differential would include ATN or hepatorenal syndrome. Creatinine has risen today. Continue to monitor for now. If renal function continues to worsen, will need to obtain nephrology consultation. TIME: 34 minutes of critical care time, independent of procedures, was spent addressing the patient's acute alcoholic hepatitis/decompensated cirrhosis, septic shock, acute hypoxemic respiratory failure, encephalopathy, thrombocytopenia, coagulopathy, review of all data and collaboration with the care team. Subjective Subjective The patient was seen and examined at the bedside this morning. Events from the last 24 hours have been reviewed. The patient is currently afebrile, hemodynamically stable and maintaining appropriate oxygen saturations on BiPAP with an FiO2 requirement of 45%. The patient is currently documented to be overall net +4 L for the hospitalization. Platelet count remains low at 42,000. INR this morning was noted to be 3.9. Potassium is elevated at 5.3 with a creatinine of 2.16. Total bili has increased to 20. The patient remains on an octreotide infusion along with antimicrobials, lactulose, rifaximin and midodrine. The patient was apparently anxious last night and was given a one-time dose of IV Ativan. This morning, the patient is quite lethargic. He is unable to tolerate any significant breaks from BiPAP therapy. The patient is awaiting transfer to [facility] in light of his fulminant liver failure. However, a bed has yet to become available. Objective Data Objective Data The patient's most recent lab work, culture data and imaging studies have all been personally reviewed. Surface echocardiogram dated August 03 demonstrated normal LV size and function with an ejection fraction of 70%. RVSP was unable to be estimated. Blood cultures remain positive for MSSA. Vital Signs: Vital Signs Temp Pulse Resp BP Pulse Ox 97.4 F L 89 22 H 133/67 H 94 08/06/21 04:00 08/06/21 04:08 08/06/21 04:08 08/06/21 04:00 08/06/21 04:08 Oxygen Flow Rate (L/min) 12 Oxygen Delivery Method Bi-pap Weight: 77.9 kg Body Mass Index (BMI) 23.1 Intake & Output: Intake and Output for Last 24 Hours 08/04/21 08/05/21 08/06/21 23:59 23:59 23:59 Intake Total 2343.86 / 2443.86 950.83 / 1100.83 150 / 150 Output Total 1375 / 1675 1200 / 1675 475 / 475 Balance 968.86 / 768.86 -249.17 / -574.17 -325 / -325 Lab / Micro Data Attestation: I reviewed the patient's lab results. Result Diagrams: 08/06/21 04:30 08/06/21 04:30 Labs: Laboratory Results - last 24 hr 08/05/21 08:50: WBC 10.7, RBC 2.48 L, Hgb 9.4 L, Hct 26.7 L, MCV 107.7 H, MCH 37.9 H, MCHC 35.2, RDW Std Deviation 64.3 H, RDW Coeff of Belinda 16.4 H, Plt Count 42 L*, MPV 11.5, Immature Gran % (Auto) 1.400 H, Neut % (Auto) 85.4 H, Lymph % (Auto) 7.0 L, [place] % (Auto) 5.9, Eos % (Auto) 0.0, Baso % (Auto) 0.3, Absolute Neuts (auto) 9.1 H, Absolute Lymphs (auto) 0.75 L, Nucleated RBC % 0, Differential Comment SCANNED, Diff Path Review August horacio Platelet Estimate [facility] 08/05/21 10:50: PT 40.5 H, INR 4.2 H* 08/05/21 11:10: Ammonia 27.0 08/05/21 11:10: Lactic Acid 3.2 H* 08/05/21 18:00: Vancomycin Trough 21.1 H 08/06/21 04:30: WBC 12.3 H, RBC 2.68 L, Hgb 10.3 L, Hct 29.3 L, MCV 109.3 H, MCH 38.4 H, MCHC 35.2, RDW Std Deviation 66.5 H, RDW Coeff of Belinda 16.7 H, Plt Count 42 L*, MPV 11.8, Immature Gran % (Auto) 1.400 H, Neut % (Auto) 88.1 H, Lymph % (Auto) 5.0 L, [place] % (Auto) 5.1, Eos % (Auto) 0.2, Baso % (Auto) 0.2, Absolute Neuts (auto) 10.8 H, Absolute Lymphs (auto) 0.61 L, Nucleated RBC % 0, Diff Path Review August horacio Platelet Estimate [facility] 08/06/21 04:30: Sodium 141, Potassium 5.3 H, Chloride 106, Carbon Dioxide 27.0, Anion Gap 8, BUN 79 H, Creatinine 2.16 H, Estim Creat Clear Calc 34.74, Est GFR (MDRD) Af Amer 40 L, Est GFR (MDRD) Non-Af 33 L, BUN/Creatinine Ratio 36.6 H, Glucose 192 H, Calcium 10.9 H, Total Bilirubin 20.50 H*, AST 65 H, ALT 66 H, Alkaline Phosphatase 130 H, Total Protein 5.1 L, Albumin 3.2, Globulin 1.9 L, Albumin/Globulin Ratio 1.7 08/06/21 04:30: PT 37.8 H, INR 3.9 Micro: Microbiology 08/04/21 08:10 Blood Culture (Wb) - Anticubital Left Blood Culture - Preliminary 08/04/21 08:00 Blood Culture (Wb) - Pic Blood Culture - Preliminary Staphylococcus aureus 08/03/21 16:00 Urine Catheter - Parker Urine Culture - Final Staphylococcus aureus 08/03/21 08:38 Blood Culture (Wb) - Anticubital Left Bacteria Detection (PCR) - Final Staphylococcus aureus 08/03/21 08:38 Blood Culture (Wb) - Anticubital Left Blood Culture - Final Staphylococcus aureus 08/03/21 08:04 Blood Culture (Wb) - Anticubital Right Blood Culture - Final Staphylococcus aureus 08/03/21 16:00 Urine Catheter - Parker Legionella Antigen - Final 08/03/21 16:00 Urine Catheter - Parker Streptococcus pneumoniae Antigen (M - Final ABG Data ABG results: ABG 08/05/21 11:44 Specimen Type ART Sample Site R Radial pH 7.46 H Bicarbonate Actual 25.3 Total CO2 26 Base Excess 1 O2 Saturation 81 L ABG pCO2 35.9 ABG pO2 43 L Art Test Positive O2 Delivery Device Cannula Liter Flow 15.0 Physical Exam Const Constitutional Narrative: Jaundice in appearance General Appearance: lethargic, ill appearing and on BiPAP HEENT normocephalic and head/scalp atraumatic Eyes PERRL Sclera: sclera abnormal Neck supple General: trachea midline Resp normal respiratory effort Auscultation: Negative for rales, rhonchi or wheezes Cardio regular rate and regular rhythm GI soft to palpation Inspection: abdominal distention Extremity General Extremity: edema bilateral lower extremity Skin no rashes or lesions noted Neuro Sensorium / Orientation: lethargic Psych Mood & Affect: flat affect Charges/Coding Procedures Hospitalists Procedures: 48164 Critial Care 1st Hr
[2021-08-06] MEDS: Hydrocortisone Sod Succinate 100 MG/2 ML Vial 50 MG IV ×4 (06:15→23:21)
[2021-08-06] MEDS: 0.9% Saline Lock 10 ML Syringe IV (06:16)
--- NOTE | 2021-08-06 07:16 | PN.HOSP_ITS ---
Subjective Subjective Follow-up for septic shock secondary to bacteremia and possible pneumonia. Objective Data Objective Data Vital Signs: Vital Signs Temp Pulse Resp BP Pulse Ox 97.4 F L 87 22 H 131/61 H 97 08/06/21 04:00 08/06/21 06:00 08/06/21 06:00 08/06/21 06:00 08/06/21 06:00 Oxygen Flow Rate (L/min) 12 Oxygen Delivery Method Bi-pap Weight: 169 lb 15.622 oz Body Mass Index (BMI) 23.1 Intake & Output: Intake and Output for Last 24 Hours 08/04/21 08/05/21 08/06/21 23:59 23:59 23:59 Intake Total 2343.86 / 2443.86 950.83 / 1100.83 451 / 451 Output Total 1375 / 1675 1200 / 1675 1075 / 1075 Balance 968.86 / 768.86 -249.17 / -574.17 -624 / -624 Lab / Micro Data Result Diagrams: 08/06/21 04:30 08/06/21 04:30 Labs: Laboratory Results - last 24 hr 08/05/21 08:50: WBC 10.7, RBC 2.48 L, Hgb 9.4 L, Hct 26.7 L, MCV 107.7 H, MCH 37.9 H, MCHC 35.2, RDW Std Deviation 64.3 H, RDW Coeff of Belinda 16.4 H, Plt Count 42 L*, MPV 11.5, Immature Gran % (Auto) 1.400 H, Neut % (Auto) 85.4 H, Lymph % (Auto) 7.0 L, [place] % (Auto) 5.9, Eos % (Auto) 0.0, Baso % (Auto) 0.3, Absolute Neuts (auto) 9.1 H, Absolute Lymphs (auto) 0.75 L, Nucleated RBC % 0, Differential Comment SCANNED, Diff Path Review August horacio, Platelet Estimate MKD 08/05/21 10:50: PT 40.5 H, INR 4.2 H* 08/05/21 11:10: Ammonia 27.0 08/05/21 11:10: Lactic Acid 3.2 H* 08/05/21 18:00: Vancomycin Trough 21.1 H 08/06/21 04:30: WBC 12.3 H, RBC 2.68 L, Hgb 10.3 L, Hct 29.3 L, MCV 109.3 H, MCH 38.4 H, MCHC 35.2, RDW Std Deviation 66.5 H, RDW Coeff of Belinda 16.7 H, Plt Count 42 L*, MPV 11.8, Immature Gran % (Auto) 1.400 H, Neut % (Auto) 88.1 H, Lymph % (Auto) 5.0 L, [place] % (Auto) 5.1, Eos % (Auto) 0.2, Baso % (Auto) 0.2, Absolute Neuts (auto) 10.8 H, Absolute Lymphs (auto) 0.61 L, Nucleated RBC % 0, Diff Path Review August, Platelet Estimate MKD 08/06/21 04:30: Sodium 141, Potassium 5.3 H, Chloride 106, Carbon Dioxide 27.0, Anion Gap 8, BUN 79 H, Creatinine 2.16 H, Estim Creat Clear Calc 34.74, Est GFR (MDRD) Af Amer 40 L, Est GFR (MDRD) Non-Af 33 L, BUN/Creatinine Ratio 36.6 H, Glucose 192 H, Calcium 10.9 H, Total Bilirubin 20.50 H*, AST 65 H, ALT 66 H, Alkaline Phosphatase 130 H, Total Protein 5.1 L, Albumin 3.2, Globulin 1.9 L, Albumin/Globulin Ratio 1.7 08/06/21 04:30: PT 37.8 H, INR 3.9 Micro: Microbiology 08/04/21 08:10 Blood Culture (Wb) - Anticubital Left Blood Culture - Preliminary 08/04/21 08:00 Blood Culture (Wb) - Pic Blood Culture - Preliminary Staphylococcus aureus 08/03/21 16:00 Urine Catheter - Parker Urine Culture - Final Staphylococcus aureus 08/03/21 08:38 Blood Culture (Wb) - Anticubital Left Bacteria Detection (PCR) - Final Staphylococcus aureus 08/03/21 08:38 Blood Culture (Wb) - Anticubital Left Blood Culture - Final Staphylococcus aureus 08/03/21 08:04 Blood Culture (Wb) - Anticubital Right Blood Culture - Final Staphylococcus aureus 08/03/21 16:00 Urine Catheter - Parker Legionella Antigen - Final 08/03/21 16:00 Urine Catheter - Parker Streptococcus pneumoniae Antigen (M - Final ABG Data ABG results: ABG 08/05/21 11:44 Specimen Type ART Sample Site R Radial pH 7.46 H Bicarbonate Actual 25.3 Total CO2 26 Base Excess 1 O2 Saturation 81 L ABG pCO2 35.9 ABG pO2 43 L Art Test Positive O2 Delivery Device Cannula Liter Flow 15.0 Physical Exam Narrative Seen and examined. Afebrile. On BiPAP 45% FiO2. Patient is confused and disoriented. Not verbal/noncommunicative General: Drowsy, lethargic, no spontaneous eye opening. Disoriented HEENT: Deep icterus. Atraumatic, Normocephalic. Not cooperative for pupil exam Oral: On BiPAP. Neck: Supple, Negative Carotid Bruits, JVD could not be assessed accurately as patient on BiPAP but seems elevated. Lungs: Air entry diminished in bilateral lung bases. No crepitation/rhonchi Cardiovascular: Regular rate, Regular Rhythm, Normal S1, Normal S2, No murmurs Abdomen: Soft, distended. Bowel sounds sluggish. Nontender. Liver edge not palpable. : No renal angle tenderness. No suprapubic tenderness. Extremities: Bilateral lower extremity edema, Capillary Refill Less than 3 Seconds Skin: Multiple scabbed over lower extremities. Musculoskeletal: No Tenderness to Palpation of Joints or Extremities Neurological: Flapping tremor present. Lethargic, not following command. No acute focal deficit or asymmetry. GCS [id number] Psych/Mental Status: Flat affect. Assessment & Plan Assessment/Plan (1) Elevated INR: (2) Acute alcoholic hepatitis: (3) Pneumonia: QUALIFIERS: Laterality: bilateral Lung location: lower lobe of lung Pneumonia type: due to unspecified organism Qualified Code(s): J18.9 - Pneumonia, unspecified organism (4) Elevated troponin: (5) ROLAND (acute kidney injury): (6) Septic shock: (7) Bacteremia: PLAN: 1. Septic shock most likely due to pneumonia and MSSA bacteremia and MSSA UTI: Patient is being admitted in ICU. qSOFA score 2. Septic shock protocol followed and received fluid bolus 30 mill per KG. Weaned off norepinephrine. Patient also on hydrocortisone IV. Patient might have adrenal insufficiency as she is on long-term steroid use since May. Blood culture shows MSSA. Urine culture shows staph aureus more than 100,000 colonies. UA 5- 10 WBC, LE 100, nitrite negative. 2D echo did not show any vegetation. Patient vancomycin discontinued. 2D echo negative for vegetation. 2. Pneumonia probably due to presumed pneumococcal pneumonia: Chest x-ray shows worsening infiltrate. Urinary antigens are negative. Antibiotic broadened to Zosyn. 3. Acute kidney injury most likely prerenal with possibility of hepatorenal syndrome: Patient has history of alcoholic cirrhosis. Avoid hypotension. Worsening of creatinine from 1.95-2.16. We will try to treat underlying disease. The patient is on midodrine and octreotide drip. Urinary electrolytes ordered. 5. Elevated troponins * Suspect due to demand, type II event * Patient not a candidate for aspirin or antiplatelet medications given his severe thrombocytopenia * 2D echo shows EF 70% * Patient is not a candidate for a cardiac catheterization given his multiple medical comorbidities. 6. Acute liver injury on chronic alcoholic liver disease/alcoholic cirrhosis * Cirrhosis secondary to alcohol. Patient stopped drinking alcohol May 2021. Patient does not meet definition criteria for acute liver failure. * Patient INR has been high in the past 4.08 October 2018, direct bilirubin 2.46.Similarly, transaminases has also been high since October 2018, dating back in our medical record. INR 1.9 in May 2021 * Patient had recent variceal banding performed by Dr. Babin. * Meld sodium score is 40. Child for score 13. * Patient had albumin 50g IV Q6h. Currently on octreotide drip, midodrine, rifaximin. * Abd US showed cirrhosis * Pt received vitamin K, but despite that INR has gone up to 4.2 * Transfer Controller following. Patient accepted in [facility] but does not have bed. 7. Acute hypoxic respiratory failure * Possible due to pneumonia but also CHF. Positive fluid balance 3.6 L * On intermittent furosemide to maintain oxygenation. 8. 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 VTE prophylaxis * Hold chemical prophylaxis is contraindicated with thrombocytopenia * SCDs 10. CODE STATUS * Addressed with the patient. Patient wishes to be DNR Comfort Care arrest no intubation 11. COVID-19, unvaccinated * Patient denies any recent exposure to any with COVID-19 and that he himself denies ever having had COVID-19. * Patient at higher risk given his other underlying medical comorbidities for potential for severe infection from COVID-19. 12. Atrial flutter * transient. Likely exacerbated by septic shock and multiple other medical issues. * currently in NSR 13. Prognosis: guraded to poor. Overall total bilirubin, creatinine and INR worsening along with mental condition. I talked to the [facility] manager transfer and she said she might have beds open this afternoon might get transfer today. But soon after that nursing staff down the bed assignment coordinator, they said they would not have beds open until tomorrow Total time of the visit including total time spent in counseling or coordination of care, (more than 50% of the total time, spent in obtaining medical info rmation from nurses and other ancillary care providers,explaining to the patient about labs, imaging, diagnosis and management), discussion with consultants, review of labs and imaging is 40 minutes. Charges/Coding Visit Charges Inpatient E&M: 96788 Subs Hosp L3
--- NOTE | 2021-08-06 07:47 | PN.CARD_ITS ---
Subjective Subjective The patient appears to be resting comfortably at the moment. Objective Data Vital Signs: Vital Signs Temp Pulse Resp BP Pulse Ox 98.0 F 87 21 H 129/62 H 96 08/06/21 07:00 08/06/21 07:00 08/06/21 07:00 08/06/21 07:00 08/06/21 07:00 Oxygen Flow Rate (L/min) 12 Oxygen Delivery Method Bi-pap Weight: 169 lb 15.622 oz Body Mass Index (BMI) 23.1 Intake & Output: Intake and Output for Last 24 Hours 08/04/21 08/05/21 08/06/21 23:59 23:59 23:59 Intake Total 2343.86 / 2443.86 950.83 / 1100.83 451 / 451 Output Total 1375 / 1675 1200 / 1675 1075 / 1075 Balance 968.86 / 768.86 -249.17 / -574.17 -624 / -624 Lab / Micro Data Result Diagrams: 08/06/21 04:30 08/06/21 04:30 Labs: Laboratory Results - last 24 hr 08/05/21 08:50: WBC 10.7, RBC 2.48 L, Hgb 9.4 L, Hct 26.7 L, MCV 107.7 H, MCH 37.9 H, MCHC 35.2, RDW Std Deviation 64.3 H, RDW Coeff of Belinda 16.4 H, Plt Count 42 L*, MPV 11.5, Immature Gran % (Auto) 1.400 H, Neut % (Auto) 85.4 H, Lymph % (Auto) 7.0 L, [place] % (Auto) 5.9, Eos % (Auto) 0.0, Baso % (Auto) 0.3, Absolute Neuts (auto) 9.1 H, Absolute Lymphs (auto) 0.75 L, Nucleated RBC % 0, Differential Comment SCANNED, Diff Path Review August horacio, Platelet Estimate MKD 08/05/21 10:50: PT 40.5 H, INR 4.2 H* 08/05/21 11:10: Ammonia 27.0 08/05/21 11:10: Lactic Acid 3.2 H* 08/05/21 18:00: Vancomycin Trough 21.1 H 08/06/21 04:30: WBC 12.3 H, RBC 2.68 L, Hgb 10.3 L, Hct 29.3 L, MCV 109.3 H, MCH 38.4 H, MCHC 35.2, RDW Std Deviation 66.5 H, RDW Coeff of Belinda 16.7 H, Plt Count 42 L*, MPV 11.8, Immature Gran % (Auto) 1.400 H, Neut % (Auto) 88.1 H, Lymph % (Auto) 5.0 L, [place] % (Auto) 5.1, Eos % (Auto) 0.2, Baso % (Auto) 0.2, Absolute Neuts (auto) 10.8 H, Absolute Lymphs (auto) 0.61 L, Nucleated RBC % 0, Diff Path Review August, Platelet Estimate MKD 08/06/21 04:30: Sodium 141, Potassium 5.3 H, Chloride 106, Carbon Dioxide 27.0, Anion Gap 8, BUN 79 H, Creatinine 2.16 H, Estim Creat Clear Calc 34.74, Est GFR (MDRD) Af Amer 40 L, Est GFR (MDRD) Non-Af 33 L, BUN/Creatinine Ratio 36.6 H, Glucose 192 H, Calcium 10.9 H, Total Bilirubin 20.50 H*, AST 65 H, ALT 66 H, Alkaline Phosphatase 130 H, Total Protein 5.1 L, Albumin 3.2, Globulin 1.9 L, Albumin/Globulin Ratio 1.7 08/06/21 04:30: PT 37.8 H, INR 3.9 Micro: Microbiology 08/04/21 08:00 Blood Culture (Wb) - Pic Blood Culture - Preliminary Staphylococcus aureus 08/04/21 08:10 Blood Culture (Wb) - Anticubital Left Blood Culture - Preliminary 08/03/21 16:00 Urine Catheter - Parker Urine Culture - Final Staphylococcus aureus 08/03/21 08:38 Blood Culture (Wb) - Anticubital Left Bacteria Detection (PCR) - Final Staphylococcus aureus 08/03/21 08:38 Blood Culture (Wb) - Anticubital Left Blood Culture - Final Staphylococcus aureus ABG Data ABG results: ABG 08/05/21 11:44 Specimen Type ART Sample Site R Radial pH 7.46 H Bicarbonate Actual 25.3 Total CO2 26 Base Excess 1 O2 Saturation 81 L ABG pCO2 35.9 ABG pO2 43 L Art Test Positive O2 Delivery Device Cannula Liter Flow 15.0 Cardiology Labs/Tests 08/05/21 08:50: WBC 10.7, RBC 2.48 L, Hgb 9.4 L, Hct 26.7 L, MCV 107.7 H, MCH 37.9 H, MCHC 35.2, Plt Count 42 L*, MPV 11.5, Immature Gran % (Auto) 1.400 H, Neut % (Auto) 85.4 H, Lymph % (Auto) 7.0 L, [place] % (Auto) 5.9, Eos % (Auto) 0.0, Baso % (Auto) 0.3, Absolute Neuts (auto) 9.1 H, Nucleated RBC % 0 08/05/21 10:50: PT 40.5 H, INR 4.2 H* 08/05/21 11:10: Lactic Acid 3.2 H* 08/05/21 11:44: pH 7.46 H, Bicarbonate Actual 25.3, Base Excess 1, O2 Saturation 81 L, ABG pCO2 35.9, ABG pO2 43 L, Art Test Positive 08/06/21 04:30: WBC 12.3 H, RBC 2.68 L, Hgb 10.3 L, Hct 29.3 L, MCV 109.3 H, MCH 38.4 H, MCHC 35.2, Plt Count 42 L*, MPV 11.8, Immature Gran % (Auto) 1.400 H, Neut % (Auto) 88.1 H, Lymph % (Auto) 5.0 L, [place] % (Auto) 5.1, Eos % (Auto) 0.2, Baso % (Auto) 0.2, Absolute Neuts (auto) 10.8 H, Nucleated RBC % 0 08/06/21 04:30: Sodium 141, Potassium 5.3 H, Chloride 106, Carbon Dioxide 27.0, Anion Gap 8, BUN 79 H, Creatinine 2.16 H, Est GFR (MDRD) Af Amer 40 L, Est GFR (MDRD) Non-Af 33 L, BUN/Creatinine Ratio 36.6 H, Glucose 192 H, Calcium 10.9 H, Total Bilirubin 20.50 H* 08/06/21 04:30: PT 37.8 H, INR 3.9 Rhythm: Sinus rhythm Physical Exam Narrative This is a 65-year-old jaundiced and weak appearing male. Const alert and oriented x3 Orientation / Consciousness: awake HEENT normocephalic, head/scalp atraumatic and hearing grossly normal bilaterally Eyes Eyes Narrative: Sclera: Positive icterus Neck full ROM, supple and no JVD Resp Resp Narrative: Diminished respiratory effort Auscultation: wheezes scattered wheezes Cardio regular rate, regular rhythm, S1 normal heart sound and S2 normal heart sound GI GI Narrative: Somewhat distended appearing: Positive bowel sounds Extremity no pedal edema Skin Skin Narrative: Jaundiced appearing Neuro oriented x3, moves all extremities, no focal motor deficits and no sensory deficits noted Psych Psych Narrative: Affect: Flat Assessment & Plan Assessment/Plan (1) Elevated troponin: PLAN: The patient does have findings of an elevated troponin I level. At the present time this is thought to be related to a type II event secondary to his noncardiovascular comorbidities including concerns such as his sepsis. At the present time the patient has undergone noninvasive evaluation as noted. The patient does not appear to be an ideal candidate for invasive cardiovascular evaluation such as diagnostic cardiac catheterization based upon his ongoing multiple noncardiac comorbidities and hematologic abnormalities and renal insufficiency, etc. Thus the patient should continue medical management for his multiple noncardiac comorbidities and additional cardiovascular diagnoses as deemed appropriate. (2) Atrial fibrillation and flutter: PLAN: The patient had paroxysmal atrial fibrillation/flutter. The patient had spontaneous conversion to sinus rhythm. He was then noted to return to atrial fibrillation. He was treated with digitalis 0.5 mg IV push x1. He was reported as having subsequent slowing of his ventricular rate. As previously noted he subsequently had, during a bowel movement, a slow ventricular response followed by a prolonged pause followed by return to sinus rhythm. He is remaining in sinus rhythm at this time with his rate within normal ranges. (3) Bacteremia: PLAN: He is under going evaluation and care for concerns of bacteremia. (4) Acute alcoholic hepatitis: PLAN: He does have a history of what is thought to be alcoholic hepatitis. His hepatic transaminases were elevated. They appear to be decreasing somewhat. He continues evaluation care as noted above. (5) Cirrhosis: PLAN: He does have a history of cirrhosis. This appears to be secondary to his alcoholic intake. He is undergoing evaluation care by internal medicine as well as pulmonology /critical care medicine. He may need additional evaluation care per gastroenterology/hepatology. (6) Elevated INR: PLAN: His INR is elevated thought secondary to his underlying hepatic insufficiency. This does need to be monitored. If his INR corrects and he has continued evidence of atrial dysrhythmias then he may need to be considered for some form of anticoagulant therapy if deemed safe based upon his multiple comorbidities. (7) Thrombocytopenia: PLAN: He does have thrombocytopenia thought it was underlying hepatic insufficiency. This would pose a concern with respect to attempting invasive evaluation or care as well as potentially anticoagulant therapy. (8) ROLAND (acute kidney injury): PLAN: His renal and patient's he does to be monitored and taken into c onsideration with adjustment of medications. (9) Hypertension: PLAN: At the time he is hypotensive not secondary to his underlying bacteremia/sepsis syndrome. He has been placed on midodrine therapy. His blood pressure appears to have improved to the point where his IV vasopressor has been discontinued Addt'l Comments The patient is pending transfer to [facility] for further evaluation and care. The patient's case was discussed and reviewed with Dr. Barbosa of the intensive care/pulmonology staff. This note was generated using a voice recognition system and there may be incorrect words, spelling or punctuation that were not noted when reviewing the office note prior to saving.
[2021-08-06] MEDS: Pantoprazole Sodium 40 MG Tablet PO (08:24)
[2021-08-06] MEDS: rifAXIMin 550 MG Tablet PO (08:24)
[2021-08-06] MEDS: Sucralfate 1 GM Tablet PO ×2 (08:24→12:25)
[2021-08-06] MEDS: Midodrine HCl 5 MG Tablet 10 MG PO ×2 (08:25→12:25)
[2021-08-06] MEDS: Menthol/Lanolin/Calamine/Znox 113 GM Tube 1 APPLIC TOPICAL ×2 (08:26→21:21)
[2021-08-06] MEDS: Lactulose 20 GM/30 ML UDC PO (08:26)
[2021-08-06] MEDS: CHLORHEXIDINE GLUC 2% CLOTH 1 EACH TOWELETTE TOPICAL (08:27)
[2021-08-06 13:35] LABS: Allen Test Positive; Base Excess 3 mmol/L (-2 to +2); Bicarbonate 27.2 mmol/L (22-26); Blood Gas Specimen Type ART; Comment 14/8; FI02 45; O2 Delivery Device BiPAP; PO2 77 mmHG (75-100); RR 12; SITE L Radial; SO2 96 % (95-99); Total Carbon Dioxide 28 mmol/L; pCO2 38.6 mmHg (35-45); pH 7.46 (7.35-7.45)
[2021-08-07] VITALS (9 sets, daily range): BP systolic 129–145; BP diastolic 62–77; PULSE 97–106; RESP 12–25; TEMP 36.6–36.8; O2SAT 93–95
--- NOTE | 2021-08-07 02:15 | NURSING ---
Pt requiring nurse to stay at bedside due to pulling at lines, Bipap, barnett catheter, and attempting to get out of bed. Redirection, relaxation, and distraction attempted with no change in behavior. Pt denies difficulty breathing or pain at this time.
[2021-08-07] MEDS: Hydrocortisone Sod Succinate 100 MG/2 ML Vial 50 MG IV (05:33)
--- NOTE | 2021-08-07 05:58 | NURSING ---
Report given to [facility] RN.
--- NOTE | 2021-08-07 06:10 | PN.CC_ITS ---
Assessment & Plan Assessment/Plan (1) Cirrhosis: (2) Septic shock: PLAN: RECOMMENDATIONS: 1. Continue BiPAP therapy and wean FiO2 for saturations greater than 90%. 2. Continue antimicrobials as ordered. 3. Continue octreotide infusion. 4. Continue steroids and scheduled midodrine. 5. Avoid sedating medications, including Ativan. 6. The patient will remain n.p.o. for now. 7. Awaiting transfer to [facility]. IMPRESSIONS: 1. Acute alcoholic hepatitis/decompensated cirrhosis The patient has a known history of cirrhosis and esophageal varices status post banding. He has an elevated meld score with associated anemia, thrombocytopenia and coagulopathy. The patient has already been evaluated by gastroenterology and is currently on appropriate medications. However, he remains coagulopathic with worsening hyperbilirubinemia. Plan to continue current medical management while awaiting bed availability at [facility] for transfer. 2. Septic shock The patient presented to the hospital with sepsis secondary to multifocal pneumonia and questionable SBP. The patient did transiently require vasopressor support. He remains on broad-spectrum antimicrobials. Hemodynamics remain somewhat tenuous due to his underlying liver disease. 3. Acute hypoxemic respiratory failure Likely secondary to underlying pneumonia. The patient's volume status will also be difficult to control in light of his underlying liver and renal disease. The patient has not tolerated a significant amount of time off of BiPAP therapy. In the interim, continue to wean FiO2 as tolerated for saturations greater than 90%. Continue antimicrobials as noted above. 4. Encephalopathy Likely metabolic in etiology. I would strongly advise against utilization of sedative medications in this patient, including Ativan. Obtain arterial blood gases noted above. Continue lactulose and rifaximin, if NG can be placed. Continue to monitor ammonia level. 5. Anemia/thrombocytopenia/coagulopathy Secondary to underlying liver disease. The patient is awaiting transfer to [facility] for transplant evaluation. 6. Acute kidney injury Differential would include ATN or hepatorenal syndrome. Creatinine has risen today. Continue to monitor for now. If renal function continues to worsen, will need to obtain nephrology consultation. TIME: 32 minutes of critical care time, independent of procedures, was spent add ressing the patient's acute alcoholic hepatitis/decompensated cirrhosis, septic shock, acute hypoxemic respiratory failure, encephalopathy, thrombocytopenia, coagulopathy, review of all data and collaboration with the care team. Subjective Subjective The patient was seen and examined at the bedside this morning. Events from the last 24 hours have been reviewed. The patient is currently afebrile, hemodynamically stable and maintaining appropriate oxygen saturations on BiPAP with an FiO2 requirement of 35%. The patient is currently documented to be overall net +2.4 L for the hospitalization. Per nursing report, the patient readily desaturates when removed from BiPAP therapy. Unfortunately, he had to be made strict n.p.o. because of this and was therefore unable to receive his lactulose and rifaximin yesterday. He is quite encephalopathic this morning. Objective Data Objective Data The patient's most recent lab work, culture data and imaging studies have all been personally reviewed. Surface echocardiogram dated August 03 demonstrated normal LV size and function with an ejection fraction of 70%. RVSP was unable to be estimated. Blood cultures remain positive for MSSA. Vital Signs: Vital Signs Temp Pulse Resp BP Pulse Ox 97.9 F 101 H 22 H 141/72 H 94 08/07/21 06:00 08/07/21 06:00 08/07/21 06:00 08/07/21 06:00 08/07/21 06:00 Oxygen Flow Rate (L/min) 12 Oxygen Delivery Method Bi-pap Weight: 73.3 kg Body Mass Index (BMI) 23.1 Intake & Output: Intake and Output for Last 24 Hours 08/05/21 08/06/21 08/07/21 23:59 23:59 23:59 Intake Total 950.83 / 1100.83 746.00 / 746.00 50 / 50 Output Total 1200 / 1675 2100 / 2750 650 / 650 Balance -249.17 / -574.17 -1354.00 / -2004.00 -600 / -600 Lab / Micro Data Attestation: I reviewed the patient's lab results. Result Diagrams: 08/06/21 04:30 08/06/21 04:30 Labs: Laboratory Results - last 24 hr 08/04/21 11:00: Cortisol 156.50 H Micro: Microbiology 08/05/21 08:50 Blood Culture (Wb) - Pic Blood Culture - Preliminary Staphylococcus aureus 08/04/21 08:00 Blood Culture (Wb) - Pic Blood Culture - Preliminary Staphylococcus aureus 08/04/21 08:10 Blood Culture (Wb) - Anticubital Left Blood Culture - Preliminary 08/03/21 16:00 Urine Catheter - Parker Urine Culture - Final Staphylococcus aureus 08/03/21 08:38 Blood Culture (Wb) - Anticubital Left Bacteria Detection (PCR) - Final Staphylococcus aureus 08/03/21 08:38 Blood Culture (Wb) - Anticubital Left Blood Culture - Final Staphylococcus aureus 08/03/21 08:04 Blood Culture (Wb) - Anticubital Right Blood Culture - Final Staphylococcus aureus 08/03/21 16:00 Urine Catheter - Parker Legionella Antigen - Final 08/03/21 16:00 Urine Catheter - Parker Streptococcus pneumoniae Antigen (M - Final ABG Data ABG results: ABG 08/06/21 13:30 Specimen Type ART Sample Site L Radial pH 7.46 H Bicarbonate Actual 27.2 H Total CO2 28 Base Excess 3 H O2 Saturation 96 O2 % 45 ABG pCO2 38.6 ABG pO2 77 Art Test Positive Respiration Rate 12 O2 Delivery Device BiPAP Clinical Comments 18/11 Physical Exam Const Constitutional Narrative: Jaundice in appearance General Appearance: lethargic, ill appearing and on BiPAP HEENT normocephalic and head/scalp atraumatic Eyes PERRL and EOMs intact bilaterally Sclera: sclera abnormal Neck supple General: trachea midline Resp normal respiratory effort Auscultation: Negative for rales, rhonchi or wheezes Cardio S1 normal heart sound and S2 normal heart sound Rate: tachycardic GI soft to palpation Inspection: abdominal distention Extremity General Extremity: edema bilateral lower extremity Skin no rashes or lesions noted Neuro Sensorium / Orientation: lethargic Motor Exam: tremor Psych Mood & Affect: flat affect Charges/Coding Procedures Hospitalists Procedures: 49917 Critial Care 1st Hr
--- NOTE | 2021-08-07 07:38 | PN.HOSP_ITS ---
Objective Data Objective Data Vital Signs: Vital Signs Temp Pulse Resp BP Pulse Ox 98.0 F 101 H 20 H 141/73 H 93 08/07/21 07:00 08/07/21 07:00 08/07/21 07:00 08/07/21 07:00 08/07/21 07:00 Oxygen Flow Rate (L/min) 12 Oxygen Delivery Method Bi-pap Weight: 161 lb 9.581 oz Body Mass Index (BMI) 23.1 Intake & Output: Intake and Output for Last 24 Hours 08/05/21 08/06/21 08/07/21 23:59 23:59 23:59 Intake Total 950.83 / 1100.83 746.00 / 746.00 50 / 50 Output Total 1200 / 1675 2100 / 2750 1200 / 1200 Balance -249.17 / -574.17 -1354.00 / -2004.00 -1150 / -1150 Lab / Micro Data Result Diagrams: 08/06/21 04:30 08/06/21 04:30 Labs: Laboratory Results - last 24 hr 08/04/21 11:00: Cortisol 156.50 H Micro: Microbiology 08/04/21 08:10 Blood Culture (Wb) - Anticubital Left Blood Culture - Preliminary 08/05/21 08:50 Blood Culture (Wb) - Pic Blood Culture - Preliminary Staphylococcus aureus 08/04/21 08:00 Blood Culture (Wb) - Pic Blood Culture - Preliminary Staphylococcus aureus 08/03/21 16:00 Urine Catheter - Parker Urine Culture - Final Staphylococcus aureus 08/03/21 08:38 Blood Culture (Wb) - Anticubital Left Bacteria Detection (PCR) - Final Staphylococcus aureus 08/03/21 08:38 Blood Culture (Wb) - Anticubital Left Blood Culture - Final Staphylococcus aureus 08/03/21 08:04 Blood Culture (Wb) - Anticubital Right Blood Culture - Final Staphylococcus aureus 08/03/21 16:00 Urine Catheter - Parker Legionella Antigen - Final 08/03/21 16:00 Urine Catheter - Parker Streptococcus pneumoniae Antigen (M - Final ABG Data ABG results: ABG 08/06/21 13:30 Specimen Type ART Sample Site L Radial pH 7.46 H Bicarbonate Actual 27.2 H Total CO2 28 Base Excess 3 H O2 Saturation 96 O2 % 45 ABG pCO2 38.6 ABG pO2 77 Art Test Positive Respiration Rate 12 O2 Delivery Device BiPAP Clinical Comments 18/11 Physical Exam Narrative Seen and examined. Afebrile. On BiPAP 45% FiO2. Patient is confused and disoriented. Not verbal/noncommunicative General: Drowsy, lethargic, no spontaneous eye opening. Disoriented HEENT: Deep icterus. Atraumatic, Normocephalic. Not cooperative for pupil exam Oral: On BiPAP. Neck: Supple, Negative Carotid Bruits, JVD could not be assessed accurately as patient on BiPAP but seems elevated. Lungs: Air entry diminished in bilateral lung bases. No crepitation/rhonchi Cardiovascular: Regular rate, Regular Rhythm, Normal S1, Normal S2, No murmurs Abdomen: Soft, distended. Bowel sounds sluggish. Nontender. Liver edge not palpable. : No renal angle tenderness. No suprapubic tenderness. Extremities: Bilateral lower extremity edema, Capillary Refill Less than 3 Seconds Skin: Multiple scabbed over lower extremities. Musculoskeletal: No Tenderness to Palpation of Joints or Extremities Neurological: Flapping tremor present. Lethargic, not following command. No acute focal deficit or asymmetry. GCS [id number] Psych/Mental Status: Flat affect. Assessment & Plan Assessment/Plan (1) Elevated INR: (2) Acute alcoholic hepatitis: (3) Pneumonia: QUALIFIERS: Pneumonia type: due to unspecified organism Laterality: bilateral Lung location: lower lobe of lung Qualified Code(s): J18.9 - Pneumonia, unspecified organism (4) Elevated troponin: (5) ROLAND (acute kidney injury): (6) Septic shock: (7) Bacteremia: PLAN: 1. Septic shock most likely due to pneumonia and MSSA bacteremia and MSSA UTI: Patient is being admitted in ICU. qSOFA score 2. Septic shock protocol followed and received fluid bolus 30 mill per KG. Weaned off norepinephrine. Patient also on hydrocortisone IV. Patient might have adrenal insufficiency as she is on long-term steroid use since May. Blood culture shows MSSA. Urine culture shows staph aureus more than 100,000 colonies. UA 5- 10 WBC, LE 100, nitrite negative. 2D echo did not show any vegetation. Patient vancomycin discontinued. 2D echo negative for vegetation. 2. Pneumonia probably due to presumed pneumococcal pneumonia: Chest x-ray shows worsening infiltrate. Urinary antigens are negative. Antibiotic broadened to Zosyn. 3. Acute kidney injury most likely prerenal with possibility of hepatorenal syndrome: Patient has history of alcoholic cirrhosis. Avoid hypotension. Worsening of creatinine from 1.95-2.16. We will try to treat underlying disease. The patient is on midodrine and octreotide drip. Urinary electrolytes ordered. 5. Elevated troponins * Suspect due to demand, type II event * Patient not a candidate for aspirin or antiplatelet medications given his severe thrombocytopenia * 2D echo shows EF 70% * Patient is not a candidate for a cardiac catheterization given his multiple medical comorbidities. 6. Acute liver injury on chronic alcoholic liver disease/alcoholic cirrhosis * Cirrhosis secondary to alcohol. Patient stopped drinking alcohol May 2021. Patient does not meet definition criteria for acute liver failure. * Patient INR has been high in the past 4.08 October 2018, direct bilirubin 2.46.Similarly, transaminases has also been high since October 2018, dating back in our medical record. INR 1.9 in May 2021 * Patient had recent variceal banding performed by Dr. Babin. * Meld sodium score is 40. Child for score 13. * Patient had albumin 50g IV Q6h. Currently on octreotide drip, midodrine, rifaximin. * Abd US showed cirrhosis * Pt received vitamin K, but despite that INR has gone up to 4.2 * Head Housekeeper following. Patient accepted in [facility] but does not have bed. 7. Acute hypoxic respiratory failure * Possible due to pneumonia but also CHF. Positive fluid balance 3.6 L * On intermittent furosemide to maintain oxygenation. 8. 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 VTE prophylaxis * Hold chemical prophylaxis is contraindicated with thrombocytopenia * SCDs 10. CODE STATUS * Addressed with the patient. Patient wishes to be DNR Comfort Care arrest no intubation 11. COVID-19, unvaccinated * Patient denies any recent exposure to any with COVID-19 and that he himself denies ever having had COVID-19. * Patient at higher risk given his other underlying medical comorbidities for potential for severe infection from COVID-19. 12. Atrial flutter * transient. Likely exacerbated by septic shock and multiple other medical issues. * currently in NSR 13. Prognosis: guraded to poor. Overall total bilirubin, creatinine and INR worsening along with mental condit ion. I talked to the [facility] field coordinator and she said she might have beds open this afternoon might get transfer today. But soon after that nursing staff down the bed assignment coordinator, they said they would not have beds open until tomorrow Total time of the visit including total time spent in counseling or coordination of care, (more than 50% of the total time, spent in obtaining medical information from nurses and other ancillary care providers,explaining to the patient about labs, imaging, diagnosis and management), discussion with consultants, review of labs and imaging is 40 minutes.
--- NOTE | 2021-08-07 11:06 | PCM.DC.SUM ---
Providers Date of Admission: 08/03/21 Date of Discharge: 08/07/21 Primary Care Physician: Dr. Julio Underwood, Consultations 08/03/21 14:12 Consult: Mine Boss / Pulmonary Medicine Routine Consulting Provider: [facility] Reason for Consult: septic shock EMERGENT Consult: No Notified: Yes Date Notified: 08/03/21 Time Notified: 14:01 Method of Notification: Text 08/04/21 07:28 Consult: Gastroenterology Routine Consulting Provider: [facility] Reason for Consult: cirrhosis EMERGENT Consult: No Notified: Yes Date Notified: 08/04/21 Time Notified: 07:28 Method of Notification: Verbal 08/04/21 09:00 Consult: Cardiology Routine Consulting Provider: Roberto Bravo Reason for Consult: new onset aflutter EMERGENT Consult: No Notified: Yes Date Notified: 08/04/21 Time Notified: 09:00 Method of Notification: Text Method of Consult:: In-Person Reason For Visit: sepsis,pneumonia,hematuria,isidro hypoxia,alcoholic Diagnosis Discharge Diagnosis (1) Cirrhosis: Status: Acute Code(s): K74.60 - Unspecified cirrhosis of liver (2) Septic shock: Status: Acute Code(s): A41.9 - Sepsis, unspecified organism; R65.21 - Severe sepsis with septic shock Medications at Discharge Home Medications lactulose 20 gram/30 mL oral solution 20 g PO BID #3000 ml 07/02/21 prednisone 10 mg tablet See Rx Instructions PO DAILY #60 tab 07/09/21 carvedilol 6.25 mg tablet 6.25 mg PO BID #60 tab 07/18/21 furosemide 40 mg tablet 40 mg PO DAILY #30 tab 07/18/21 pantoprazole 40 mg tablet,delayed release 40 mg PO BID #60 tab 07/18/21 spironolactone 50 mg tablet 50 mg PO DAILY #30 tab 07/18/21 sucralfate 100 mg/mL oral suspension 10 ml PO Q6H 28 Days #1120 ml 07/31/21 Hospital Course Summary of Care Provided Hospital Course: This 65-year-old man was admitted with confusion, weakness and shortness of breath through ER. Patient was having pain in the leg and unable to get up. In ED, patient was noted to be hypotensive, lactic acid 4.6 and had sepsis protocol followed with IV fluid bolus 30 mill per KG body weight. Chest x-ray showed pneumonia and started on IV antibiotics in ED. Further hospital course, assessment and evaluation as mentioned below. 1. Septic shock most likely due to pneumonia and MSSA bacteremia and MSSA UTI: Patient is being admitted in ICU. qSOFA score 2. Septic shock protocol followed and received fluid bolus 30 mill per KG. Weaned off norepinephrine. Patient also on hydrocortisone IV. Patient might have adrenal insufficiency as she is on long-term steroid use since May. Blood culture shows MSSA. Urine culture shows staph aureus more than 100,000 colonies. UA 5-10 WBC, LE 100, nitrite negative. 2D echo did not show any vegetation. Patient vancomycin discontinued. 2D echo negative for vegetation. 2. Pneumonia probably due to presumed pneumococcal pneumonia: Chest x-ray shows worsening infiltrate. Urinary antigens are negative. Antibiotic broadened to Zosyn. 3. Acute kidney injury most likely prerenal with possibility of hepatorenal syndrome: Patient has history of alcoholic cirrhosis. Avoid hypotension. Worsening of creatinine from 1.95-2.16. We will try to treat underlying disease. The patient is on midodrine and octreotide drip. 5. Elevated troponins Suspect due to demand, type II event Patient not a candidate for aspirin or antiplatelet medications given his severe thrombocytopenia 2D echo shows EF 70% Patient is not a candidate for a cardiac catheterization given his multiple medical comorbidities. 6. Acute liver injury on chronic alcoholic liver disease/alcoholic cirrhosis Cirrhosis secondary to alcohol. Patient stopped drinking alcohol May 2021. Patient does not meet definition criteria for acute liver failure. Patient INR has been high in the past 4.08 October 2018, direct bilirubin 2.46.Similarly, transaminases has also been high since October 2018, dating back in our medical record. INR 1.9 in May 2021 Patient had recent variceal banding performed by Dr. Babin. Meld sodium score is 40. Child for score 13. Patient had albumin 50g IV Q6h. Currently on octreotide drip, midodrine, rifaximin. Abd US showed cirrhosis Pt received vitamin K, but despite that INR has gone up to 4.2 Pretzel Twisting Machine Operator following. Patient accepted in [facility] but does not have bed. 7. Acute hypoxic respiratory failure Possible due to pneumonia but also CHF. Positive fluid balance 3.6 L On intermittent furosemide to maintain oxygenation. 8. Thrombocytopenia Secondary to cirrhosis and probable splenomegaly Chronic 9. VTE prophylaxis Hold chemical prophylaxis is contraindicated with thrombocytopenia SCDs 10. CODE STATUS Addressed with the patient. Patient wishes to be DNR Comfort Care arrest no intubation 11. COVID-19, unvaccinated Patient denies any recent exposure to any with COVID-19 and that he himself denies ever having had COVID-19. Patient at higher risk given his other underlying medical comorbidities for potential for severe infection from COVID-19. 12. Atrial flutter transient. Likely exacerbated by septic shock and multiple other medical issues. currently in NSR 13. Prognosis: guraded to poor. Overall total bilirubin, creatinine and INR worsening along with fluctuation of mental alertness. Total time of the visit including total time spent in counseling or coordination of care, (more than 50% of the total time, spent in obtaining medical information from nurses and other ancillary care providers,explaining to the patient about labs, imaging, diagnosis and management), discussion with consultants, coordination of care with computer security coordinator, review of labs and imaging is 40 minutes. Physical Exam Narrative Seen and examined. Afebrile. On BiPAP 35% FiO2. Patient is more awake than yesterday. He responds to simple commands. General: Awake. On BiPAP. HEENT: Deep icterus. Atraumatic, Normocephalic. Not cooperative for pupil exam Oral: On BiPAP. Neck: Supple, Negative Carotid Bruits, JVD could not be assessed accurately as patient on BiPAP but seems elevated. Lungs: Air entry diminished in bilateral lung bases. No crepitation/rhonchi Cardiovascular: Regular rate, Regular Rhythm, Normal S1, Normal S2, No murmurs Abdomen: Soft, distended. Bowel sounds sluggish. Nontender. Liver edge not palpable. : Parker catheter draining dark urine. No renal angle tenderness. No suprapubic tenderness. Extremities: Bilateral lower extremity edema, Capillary Refill Less than 3 Seconds Skin: Multiple scabbed over lower extremities. Musculoskeletal: No Tenderness to Palpation of Joints or Extremities Neurological: Flapping tremor present. No acute focal deficit or asymmetry. GCS E4,V4M5 13 Psych/Mental Status: Flat affect. Weight / BMI Weight Weight: 161 lb 9.581 oz Body Mass Index (BMI) 23.1 ABG / Lab / Microbiology Data Result Diagrams: 08/06/21 04:30 08/06/21 04:30 Microbiology: Microbiology 08/04/21 08:10 Blood Culture (Wb) - Anticubital Left Blood Culture - Final Staphylococcus aureus 08/05/21 08:50 Blood Culture (Wb) - Pic Blood Culture - Preliminary Staphylococcus aureus 08/04/21 08:00 Blood Culture (Wb) - Pic Blood Culture - Preliminary Staphylococcus aureus 08/03/21 16:00 Urine Catheter - Parekr Urine Culture - Final Staphylococcus aureus 08/03/21 08:38 Blood Culture (Wb) - Anticubital Left Bacteria Detection (PCR) - Final Staphylococcus aureus 08/03/21 08:38 Blood Culture (Wb) - Anticubital Left Blood Culture - Final Staphylococcus aureus 08/03/21 08:04 Blood Culture (Wb) - Anticubital Right Blood Culture - Final Staphylococcus aureus 08/03/21 16:00 Urine Catheter - Parker Legionella Antigen - Final 08/03/21 16:00 Urine Catheter - Parker Streptococcus pneumoniae Antigen (M - Final ABG: ABG 08/06/21 13:30 Specimen Type ART Sample Site L Radial pH 7.46 H Bicarbonate Actual 27.2 H Total CO2 28 Base Excess 3 H O2 Saturation 96 O2 % 45 ABG pCO2 38.6 ABG pO2 77 Art Test Positive Respiration Rate 12 O2 Delivery Device BiPAP Clinical Comments 18/11 Meaningful Use Info Meaningful Use Diagnoses (Choose all that apply): None applicable Discharge Plan Admission Admit Date/Time: 08/03/21 12:07 Attending Provider: Bert Brody Primary Care Provider: Julio Underwood Consulting Providers: Kunal Prince ; Junior Barbosa ; Henny Ennis NP ; Roberto Bravo Discharge Orders/Prescriptions Prescriptions: No Action lactulose 20 gram/30 mL solution 20 g PO BID Qty: 3000 RF: 1 prednisone 10 mg tablet See Rx Instructions PO DAILY Qty: 60 RF: 0 spironolactone 50 mg tablet 50 mg PO DAILY Qty: 30 RF: 6 furosemide 40 mg tablet 40 mg PO DAILY Qty: 30 RF: 6 pantoprazole [Protonix] 40 mg tablet,delayed release (DR/EC) 40 mg PO BID Qty: 60 RF: 6 carvedilol 6.25 mg tablet 6.25 mg PO BID Qty: 60 RF: 6 sucralfate [Carafate] 100 mg/mL suspension 10 ml PO Q6H 28 Days Qty: 1120 RF: 0 Referrals / Follow Up: Julio Underwood DO [Primary Care Provider] - Disposition Disposition (needs filled in before D/C Order can be placed): Acute Care Hospital Charges/Coding Visit Charges Inpatient E&M: [id number] Disch Hosp
[2021-08-08 12:21] LABS: Pathologist Review Reviewed
[2021-08-08 12:49] LABS: Pathologist Review Reviewed
[2021-08-08 12:49] LABS: Pathologist Review Reviewed
== END 2021-08-07 08:35 | disposition short-term general hospital (02) | DRG 871 ==
LOC: ED 09:56 → ICU 15:28 → PCU 15:28
PROVIDERS: Family Medicine; Internal Medicine Critical Care Medicine; Internal Medicine Gastroenterology; Emergency Provider Emergency Medicine; PCP Family Medicine; Visit Provider Internal Medicine
DX: A41.01 Sepsis due to Methicillin susceptible Staphylococcus aureus (principal); K76.7 Hepatorenal syndrome; J96.01 Acute respiratory failure with hypoxia; R65.21 Severe sepsis with septic shock; G93.41 Metabolic encephalopathy; J15.211 Pneumonia due to Methicillin susceptible Staphylococcus aureus; K25.4 Chronic or unspecified gastric ulcer with hemorrhage; J13 Pneumonia due to Streptococcus pneumoniae; D68.4 Acquired coagulation factor deficiency; B37.81 Candidal esophagitis; E27.40 Unspecified adrenocortical insufficiency; N17.9 Acute kidney failure, unspecified; K76.6 Portal hypertension; I85.00 Esophageal varices without bleeding; I48.92 Unspecified atrial flutter; I24.8 Other forms of acute ischemic heart disease; E87.2 Acidosis; E87.1 Hypo-osmolality and hyponatremia; N39.0 Urinary tract infection, site not specified; I11.0 Hypertensive heart disease with heart failure; I48.0 Paroxysmal atrial fibrillation; K70.31 Alcoholic cirrhosis of liver with ascites; I50.9 Heart failure, unspecified; D69.6 Thrombocytopenia, unspecified; K76.1 Chronic passive congestion of liver; E87.5 Hyperkalemia; K70.11 Alcoholic hepatitis with ascites; B37.9 Candidiasis, unspecified; K76.0 Fatty (change of) liver, not elsewhere classified; K80.20 Calculus of gallbladder without cholecystitis without obstruction; D69.59 Other secondary thrombocytopenia; B95.3 Streptococcus pneumoniae as the cause of diseases classified elsewhere; K31.89 Other diseases of stomach and duodenum; D64.9 Anemia, unspecified; Z51.5 Encounter for palliative care; K26.9 Duodenal ulcer, unspecified as acute or chronic, without hemorrhage or perforation; R77.8 Other specified abnormalities of plasma proteins; Z28.310 Unvaccinated for COVID-19; Z28.9 Immunization not carried out for unspecified reason
CPT/HCPCS: 36415; 36569; 36600; 71045; 76700; 80053; 80076; 80202; 81001; 82140; 82533; 82803; 83605; 83615; 84484; 85025; 85610; 87040; 87077; 87086; 87088; 87149; 87186; 87449; 93005; 93306; 94002; 94003; 94640; 94667; 97110; 97161; 97165; 97530; 97535; 97802; 99251; 99285; J7030; J7040; J7050; J7120; P9047; Q9957; A4216; C8929; G0463; J0696; J1940; J2405; J3490